=== PATIENT | female | born 1950 ===

== ENCOUNTER 2017-07-02 11:03 | Inpatient (IN) | payer MEDICARE ==
[2017-07-02] MEDS ORDERED: Sodium Chloride 0.9% 1,000 ML IV ONE (11:32)
[2017-07-02] MEDS ORDERED: Octreotide 1,250 MCG in Dextrose 5% In Water 250 ML IV STA (11:34)
[2017-07-02 11:38] LABS: BASO % 0.3 % (0.0-2.0); EOS % 0.1 % (0.0-4.0); HEMATOCRIT 40.9 % (34.0-47.0); LYMPH # 1.4 K/uL (1.0-4.3); LYMPH % 22.6 % (20.0-40.0); MEAN CELL VOLUME 86.3 fL (81.0-99.0); MEAN CORPUSCULAR HGB CONC 31.3 g/dL (33.0-37.0); MONO # 0.6 K/uL (0.0-0.8); MONO % 9.8 % (0.0-10.0); NRBC % 0.1 % (0.0-2.0); PLATELET COUNT 310 K/uL (130-400); RED CELL DISTRIBUTION WIDTH 15.6 % (11.5-14.5)
[2017-07-02] MEDS ORDERED: Pantoprazole 80 MG in Sodium Chloride 0.9% 100 ML IVP SCH (11:45)
[2017-07-02 11:47] LABS: INR 2.4
[2017-07-02 11:50] LABS: ALB/GLOB RATIO 1.3 (1.0-2.1); ALKALINE PHOSPHATASE 99 U/L (38-126); ALT/SGPT 712 U/L (9-52); AST/SGOT 738 U/L (14-36); BILIRUBIN,TOTAL 0.6 mg/dL (0.2-1.3); BLOOD UREA NITROGEN 19 mg/dL (7-17); CALCIUM 8.9 mg/dl (8.6-10.4); CARBON DIOXIDE 23 mmol/L (22-30); CHLORIDE 104 mmol/L (98-107); GFR AFRICAN-AMERICAN 23; GLUCOSE,RANDOM 73 mg/dL (65-105); POTASSIUM 3.2 mmol/L (3.6-5.2); SODIUM 147 mmol/L (132-148)
--- NOTE | 2017-07-02 11:59 | RAD ---
PROCEDURE: CHEST RADIOGRAPH, 1 VIEW HISTORY: R/O Infiltrate S/P intubation COMPARISON: None available. FINDINGS: LUNGS: There are heterogeneous patchy opacities at the right lung more prominent at the lower lobe. The ET tube is seen at appropriate position with the T is approximately 3.4 centimeter above the [place]. PLEURA: No pneumothorax or pleural fluid seen. CARDIOVASCULAR: Normal. OSSEOUS STRUCTURES: No significant abnormalities. VISUALIZED UPPER ABDOMEN: The NG tube seen extending to the stomach. OTHER FINDINGS: None. IMPRESSION: Diffuse heterogeneous opacities at the right lung more prominent at the right lower lobe. Appropriate position of the support devices.
[2017-07-02] MEDS ORDERED: Iodixanol 320 MG/ML 200 ML BOTTLE IV ONE (12:04)
--- NOTE | 2017-07-02 12:07 | C.PDOC ---
History Of Present Illness Patient is a 66 y/o female who presents to the ED by EMS for unconsciousness and hematemesis. 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 Chief Complaint (Nursing): GI Problem Past Medical History Vital Signs: Last Vital Signs Temp 99.1 F 07/02/17 11:04 Pulse 73 07/02/17 11:15 Resp 20 07/02/17 11:15 BP 72/43 L 07/02/17 11:15 Pulse Ox - Medical History PMH: Atrial Fibrillation, HTN - Social History Hx Alcohol Use: No Hx Substance Use: No (unknown) - Immunization History Hx Tetanus Toxoid Vaccination: No Hx Influenza Vaccination: No ED Course And Treatment - Laboratory Results Result Diagrams: 07/02/17 11:32 Disposition - Disposition Forms: Method (Czech)
--- NOTE | 2017-07-02 12:07 | C.PDOC ---
History Of Present Illness Patient is a 66 y/o female who presents to the ED for GI bleed. EMS was called by daughter who found her at home unconscious with blood coming out of mouth; patient given one push epi x1 and i-gel airway by EMS prior to arrival. EMS reports patient was 66 systolic and actively puking blood in bed. Patient was last known well yesterday; family states patient is on morphine and xanax, and sometimes can take more than prescribed amount due to forgetfulness. Chief Complaint (Nursing): GI Problem History Per: Patient History/Exam Limitations: other (LOC. ) Onset/Duration Of Symptoms: Mins Current Symptoms Are (Timing): Still Present Number Of Bleeding Episodes: Unknown Associated Symptoms: Hematemesis Recent travel outside of the [place]: No Additional History Per: EMS, Family Past Medical History Reviewed: Historical Data, Nursing Documentation, Vital Signs Vital Signs: Last Vital Signs Temp 97.8 F 07/02/17 13:16 Pulse 105 H 07/02/17 13:16 Resp 80 H 07/02/17 13:16 BP 92/62 L 07/02/17 13:16 Pulse Ox 85 L 07/02/17 13:16 - Medical History PMH: Atrial Fibrillation, Bipolar Disorder, Depression, HTN Surgical History: No Surg Hx Family History: States: No Known Family Hx - Social History Hx Alcohol Use: No Hx Substance Use: No (unknown) - Immunization History Hx Tetanus Toxoid Vaccination: No Hx Influenza Vaccination: No Review Of Systems Review Of Systems: ROS cannot be obtained secondary to pt's inabilty to answer questions. Physical Exam - Physical Exam Appears: Other (unconscious; blood on mouth/face) Head: Atraumatic, Normacephalic Eye(s): bilateral: Normal Inspection (pupils dilated) Oral Mucosa: Moist Respiratory: Decreased Breath Sounds (hoarse bilaterally; sounds diminished on R side. ) Gastrointestinal/Abdominal: Soft, No Distention ED Course And Treatment - Laboratory Results Result Diagrams: 07/02/17 11:32 07/02/17 11:32 - Physician Consult Information Time Consulting Physician Contacted: 12:00 Physician Contacted: Mario Cates Critical Care Time - Critical Care Note Total Time (in mins): 60 Comments: critical patient Documented critical care: time excludes all time spent performing seperately billable procedures. Procedure: Blank - Time Time Performed: 11:15 - Time Out Time Out: Patient ID confirmed - Procedure Procedure:: intubation - Consent obtained: Consent obtained: Emergent consent implied - Performed by: Performed by:: Attending physician - Indications Indications(s):: unresponsive, airway management - Contraindications: Contraindications:: None - Result Result: Successful - Patient Tolerated Procedure Patient Tolerated Procedure:: Well Progress - Time Time: 01:20 Medical Decision Making Medical Decision Making: ED: Patient was not maintaining own airway and was administered glidescope intubation. Two IV lines were placed and patient was started on non-type blood; patient was pressurized NS and was started on pressers for HTN. ICU attending at bedside along with family. To be admitted in ICU. Plan: Blood work, CT Chest and CT A/P, EKG, UA, and ventilators ordered; Ocretoctide and Protonix IV drips and IV fluids administered. Disposition Discussed With : Bora Ball Counseled Patient/Family Regarding: Studies Performed, Diagnosis - Disposition Disposition: HOSPITALIZED Disposition Time: 12:05 Condition: CRITICAL - Clinical Impression Clinical Impression: Gastrointestinal hemorrhage - Scribe Statement The provider has reviewed the documentation as recorded by the Scribe Karime Aguirre All medical record entries made by the Scribe were at my direction and personally dictated by me. I have reviewed the chart and agree that the record accurately reflects my personal performance of the history, physical exam, medical decision making, and the department course for this patient. I have also personally directed, reviewed, and agree with the discharge instructions and disposition. Decision To Admit - Pt Status Changed To: Hospital Disposition Of: Inpatient - Admit Certification Admit to Inpatient:: After my assessment, the patient will require hospitalization for at least two midnights. This is because of the severity of symptoms shown, intensity of services needed, and/or the medical risk in this patient being treated as an outpatient. - InPatient: Physician Admission Certification: I certify that this patient requires 2 or more midnights of care for the following reason:: gi bleed - . Bed Request Type: ICU Patient Diagnosis: Gastrointestinal hemorrhage Addendum Addendum: 07/02/17 13:[address] to right groin , no complications
[2017-07-02] MEDS ORDERED: Sodium Chloride 0.9% 3,000 ML IV ONE (12:26)
[2017-07-02] MEDS: Pantoprazole 80 MG in Sodium Chloride 0.9% 100 ML IVPB SCH ×2 (13:04→21:59)
[2017-07-02 13:05] LABS: LARGE PLATELETS PRESENT; METAMYELOCYTE 4 % (0-0); MYELOCYTE 1 % (0-0); NEUTROPHIL 39 % (50-75); PLATELET CLUMPS PRESENT; TOTAL CELLS COUNTED 100
[2017-07-02 13:06] LABS: SPHEROCYTES SLIGHT
[2017-07-02] MEDS: Phenylephrine 30 MG in Sodium Chloride 0.9% 250 ML IV PRN ×2 (13:06→19:49)
[2017-07-02 13:35] LABS: RBC URINE 11 /hpf (0-3); URINE BACTERIA OCC (<OCC); URINE BILIRUBIN NEGATIVE (NEGATIVE); URINE BLOOD 3+ (NEGATIVE); URINE GLUCOSE (UA) NORMAL (Normal); URINE KETONE NEGATIVE (NEGATIVE); URINE LEUKOCYTE ESTERASE NEG Leu/uL (Negative); URINE PROTEIN 2+ mg/dL (NEGATIVE); URINE UROBILINOGEN NORMAL mg/dL (0.2-1.0); WBC URINE 5 /hpf (0-5)
[2017-07-02 13:37] LABS: URINE COLOR YELLOW (YELLOW)
[2017-07-02] MEDS ORDERED: Naloxone 0.4 mg/ml Inj (Adult) ONE (14:05)
[2017-07-02] MEDS ORDERED: Sodium Chloride 0.9% 0 ML IV ONE (14:11)
[2017-07-02] MEDS ORDERED: EPINEPHrine 1 mg/ml (1:1000) Inj ONE (14:11)
[2017-07-02] MEDS ORDERED: Lidocaine 2% Inj (20ml) ONE (14:12)
[2017-07-02 14:35] LABS: ALCOHOL SERUM < 10 mg/dl (0-10)
--- NOTE | 2017-07-02 14:38 | CP.PCM.CON ---
History of Present Illness - History of Present Illness History of Present Illness: 66yo F. PMHx Atrial Fibrillation, Bipolar Disorder, Depression, HTN. was found down at home by daughter vomiting bloody material. EMS called, intubated with LMA in field, ketamine and vecuronium given. Reintubated in ED. Transfused 2 units PRBC and given 4L saline boluses. Femoral TLC placed sterile in ED. Transferred to ICU, urgent bronchoscopy performed for suspected aspiration with ongoing hypoxia. Review of Systems - Review of Systems Systems not reviewed;Unavailable: Intubated Past Patient History - Past Social History Smoking Status: Heavy Smoker > 10 Cigarettes Daily - CARDIAC Hx Atrial Fibrillation: Yes Hx Hypertension: Yes - PSYCHIATRIC Hx Bipolar Disorder: Yes Hx Depression: Yes Hx Substance Use: No (unknown) - SURGICAL HISTORY Hx Surgeries: No - ANESTHESIA Hx Anesthesia: No Hx Anesthesia Reactions: No Meds Allergies/Adverse Reactions: Allergies Allergy/AdvReac Type Severity Reaction Status Date / Time No Known Allergies Allergy Unverified 07/02/17 11:13 - Medications Medications: Current Medications Sodium Chloride (Sodium Chloride 0.9%) 1,000 mls @ 100 mls/hr IV .Q10H ONE Stop: 07/02/17 21:31 Last Admin: 07/02/17 11:30 Dose: 100 mls/hr Octreotide Acetate 1,250 mcg/ (Dextrose) 252.5 mls @ 5.05 mls/hr IV .Q24H STA; 25 MCG/HR PRN Reason: Protocol Stop: 07/03/17 11:33 Last Admin: 07/02/17 13:05 Dose: 5.05 mls/hr Pantoprazole Sodium 80 mg/ (Sodium Chloride) 100 mls @ 10 mls/hr IVPB .Q10H STEPHANE PRN Reason: 8 MG/HR Last Admin: 07/02/17 13:04 Dose: 10 mls/hr Phenylephrine HCl 30 mg/ (Sodium Chloride) 253 mls @ 50.6 mls/hr IV .Q5H PRN; Protocol; 100 MCG/MIN PRN Reason: TITRATE PER MD ORDER Last Admin: 07/02/17 13:06 Dose: 50.6 mls/hr Sodium Chloride (Sodium Chloride 0.9%) 3,000 mls @ 1,000 mls/hr IV .Q3H ONE Stop: 07/02/17 15:25 Last Admin: 07/02/17 13:05 Dose: 1,000 mls/hr Physical Exam - Head Exam Head Exam: ATRAUMATIC, NORMAL INSPECTION, NORMOCEPHALIC - Eye Exam Eye Exam: Normal appearance Pupil Exam: Fixed, Miosis. absent: NORMAL ACCOMODATION, PERRL - ENT Exam ENT Exam: Mucous Membranes Moist, Normal Exam - Respiratory Exam Respiratory Exam: Rhonchi - Cardiovascular Exam Cardiovascular Exam: Tachycardia, REGULAR RHYTHM - GI/Abdominal Exam GI & Abdominal Exam: Normal Bowel Sounds, Soft. absent: Tenderness - Neurological Exam Additional comments: unresponsive, no corneals, no gag, possibly paralytic still present. Results - Vital Signs Recent Vital Signs: Last Vital Signs Temp 97.6 F 07/02/17 13:45 Pulse 105 H 07/02/17 13:45 Resp 20 07/02/17 13:45 BP 103/51 L 07/02/17 13:45 Pulse Ox 8 L 07/02/17 13:45 - Labs Result Diagrams: 07/02/17 11:32 07/02/17 11:32 Labs: Laboratory Results - last 24 hr 07/02/17 07/02/17 13:09 13:09 Urine Color Yellow Urine Clarity Hazy Urine pH 5.0 Ur Specific [place] 1.025 Urine Protein 2+ H Urine Glucose (UA) Normal Urine Ketones Negative Urine Blood 3+ H Urine Nitrate Negative Urine Bilirubin Negative Urine Urobilinogen Normal Ur Leukocyte Esterase Neg Urine WBC (Auto) 5 Urine RBC (Auto) 11 H Ur Squamous Epith Cells 1 Amorphous Sediment Few H Urine Bacteria Occ H Urine Opiates Screen Positive Urine Methadone Screen Negative Ur Barbiturates Screen Negative Ur Phencyclidine Scrn Negative Ur Amphetamines Screen Negative U Benzodiazepines Scrn Positive U Oth Cocaine Metabols Negative U Cannabinoids Screen Negative Assessment & Plan (1) Gastrointestinal hemorrhage Assessment and Plan: 66yo F. PMHx Atrial Fibrillation, Bipolar Disorder, Depression, HTN. p/w possible coffee ground emesis c/b aspiration. Neuro: unresponsive, possible paralytic (given by EMS) still present. Patient may have overdosed on Xanax and Morphine, gave Narcan, no change. Pulm: aspiration pneumonitis, probable pneumonia. Performed bronch - CV: septic shock, started on levophed. Hem: no anemia on first h/h (prior to transfusion), making it unlikely GI bleed. 2 PRBC units given in ED with 4L saline boluses. Renal: acute renal failure, baseline unknown. Will monitor urine output. Endo: no acute issues GI: GI consulted for EGD for possible GI bleed, octreotide gtt, protonix gtt. ID: septic shock, starting Zosyn for aspiration pneumonia. DVT proph - heparin sq GI proph - protonix gtt rick for strict I/O's during acute illness Code status - full code Critical Care Time spent 50 minutes Multi-disciplinary rounds were performed with house staff, nursing, speech therapy, respiratory therapy, pharmacy and nutrition with integrated input from the primary team/attending and other consulting services. The documented time is cumulative and includes review of patient data/exams/labs/chart review and examination of the patient on rounds and throughout the day; time is exclusive of any procedures or teaching time. Status: Acute
[2017-07-02] MEDS ORDERED: Propofol 10 mg/ml Inj (20 ML) ONE (15:35)
[2017-07-02] MEDS ORDERED: Naloxone 0.4 mg/ml Inj (Adult) IVP ONE (15:53)
[2017-07-02] MEDS: Piperacill/Tazo 2.25gm in Dex 2.25 GM/50 ML BAG IVPB SCH ×2 (16:09→23:21)
--- NOTE | 2017-07-02 16:11 | PCM.OP ---
Operative Report - Operative Report Date of Surgery/Procedure: 07/02/17 Time of Surgery/Procedure: 16:50 Surgeon: Tono Tejada Anesthesia/Sedation: none Pre-Operative Diagnosis: aspiration pneumonitis Post-Operative Diagnosis: aspiration pneumonitis Indication for Surgery: to try to improve oxygenation Operative Findings: Vilma visualized and normal. The trachobronchial tree of the right and left lungs was examined to at least the first subsegmental level. Bronchial mucosa and anatomy were normal. Lots of bilious material seen throughout the right lung [place]. Performed bronchoalveolar lavage of all branches up to at least the first subsegmental level. No endobronchial lesions were noted and no secretions. Patient tolerated procedure well. Patient also did not react throughout procedure with no sedation given. Procedure/Operation Description: bronchoscopy Estimated Blood Loss: 0ml Complications: none Discharge & Condition: still in septic shock on pressors, before and after procedure.
[2017-07-02 16:36] LABS: HEMATOCRIT 52.7 % (34.0-47.0); MEAN CELL VOLUME 86.6 fL (81.0-99.0); MEAN CORPUSCULAR HEMOGLOBIN 27.3 pg (27.0-31.0); MEAN CORPUSCULAR HGB CONC 31.5 g/dL (33.0-37.0); RED CELL DISTRIBUTION WIDTH 15.7 % (11.5-14.5)
[2017-07-02 16:43] LABS: WHITE BLOOD COUNT 2.5 K/uL (4.8-10.8)
[2017-07-02 16:46] LABS: POTASSIUM 3.9 mmol/L (3.6-5.2)
[2017-07-02 16:48] LABS: ALB/GLOB RATIO 1.1 (1.0-2.1); BILIRUBIN,TOTAL 0.9 mg/dL (0.2-1.3); TOTAL PROTEIN 5.6 g/dL (6.3-8.3)
[2017-07-02 16:49] LABS: CALCIUM 7.3 mg/dl (8.6-10.4); MAGNESIUM 1.7 mg/dL (1.6-2.3); PHOSPHOROUS 5.6 mg/dL (2.5-4.5)
[2017-07-02 17:29] LABS: ABG MECHANICAL RATE 20; ARTERIAL BLOOD GAS MODE PRVC; ARTERIAL BLOOD HGB O2 SAT 88.2 % (95.0-98.0); ATERIAL BLOOD GAS PEEP 14; CARBOXYHEMOGLOBIN 1.3 % (0.5-1.5); DRAW SITE RBA; HHB 9.7 % (0.0-5.0); METHEMOGLOBIN 0.9 % (0.0-3.0)
[2017-07-02 17:43] LABS: ABG ALLEN TEST POS; ARTERIAL BLOOD GAS MODE PRVC; ARTERIAL BLOOD HGB O2 SAT 85.5 % (95.0-98.0); ATERIAL BLOOD GAS PEEP 5; CARBOXYHEMOGLOBIN 2.1 % (0.5-1.5); DRAW SITE RR; HHB 11.7 % (0.0-5.0); METHEMOGLOBIN 0.7 % (0.0-3.0)
[2017-07-02] MEDS ORDERED: Sodium Bicarbonate 8.4% 150 MEQ in Sodium Chloride 0.45% 850 ML IV SCH (17:45)
[2017-07-02] MEDS ORDERED: Sodium Bicarbonate (8.4%) 50 Meq Syringe IVP ONE (17:46)
[2017-07-02] MEDS ORDERED: Albumin Human 25% (12.5 gm/50 ml) IV ONE (19:12)
[2017-07-02 20:27] LABS: VENOUS BLOOD GAS BASE EXCESS -6.9 mmol/L (0.0-2.0); VENOUS BLOOD GAS MODE PRVC; VENOUS BLOOD GAS PCO2 90 mmHg (40-60); VENOUS BLOOD PH 7.06 (7.32-7.43)
[2017-07-02 20:31] LABS: EOS % 0.1 % (0.0-4.0); LYMPH # 0.3 K/uL (1.0-4.3); MONO # 0.1 K/uL (0.0-0.8)
[2017-07-02 20:36] LABS: BASO % 0.1 % (0.0-2.0); HEMATOCRIT 50.4 % (34.0-47.0); LYMPH % 29.6 % (20.0-40.0); MEAN CELL VOLUME 85.2 fL (81.0-99.0); MEAN CORPUSCULAR HEMOGLOBIN 27.4 pg (27.0-31.0); MEAN CORPUSCULAR HGB CONC 32.2 g/dL (33.0-37.0); MEAN PLATELET VOLUME 9.1 fL (7.2-11.7); MONO % 5.4 % (0.0-10.0); NRBC % 2.1 % (0.0-2.0); PLATELET COUNT 188 K/uL (130-400); RED CELL DISTRIBUTION WIDTH 15.7 % (11.5-14.5)
[2017-07-02 20:45] LABS: INR 2.6
[2017-07-02 20:47] LABS: ALB/GLOB RATIO 1.2 (1.0-2.1); BILIRUBIN,TOTAL 0.9 mg/dL (0.2-1.3); CALCIUM 7.3 mg/dl (8.6-10.4); MAGNESIUM 1.6 mg/dL (1.6-2.3); PHOSPHOROUS 5.3 mg/dL (2.5-4.5); POTASSIUM 3.5 mmol/L (3.6-5.2); TOTAL PROTEIN 5.2 g/dL (6.3-8.3)
[2017-07-02 21:42] LABS: METAMYELOCYTE 1 % (0-0); NEUTROPHIL 41 % (50-75); NUCLEATED RED BLOOD CELL 2 % (0-0); TOTAL CELLS COUNTED 100
[2017-07-02 21:44] LABS: LARGE PLATELETS PRESENT
--- NOTE | 2017-07-02 22:38 | CP.PCM.HP ---
History of Present Illness - History of Present Illness History of Present Illness: 66yo F. PMHx Atrial Fibrillation, Bipolar Disorder, Depression, HTN. was found down at home by daughter vomiting bloody material. EMS called, intubated with LMA in field, ketamine and vecuronium given. Reintubated in ED. Transfused 2 units PRBC and given 4L saline boluses. Femoral TLC placed sterile in ED. Transferred to ICU, urgent bronchoscopy performed for suspected aspiration with ongoing hypoxia. Present on Admission - Present on Admission Any Indicators Present on Admission: No Past Patient History - Past Medical History & Family History Past Medical History?: Yes - Past Social History Smoking Status: Heavy Smoker > 10 Cigarettes Daily - CARDIAC Hx Atrial Fibrillation: Yes Hx Hypertension: Yes - PULMONARY Hx Respiratory Disorders: No - NEUROLOGICAL Hx Neurological Disorder: No - HEENT Hx HEENT Problems: No - RENAL Hx Chronic Kidney Disease: No - ENDOCRINE/METABOLIC Hx Endocrine Disorders: No - HEMATOLOGICAL/ONCOLOGICAL Hx Blood Disorders: No - INTEGUMENTARY Hx Dermatological Problems: No - MUSCULOSKELETAL/RHEUMATOLOGICAL Hx Falls: Yes - GASTROINTESTINAL Hx Gastrointestinal Disorders: No - GENITOURINARY/GYNECOLOGICAL Hx Genitourinary Disorders: No - PSYCHIATRIC Hx Bipolar Disorder: Yes Hx Depression: Yes Hx Substance Use: No (unknown) - SURGICAL HISTORY Hx Surgeries: No - ANESTHESIA Hx Anesthesia: No Hx Anesthesia Reactions: No Meds Allergies/Adverse Reactions: Allergies Allergy/AdvReac Type Severity Reaction Status Date / Time No Known Allergies Allergy Unverified 07/02/17 11:13 Results - Vital Signs Recent Vital Signs: Last Vital Signs Temp 98.1 F 07/02/17 20:00 Pulse 114 H 07/02/17 20:30 Resp 26 H 07/02/17 20:30 BP 72/36 L 07/02/17 20:28 Pulse Ox 89 L 07/02/17 20:30 - Labs Result Diagrams: 07/03/17 06:00 07/03/17 06:00 Labs: Laboratory Results - last 24 hr 07/02/17 07/02/17 07/02/17 13:09 13:09 16:33 WBC 2.5 L D RBC 6.09 H Hgb 16.6 H D Hct 52.7 H MCV 86.6 MCH 27.3 MCHC 31.5 L RDW 15.7 H Plt Count 226 MPV 9.0 Neut % (Auto) Lymph % (Auto) [place] % (Auto) Eos % (Auto) Baso % (Auto) Neut # Lymph # [place] # Eos # Baso # Neutrophils % (Manual) Band Neutrophils % Lymphocytes % (Manual) Monocytes % (Manual) Metamyelocytes % Nucleated RBC % Platelet Estimate Large Platelets Poikilocytosis (manual Anisocytosis (manual) Ovalocytes PT INR APTT Puncture Site pCO2 pO2 HCO3 ABG pH ABG Total CO2 ABG O2 Saturation ABG Base Excess ABG Hemoglobin ABG Carboxyhemoglobin POC ABG HHb (Measured) ABG Methemoglobin Yaw Test VBG pH VBG pCO2 VBG HCO3 VBG Total CO2 VBG O2 Sat (Calc) VBG Base Excess VBG Potassium A-a O2 Difference Respiratory Index Hgb O2 Saturation Glucose Lactate Vent Mode Mechanical Rate FiO2 Tidal Volume PEEP Crit Value Called To Crit Value Called By Crit Value Read Back Blood Gas Notified Time Sodium Potassium Chloride Carbon Dioxide Anion Gap BUN Creatinine Est GFR ( Amer) Est GFR (Non-Af Amer) Random Glucose Lactic Acid Calcium Phosphorus Magnesium Total Bilirubin AST ALT Alkaline Phosphatase Ammonia Total Creatine Kinase CK-MB (Mass) Troponin I, Quant Total Protein Albumin Globulin Albumin/Globulin Ratio Venous Blood Potassium Urine Color Yellow Urine Clarity Hazy Urine pH 5.0 Ur Specific [place] 1.025 Urine Protein 2+ H Urine Glucose (UA) Normal Urine Ketones Negative Urine Blood 3+ H Urine Nitrate Negative Urine Bilirubin Negative Urine Urobilinogen Normal Ur Leukocyte Esterase Neg Urine WBC (Auto) 5 Urine RBC (Auto) 11 H Ur Squamous Epith Cells 1 Amorphous Sediment Few H Urine Bacteria Occ H Urine Opiates Screen Positive Urine Methadone Screen Negative Ur Barbiturates Screen Negative Ur Phencyclidine Scrn Negative Ur Amphetamines Screen Negative U Benzodiazepines Scrn Positive U Oth Cocaine Metabols Negative U Cannabinoids Screen Negative 07/02/17 07/02/17 07/02/17 16:33 16:33 17:25 WBC RBC Hgb Hct MCV MCH MCHC RDW Plt Count MPV Neut % (Auto) Lymph % (Auto) [place] % (Auto) Eos % (Auto) Baso % (Auto) Neut # Lymph # [place] # Eos # Baso # Neutrophils % (Manual) Band Neutrophils % Lymphocytes % (Manual) Monocytes % (Manual) Metamyelocytes % Nucleated RBC % Platelet Estimate Large Platelets Poikilocytosis (manual Anisocytosis (manual) Ovalocytes PT INR APTT Puncture Site Rba pCO2 84 H* pO2 58 L HCO3 12.3 L ABG pH 6.95 L* ABG Total CO2 21.1 L ABG O2 Saturation 90.1 L ABG Base Excess -15.8 L ABG Hemoglobin 17.1 ABG Carboxyhemoglobin 1.3 POC ABG HHb (Measured) 9.7 H ABG Methemoglobin 0.9 Yaw Test Na VBG pH VBG pCO2 VBG HCO3 VBG Total CO2 VBG O2 Sat (Calc) VBG Base Excess VBG Potassium A-a O2 Difference 550.0 Respiratory Index 9.5 Hgb O2 Saturation 88.2 L Glucose Lactate Vent Mode Prvc Mechanical Rate 20 FiO2 100.0 Tidal Volume 470 PEEP 14 Crit Value Called To [facility] nurse abel Crit Value Called By Fariha vyas Crit Value Read Back Y Blood Gas Notified Time 1729 Sodium 142 Potassium 3.9 Chloride 111 H Carbon Dioxide 21 L Anion Gap 14 BUN 20 H Creatinine 2.5 H Est GFR ( Amer) 23 Est GFR (Non-Af Amer) 19 Random Glucose 58 L Lactic Acid 3.0 H Calcium 7.3 L Phosphorus 5.6 H Magnesium 1.7 Total Bilirubin 0.9 AST 3894 H ALT 4119 H Alkaline Phosphatase 110 Ammonia Total Creatine Kinase 6070 H CK-MB (Mass) 33.1 H Troponin I, Quant 1.9000 H* Total Protein 5.6 L Albumin 3.0 L Globulin 2.6 Albumin/Globulin Ratio 1.1 Venous Blood Potassium Urine Color Urine Clarity Urine pH Ur Specific [place] Urine Protein Urine Glucose (UA) Urine Ketones Urine Blood Urine Nitrate Urine Bilirubin Urine Urobilinogen Ur Leukocyte Esterase Urine WBC (Auto) Urine RBC (Auto) Ur Squamous Epith Cells Amorphous Sediment Urine Bacteria Urine Opiates Screen Urine Methadone Screen Ur Barbiturates Screen Ur Phencyclidine Scrn Ur Amphetamines Screen U Benzodiazepines Scrn U Oth Cocaine Metabols U Cannabinoids Screen 07/02/17 07/02/17 07/02/17 20:21 20:26 20:26 WBC 1.0 L* D RBC 5.91 H Hgb 16.2 H Hct 50.4 H MCV 85.2 MCH 27.4 MCHC 32.2 L RDW 15.7 H Plt Count 188 MPV 9.1 Neut % (Auto) 64.8 Lymph % (Auto) 29.6 [place] % (Auto) 5.4 Eos % (Auto) 0.1 Baso % (Auto) 0.1 Neut # 0.6 L Lymph # 0.3 L [place] # 0.1 Eos # 0.0 Baso # 0.0 Neutrophils % (Manual) 41 L Band Neutrophils % 17 H* Lymphocytes % (Manual) 35 Monocytes % (Manual) 6 Metamyelocytes % 1 H Nucleated RBC % 2 H Platelet Estimate Normal Large Platelets Present Poikilocytosis (manual Slight Anisocytosis (manual) Slight Ovalocytes Slight PT 29.9 H* INR 2.6 APTT 33 Puncture Site pCO2 pO2 25 L HCO3 ABG pH ABG Total CO2 ABG O2 Saturation ABG Base Excess ABG Hemoglobin ABG Carboxyhemoglobin POC ABG HHb (Measured) ABG Methemoglobin Yaw Test VBG pH 7.06 L* VBG pCO2 90 H* VBG HCO3 17.5 VBG Total CO2 28.3 H VBG O2 Sat (Calc) 48.4 VBG Base Excess -6.9 L VBG Potassium 3.5 L A-a O2 Difference Respiratory Index Hgb O2 Saturation Glucose 52 L Lactate 3.9 H Vent Mode Mechanical Rate FiO2 100.0 Tidal Volume PEEP 18 Crit Value Called To Dr. diop Crit Value Called By Fariha vyas Crit Value Read Back Y Blood Gas Notified Time 2026 Sodium 144.0 Potassium Chloride 109.0 H Carbon Dioxide Anion Gap BUN Creatinine Est GFR ( Amer) Est GFR (Non-Af Amer) Random Glucose Lactic Acid Calcium Phosphorus Magnesium Total Bilirubin AST ALT Alkaline Phosphatase Ammonia Total Creatine Kinase CK-MB (Mass) Troponin I, Quant Total Protein Albumin Globulin Albumin/Globulin Ratio Venous Blood Potassium 3.5 L Urine Color Urine Clarity Urine pH Ur Specific [place] Urine Protein Urine Glucose (UA) Urine Ketones Urine Blood Urine Nitrate Urine Bilirubin Urine Urobilinogen Ur Leukocyte Esterase Urine WBC (Auto) Urine RBC (Auto) Ur Squamous Epith Cells Amorphous Sediment Urine Bacteria Urine Opiates Screen Urine Methadone Screen Ur Barbiturates Screen Ur Phencyclidine Scrn Ur Amphetamines Screen U Benzodiazepines Scrn U Oth Cocaine Metabols U Cannabinoids Screen 07/02/17 07/02/17 20:26 20:26 WBC RBC Hgb Hct MCV MCH MCHC RDW Plt Count MPV Neut % (Auto) Lymph % (Auto) [place] % (Auto) Eos % (Auto) Baso % (Auto) Neut # Lymph # [place] # Eos # Baso # Neutrophils % (Manual) Band Neutrophils % Lymphocytes % (Manual) Monocytes % (Manual) Metamyelocytes % Nucleated RBC % Platelet Estimate Large Platelets Poikilocytosis (manual Anisocytosis (manual) Ovalocytes PT INR APTT Puncture Site pCO2 pO2 HCO3 ABG pH ABG Total CO2 ABG O2 Saturation ABG Base Excess ABG Hemoglobin ABG Carboxyhemoglobin POC ABG HHb (Measured) ABG Methemoglobin Yaw Test VBG pH VBG pCO2 VBG HCO3 VBG Total CO2 VBG O2 Sat (Calc) VBG Base Excess VBG Potassium A-a O2 Difference Respiratory Index Hgb O2 Saturation Glucose Lactate Vent Mode Mechanical Rate FiO2 Tidal Volume PEEP Crit Value Called To Crit Value Called By Crit Value Read Back Blood Gas Notified Time Sodium 146 Potassium 3.5 L Chloride 107 Carbon Dioxide 27 Anion Gap 16 BUN 22 H Creatinine 2.8 H Est GFR ( Amer) 21 Est GFR (Non-Af Amer) 17 Random Glucose 42 L Lactic Acid Calcium 7.3 L Phosphorus 5.3 H Magnesium 1.6 Total Bilirubin 0.9 AST 4880 H ALT 4012 H Alkaline Phosphatase 100 Ammonia 29 Total Creatine Kinase 5456 H CK-MB (Mass) Troponin I, Quant Total Protein 5.2 L Albumin 2.8 L Globulin 2.4 Albumin/Globulin Ratio 1.2 Venous Blood Potassium Urine Color Urine Clarity Urine pH Ur Specific [place] Urine Protein Urine Glucose (UA) Urine Ketones Urine Blood Urine Nitrate Urine Bilirubin Urine Urobilinogen Ur Leukocyte Esterase Urine WBC (Auto) Urine RBC (Auto) Ur Squamous Epith Cells Amorphous Sediment Urine Bacteria Urine Opiates Screen Urine Methadone Screen Ur Barbiturates Screen Ur Phencyclidine Scrn Ur Amphetamines Screen U Benzodiazepines Scrn U Oth Cocaine Metabols U Cannabinoids Screen
[2017-07-02 22:41] LABS: VENOUS BLOOD GAS MODE PRVC; VENOUS BLOOD GAS PCO2 81 mmHg (40-60); VENOUS BLOOD PH 7.09 (7.32-7.43)
[2017-07-02] MEDS ORDERED: Dextrose 50% SYRINGE Inj (50 ml) IV STA (23:04)
[2017-07-02] MEDS: Sodium Bicarbonate 8.4% 150 MEQ in Dextrose 5% In Water 1,000 ML IV SCH (23:39)
[2017-07-03] MEDS ORDERED: Budesonide 0.5 mg/2 ml Inhal Susp UD INH SCH (00:08)
[2017-07-03 01:12] LABS: ABG ALLEN TEST POS; ABG MECHANICAL RATE 28; ARTERIAL BLOOD GAS MODE PRVC; ATERIAL BLOOD GAS PEEP 16; DRAW SITE R RAD
[2017-07-03] MEDS: Phenylephrine 30 MG in Sodium Chloride 0.9% 250 ML IV PRN ×5 (04:46→21:07)
[2017-07-03 06:11] LABS: BASO % 0.5 % (0.0-2.0); EOS # 0.1 K/uL (0.0-0.7); EOS % 2.5 % (0.0-4.0); LYMPH # 0.4 K/uL (1.0-4.3); LYMPH % 12.5 % (20.0-40.0); MEAN CELL VOLUME 85.5 fL (81.0-99.0); MEAN CORPUSCULAR HEMOGLOBIN 27.5 pg (27.0-31.0); MEAN CORPUSCULAR HGB CONC 32.2 g/dL (33.0-37.0); MEAN PLATELET VOLUME 9.9 fL (7.2-11.7); MONO # 0.1 K/uL (0.0-0.8); MONO % 2.5 % (0.0-10.0); NRBC % 1.3 % (0.0-2.0); PLATELET COUNT 150 K/uL (130-400); RED CELL DISTRIBUTION WIDTH 15.6 % (11.5-14.5); WHITE BLOOD COUNT 3.4 K/uL (4.8-10.8)
[2017-07-03 06:25] LABS: POTASSIUM 2.8 mmol/L (3.6-5.2)
[2017-07-03 06:27] LABS: BILIRUBIN,TOTAL 1.1 mg/dL (0.2-1.3)
[2017-07-03 06:28] LABS: ALB/GLOB RATIO 1.3 (1.0-2.1); CALCIUM 6.8 mg/dl (8.6-10.4); MAGNESIUM 1.4 mg/dL (1.6-2.3); TOTAL PROTEIN 4.9 g/dL (6.3-8.3)
[2017-07-03 06:36] LABS: INR 2.6
[2017-07-03 06:56] LABS: TROPONIN I 4.86 ng/mL (0.00-0.120)
[2017-07-03] MEDS: Pantoprazole 80 MG in Sodium Chloride 0.9% 100 ML IVPB SCH (07:05)
[2017-07-03] MEDS: Piperacill/Tazo 2.25gm in Dex 2.25 GM/50 ML BAG IVPB SCH ×3 (07:11→22:50)
[2017-07-03] MEDS: Magnesium Sulfate 1 gm in D5W 1 GM/100 ML BAG IVPB SCH ×2 (07:45→09:13)
[2017-07-03] MEDS: Sodium Bicarbonate 8.4% 150 MEQ in Dextrose 5% In Water 1,000 ML IV SCH ×3 (07:46→22:07)
[2017-07-03] MEDS: Albuterol-Ipratrop 3 mg / 0.5 (3 ml) UD INH SCH ×2 (07:55→13:53)
--- NOTE | 2017-07-03 08:23 | CP.PCM.CON ---
History of Present Illness - History of Present Illness History of Present Illness: consultation requested for hx and management of atrial fibrillation HPI: 66-year-old female with past medical history significant for chronic atrial fibrillation on oral anticoagulation with Eliquis beta-blockers had CARIE cardioversion 2 while she was in [place]. According to the daughter they just moved over from [place] and [place] and who was recently evaluated by a clinical research director in [place]. At baseline she had severely limited activity and was barely able to do our activities of daily living without assistance. Done the day of presentation she was found by her daughter on the morning in her bed with noted puking of blood on the bedside. EMS found her blood pressure to be in the 60s she was given 1 dose of epinephrine and was brought to the emergency room and electively intubated and apparently patient had laryngeal mask airway is on these field and was brought over to the emergency room where she was intubated emergently. Patient at the time of my evaluation was in severe state of shock with 4 pressors unresponsive. Heart rate was 140s range. Review of Systems - Review of Systems All systems: reviewed and no additional remarkable complaints except - Constitutional Constitutional: As Per HPI - EENT Eyes: As Per HPI Ears: As Per HPI Nose/Mouth/Throat: As Per HPI - Breasts Breasts: As Per HPI - Cardiovascular Cardiovascular: As Per HPI - Respiratory Respiratory: As Per HPI - Gastrointestinal Gastrointestinal: As Per HPI - Genitourinary Genitourinary: As Per HPI - Reproductive: Female Reproductive:Female: As Per HPI - Menstruation Menstruation: As Per HPI - Musculoskeletal Musculoskeletal: As Per HPI - Integumentary Integumentary: As Per HPI - Neurological Neurological: As Per HPI - Psychiatric Psychiatric: As Per HPI - Endocrine Endocrine: As Per HPI - Hematologic/Lymphatic Hematologic: As Per HPI Past Patient History - Past Medical History & Family History Past Medical History?: Yes Pertinent Family History: +ve for HTN and DM - Past Social History Smoking Status: Heavy Smoker > 10 Cigarettes Daily - CARDIAC Hx Atrial Fibrillation: Yes Hx Hypertension: Yes - PULMONARY Hx Respiratory Disorders: No - NEUROLOGICAL Hx Neurological Disorder: No - HEENT Hx HEENT Problems: No - RENAL Hx Chronic Kidney Disease: No - ENDOCRINE/METABOLIC Hx Endocrine Disorders: No - HEMATOLOGICAL/ONCOLOGICAL Hx Blood Disorders: No - INTEGUMENTARY Hx Dermatological Problems: No - MUSCULOSKELETAL/RHEUMATOLOGICAL Hx Falls: Yes - GASTROINTESTINAL Hx Gastrointestinal Disorders: No - GENITOURINARY/GYNECOLOGICAL Hx Genitourinary Disorders: No - PSYCHIATRIC Hx Bipolar Disorder: Yes Hx Depression: Yes Hx Substance Use: No (unknown) - SURGICAL HISTORY Hx Surgeries: No - ANESTHESIA Hx Anesthesia: No Hx Anesthesia Reactions: No Meds Allergies/Adverse Reactions: Allergies Allergy/AdvReac Type Severity Reaction Status Date / Time No Known Allergies Allergy Unverified 07/02/17 11:13 - Medications Medications: Current Medications Albuterol/Ipratropium (Duoneb 3 Mg/0.5 Mg (3 Ml) Ud) 3 ml INH RQ6 STEPHANE Budesonide (Pulmicort Respules) 0.5 mg INH RQ12 STEPHANE Octreotide Acetate 1,250 mcg/ (Dextrose) 252.5 mls @ 5.05 mls/hr IV .Q24H STA; 25 MCG/HR PRN Reason: Protocol Stop: 07/03/17 11:33 Last Admin: 07/02/17 13:05 Dose: 5.05 mls/hr Pantoprazole Sodium 80 mg/ (Sodium Chloride) 100 mls @ 10 mls/hr IVPB .Q10H STEPHANE PRN Reason: 8 MG/HR Last Admin: 07/03/17 07:05 Dose: 10 mls/hr Phenylephrine HCl 30 mg/ (Sodium Chloride) 253 mls @ 50.6 mls/hr IV .Q5H PRN; Protocol; 100 MCG/MIN PRN Reason: TITRATE PER MD ORDER Last Titration: 07/03/17 07:04 Dose: 118.57 mcg/min, 60 mls/hr Norepinephrine Bitartrate 8 mg (/ Sodium Chloride) 258 mls @ 7.74 mls/hr IV .Q24H PRN; Protocol; 4 MCG/MIN PRN Reason: TITRATE PER MD ORDER Last Admin: 07/03/17 07:49 Dose: 19.37 mcg/min, 37.48 mls/hr Piperacillin Sod/Tazobactam Sod (Zosyn 2.25 Gm Iv Premix) 2.25 gm in 50 mls @ 100 mls/hr IVPB Q8H STEPHANE Last Admin: 07/03/17 07:11 Dose: 100 mls/hr Sodium Bicarbonate 150 meq/ (Dextrose) 1,150 mls @ 150 mls/hr IV .Q7H40M STEPHANE Last Admin: 07/03/17 07:46 Dose: 150 mls/hr Magnesium Sulfate/Dextrose (Magnesium Sulfate 1 Gm/100 Ml D5w) 1 gm in 100 mls @ 200 mls/hr IVPB Q30M STEPHANE Stop: 07/03/17 08:29 Last Admin: 07/03/17 07:45 Dose: 200 mls/hr Potassium Chloride (Potassium Chloride 20 Meq/100 Ml) 20 meq in 100 mls @ 50 mls/hr IVPB ONCE ONE Stop: 07/03/17 09:27 Last Admin: 07/03/17 07:46 Dose: 50 mls/hr Potassium Chloride (Potassium Chloride 20 Meq/100 Ml) 20 meq in 100 mls @ 50 mls/hr IVPB ONCE ONE Stop: 07/03/17 11:29 Influenza Virus Vaccine (Afluria) 45 mcg IM .ONCE ONE Stop: 07/05/17 10:01 Pneumococcal Polyvalent Vaccine (Pneumovax 23 Vaccine) 0.5 ml IM .ONCE ONE Stop: 07/05/17 10:01 Physical Exam - Constitutional Appears: Toxic - Eye Exam Pupil Exam: Unequal - ENT Exam ENT Exam: Mucous Membranes Dry - Neck Exam Neck exam: Positive for: Normal Inspection - Respiratory Exam Respiratory Exam: Rales, Rhonchi, Respiratory Distress, Stridor - Cardiovascular Exam Cardiovascular Exam: Tachycardia, Irregular Rhythm, +S1, +S2, +S4, Systolic Murmur - GI/Abdominal Exam GI & Abdominal Exam: Hypoactive Bowel Sounds - Extremities Exam Extremities exam: Positive for: pedal pulses present - Neurological Exam Neurological exam: Altered Results - Vital Signs Recent Vital Signs: Last Vital Signs Temp 96.7 F L 07/03/17 08:00 Pulse 122 H 07/03/17 08:00 Resp 28 H 07/03/17 08:00 BP 110/86 07/03/17 08:00 Pulse Ox 97 07/03/17 08:00 - Labs Result Diagrams: 07/03/17 06:00 07/03/17 06:00 Labs: Laboratory Results - last 24 hr 07/02/17 07/02/17 07/02/17 13:09 13:09 16:33 WBC 2.5 L D RBC 6.09 H Hgb 16.6 H D Hct 52.7 H MCV 86.6 MCH 27.3 MCHC 31.5 L RDW 15.7 H Plt Count 226 MPV 9.0 Neut % (Auto) Lymph % (Auto) [place] % (Auto) Eos % (Auto) Baso % (Auto) Neut # Lymph # [facility] # Eos # Baso # Neutrophils % (Manual) Band Neutrophils % Lymphocytes % (Manual) Monocytes % (Manual) Metamyelocytes % Nucleated RBC % Platelet Estimate Large Platelets Poikilocytosis (manual Anisocytosis (manual) Ovalocytes PT INR APTT Puncture Site pCO2 pO2 HCO3 ABG pH ABG Total CO2 ABG O2 Saturation ABG Base Excess ABG Hemoglobin ABG Carboxyhemoglobin POC ABG HHb (Measured) ABG Methemoglobin Yaw Test ABG Potassium VBG pH VBG pCO2 VBG HCO3 VBG Total CO2 VBG O2 Sat (Calc) VBG Base Excess VBG Potassium A-a O2 Difference Respiratory Index Hgb O2 Saturation Glucose Lactate Vent Mode Mechanical Rate FiO2 Tidal Volume PEEP Crit Value Called To Crit Value Called By Crit Value Read Back Blood Gas Notified Time Sodium Potassium Chloride Carbon Dioxide Anion Gap BUN Creatinine Est GFR ( Amer) Est GFR (Non-Af Amer) POC Glucose (mg/dL) Random Glucose Lactic Acid Calcium Phosphorus Magnesium Total Bilirubin AST ALT Alkaline Phosphatase Ammonia Total Creatine Kinase CK-MB (Mass) Troponin I Troponin I, Quant Total Protein Albumin Globulin Albumin/Globulin Ratio Arterial Blood Potassium Venous Blood Potassium Urine Color Yellow Urine Clarity Hazy Urine pH 5.0 Ur Specific [place] 1.025 Urine Protein 2+ H Urine Glucose (UA) Normal Urine Ketones Negative Urine Blood 3+ H Urine Nitrate Negative Urine Bilirubin Negative Urine Urobilinogen Normal Ur Leukocyte Esterase Neg Urine WBC (Auto) 5 Urine RBC (Auto) 11 H Ur Squamous Epith Cells 1 Amorphous Sediment Few H Urine Bacteria Occ H Urine Opiates Screen Positive Urine Methadone Screen Negative Ur Barbiturates Screen Negative Ur Phencyclidine Scrn Negative Ur Amphetamines Screen Negative U Benzodiazepines Scrn Positive U Oth Cocaine Metabols Negative U Cannabinoids Screen Negative 07/02/17 07/02/17 07/02/17 16:33 16:33 17:25 WBC RBC Hgb Hct MCV MCH MCHC RDW Plt Count MPV Neut % (Auto) Lymph % (Auto) [facility] % (Auto) Eos % (Auto) Baso % (Auto) Neut # Lymph # [facility] [place] # Eos # Baso # Neutrophils % (Manual) Band Neutrophils % Lymphocytes % (Manual) Monocytes % (Manual) Metamyelocytes % Nucleated RBC % Platelet Estimate Large Platelets Poikilocytosis (manual Anisocytosis (manual) Ovalocytes PT INR APTT Puncture Site Rba pCO2 84 H* pO2 58 L HCO3 12.3 L ABG pH 6.95 L* ABG Total CO2 21.1 L ABG O2 Saturation 90.1 L ABG Base Excess -15.8 L ABG Hemoglobin 17.1 ABG Carboxyhemoglobin 1.3 POC ABG HHb (Measured) 9.7 H ABG Methemoglobin 0.9 Yaw Test Na ABG Potassium VBG pH VBG pCO2 VBG HCO3 VBG Total CO2 VBG O2 Sat (Calc) VBG Base Excess VBG Potassium A-a O2 Difference 550.0 Respiratory Index 9.5 Hgb O2 Saturation 88.2 L Glucose Lactate Vent Mode Prvc Mechanical Rate 20 FiO2 100.0 Tidal Volume 470 PEEP 14 Crit Value Called To [facility] nurse abel Crit Value Called By Fariha rt Crit Value Read Back Y Blood Gas Notified Time 1729 Sodium 142 Potassium 3.9 Chloride 111 H Carbon Dioxide 21 L Anion Gap 14 BUN 20 H Creatinine 2.5 H Est GFR ( Amer) 23 Est GFR (Non-Af Amer) 19 POC Glucose (mg/dL) Random Glucose 58 L Lactic Acid 3.0 H Calcium 7.3 L Phosphorus 5.6 H Magnesium 1.7 Total Bilirubin 0.9 AST 3894 H ALT 4119 H Alkaline Phosphatase 110 Ammonia Total Creatine Kinase 6070 H CK-MB (Mass) 33.1 H Troponin I Troponin I, Quant 1.9000 H* Total Protein 5.6 L Albumin 3.0 L Globulin 2.6 Albumin/Globulin Ratio 1.1 Arterial Blood Potassium Venous Blood Potassium Urine Color Urine Clarity Urine pH Ur Specific [place] Urine Protein Urine Glucose (UA) Urine Ketones Urine Blood Urine Nitrate Urine Bilirubin Urine Urobilinogen Ur Leukocyte Esterase Urine WBC (Auto) Urine RBC (Auto) Ur Squamous Epith Cells Amorphous Sediment Urine Bacteria Urine Opiates Screen Urine Methadone Screen Ur Barbiturates Screen Ur Phencyclidine Scrn Ur Amphetamines Screen U Benzodiazepines Scrn U Oth Cocaine Metabols U Cannabinoids Screen 07/02/17 07/02/17 07/02/17 20:21 20:26 20:26 WBC 1.0 L* D RBC 5.91 H Hgb 16.2 H Hct 50.4 H MCV 85.2 MCH 27.4 MCHC 32.2 L RDW 15.7 H Plt Count 188 MPV 9.1 Neut % (Auto) 64.8 Lymph % (Auto) 29.6 [facility] % (Auto) 5.4 Eos % (Auto) 0.1 Baso % (Auto) 0.1 Neut # 0.6 L Lymph # 0.[address] # 0.1 Eos # 0.0 Baso # 0.0 Neutrophils % (Manual) 41 L Band Neutrophils % 17 H* Lymphocytes % (Manual) 35 Monocytes % (Manual) 6 Metamyelocytes % 1 H Nucleated RBC % 2 H Platelet Estimate Normal Large Platelets Present Poikilocytosis (manual Slight Anisocytosis (manual) Slight Ovalocytes Slight PT 29.9 H* INR 2.6 APTT 33 Puncture Site pCO2 pO2 25 L HCO3 ABG pH ABG Total CO2 ABG O2 Saturation ABG Base Excess ABG Hemoglobin ABG Carboxyhemoglobin POC ABG HHb (Measured) ABG Methemoglobin Yaw Test ABG Potassium VBG pH 7.06 L* VBG pCO2 90 H* VBG HCO3 17.5 VBG Total CO2 28.3 H VBG O2 Sat (Calc) 48.4 VBG Base Excess -6.9 L VBG Potassium 3.5 L A-a O2 Difference Respiratory Index Hgb O2 Saturation Glucose 52 L Lactate 3.9 H Vent Mode Mechanical Rate FiO2 100.0 Tidal Volume PEEP 18 Crit Value Called To Dr. diop Crit Value Called By Fariha vyas Crit Value Read Back Y Blood Gas Notified Time 2026 Sodium 144.0 Potassium Chloride 109.0 H Carbon Dioxide Anion Gap BUN Creatinine Est GFR ( Amer) Est GFR (Non-Af Amer) POC Glucose (mg/dL) Random Glucose Lactic Acid Calcium Phosphorus Magnesium Total Bilirubin AST ALT Alkaline Phosphatase Ammonia Total Creatine Kinase CK-MB (Mass) Troponin I Troponin I, Quant Total Protein Albumin Globulin Albumin/Globulin Ratio Arterial Blood Potassium Venous Blood Potassium 3.5 L Urine Color Urine Clarity Urine pH Ur Specific [place] Urine Protein Urine Glucose (UA) Urine Ketones Urine Blood Urine Nitrate Urine Bilirubin Urine Urobilinogen Ur Leukocyte Esterase Urine WBC (Auto) Urine RBC (Auto) Ur Squamous Epith Cells Amorphous Sediment Urine Bacteria Urine Opiates Screen Urine Methadone Screen Ur Barbiturates Screen Ur Phencyclidine Scrn Ur Amphetamines Screen U Benzodiazepines Scrn U Oth Cocaine Metabols U Cannabinoids Screen 07/02/17 07/02/17 07/02/17 20:26 20:26 22:36 WBC RBC Hgb Hct MCV MCH MCHC RDW Plt Count MPV Neut % (Auto) Lymph % (Auto) [facility] % (Auto) Eos % (Auto) Baso % (Auto) Neut # Lymph # [facility] # Eos # Baso # Neutrophils % (Manual) Band Neutrophils % Lymphocytes % (Manual) Monocytes % (Manual) Metamyelocytes % Nucleated RBC % Platelet Estimate Large Platelets Poikilocytosis (manual Anisocytosis (manual) Ovalocytes PT INR APTT Puncture Site pCO2 pO2 32 HCO3 ABG pH ABG Total CO2 ABG O2 Saturation ABG Base Excess ABG Hemoglobin ABG Carboxyhemoglobin POC ABG HHb (Measured) ABG Methemoglobin Yaw Test ABG Potassium VBG pH 7.09 L* VBG pCO2 81 H* VBG HCO3 17.8 VBG Total CO2 27.1 VBG O2 Sat (Calc) 65.4 H VBG Base Excess -7.0 L VBG Potassium 3.2 L A-a O2 Difference Respiratory Index Hgb O2 Saturation Glucose 31 L* D Lactate 4.7 H* Vent Mode Mechanical Rate FiO2 100.0 Tidal Volume PEEP 18 Crit Value Called To Dr. diop Crit Value Called By Fariha rt Crit Value Read Back Y Blood Gas Notified Time 2241 Sodium 146 145.0 Potassium 3.5 L Chloride 107 110.0 H Carbon Dioxide 27 Anion Gap 16 BUN 22 H Creatinine 2.8 H Est GFR ( Amer) 21 Est GFR (Non-Af Amer) 17 POC Glucose (mg/dL) Random Glucose 42 L Lactic Acid Calcium 7.3 L Phosphorus 5.3 H Magnesium 1.6 Total Bilirubin 0.9 AST 4880 H ALT 4012 H Alkaline Phosphatase 100 Ammonia 29 Total Creatine Kinase 5456 H CK-MB (Mass) Troponin I Troponin I, Quant Total Protein 5.2 L Albumin 2.8 L Globulin 2.4 Albumin/Globulin Ratio 1.2 Arterial Blood Potassium Venous Blood Potassium 3.2 L Urine Color Urine Clarity Urine pH Ur Specific [place] Urine Protein Urine Glucose (UA) Urine Ketones Urine Blood Urine Nitrate Urine Bilirubin Urine Urobilinogen Ur Leukocyte Esterase Urine WBC (Auto) Urine RBC (Auto) Ur Squamous Epith Cells Amorphous Sediment Urine Bacteria Urine Opiates Screen Urine Methadone Screen Ur Barbiturates Screen Ur Phencyclidine Scrn Ur Amphetamines Screen U Benzodiazepines Scrn U Oth Cocaine Metabols U Cannabinoids Screen 07/02/17 07/02/17 07/03/17 23:03 23:38 00:43 WBC RBC Hgb Hct MCV MCH MCHC RDW Plt Count MPV Neut % (Auto) Lymph % (Auto) [facility] % (Auto) Eos % (Auto) Baso % (Auto) Neut # Lymph # [facility] # Eos # Baso # Neutrophils % (Manual) Band Neutrophils % Lymphocytes % (Manual) Monocytes % (Manual) Metamyelocytes % Nucleated RBC % Platelet Estimate Large Platelets Poikilocytosis (manual Anisocytosis (manual) Ovalocytes PT INR APTT Puncture Site R rad pCO2 60 H pO2 119 H HCO3 18.7 L ABG pH 7.16 L* ABG Total CO2 23.2 ABG O2 Saturation 98.9 H ABG Base Excess -8.0 L ABG Hemoglobin ABG Carboxyhemoglobin POC ABG HHb (Measured) ABG Methemoglobin Yaw Test Pos ABG Potassium 2.9 L VBG pH VBG pCO2 VBG HCO3 VBG Total CO2 VBG O2 Sat (Calc) VBG Base Excess VBG Potassium A-a O2 Difference 519.0 Respiratory Index 4.4 Hgb O2 Saturation Glucose 112 H Lactate 6.1 H* Vent Mode Prvc Mechanical Rate 28 FiO2 100.0 Tidal Volume 450 PEEP 16 Crit Value Called To Dr diop Crit Value Called By Litzy muñoz rt Crit Value Read Back Y Blood Gas Notified Time 115 Sodium 143.0 Potassium Chloride 108.0 H Carbon Dioxide Anion Gap BUN Creatinine Est GFR ( Amer) Est GFR (Non-Af Amer) POC Glucose (mg/dL) < 20 L* 85 Random Glucose Lactic Acid Calcium Phosphorus Magnesium Total Bilirubin AST ALT Alkaline Phosphatase Ammonia Total Creatine Kinase CK-MB (Mass) Troponin I Troponin I, Quant Total Protein Albumin Globulin Albumin/Globulin Ratio Arterial Blood Potassium 2.9 L Venous Blood Potassium Urine Color Urine Clarity Urine pH Ur Specific [place] Urine Protein Urine Glucose (UA) Urine Ketones Urine Blood Urine Nitrate Urine Bilirubin Urine Urobilinogen Ur Leukocyte Esterase Urine WBC (Auto) Urine RBC (Auto) Ur Squamous Epith Cells Amorphous Sediment Urine Bacteria Urine Opiates Screen Urine Methadone Screen Ur Barbiturates Screen Ur Phencyclidine Scrn Ur Amphetamines Screen U Benzodiazepines Scrn U Oth Cocaine Metabols U Cannabinoids Screen 07/03/17 07/03/17 07/03/17 02:49 05:38 06:00 WBC RBC Hgb Hct MCV MCH MCHC RDW Plt Count MPV Neut % (Auto) Lymph % (Auto) [facility] % (Auto) Eos % (Auto) Baso % (Auto) Neut # Lymph # [facility] [place] # Eos # Baso # Neutrophils % (Manual) Band Neutrophils % Lymphocytes % (Manual) Monocytes % (Manual) Metamyelocytes % Nucleated RBC % Platelet Estimate Large Platelets Poikilocytosis (manual Anisocytosis (manual) Ovalocytes PT INR APTT Puncture Site pCO2 pO2 HCO3 ABG pH ABG Total CO2 ABG O2 Saturation ABG Base Excess ABG Hemoglobin ABG Carboxyhemoglobin POC ABG HHb (Measured) ABG Methemoglobin Yaw Test ABG Potassium VBG pH VBG pCO2 VBG HCO3 VBG Total CO2 VBG O2 Sat (Calc) VBG Base Excess VBG Potassium A-a O2 Difference Respiratory Index Hgb O2 Saturation Glucose Lactate Vent Mode Mechanical Rate FiO2 Tidal Volume PEEP Crit Value Called To Crit Value Called By Crit Value Read Back Blood Gas Notified Time Sodium Potassium Chloride Carbon Dioxide Anion Gap BUN Creatinine Est GFR ( Amer) Est GFR (Non-Af Amer) POC Glucose (mg/dL) 95 96 Random Glucose Lactic Acid Calcium Phosphorus Magnesium Total Bilirubin AST ALT Alkaline Phosphatase Ammonia 25 Total Creatine Kinase CK-MB (Mass) Troponin I Troponin I, Quant Total Protein Albumin Globulin Albumin/Globulin Ratio Arterial Blood Potassium Venous Blood Potassium Urine Color Urine Clarity Urine pH Ur Specific [place] Urine Protein Urine Glucose (UA) Urine Ketones Urine Blood Urine Nitrate Urine Bilirubin Urine Urobilinogen Ur Leukocyte Esterase Urine WBC (Auto) Urine RBC (Auto) Ur Squamous Epith Cells Amorphous Sediment Urine Bacteria Urine Opiates Screen Urine Methadone Screen Ur Barbiturates Screen Ur Phencyclidine Scrn Ur Amphetamines Screen U Benzodiazepines Scrn U Oth Cocaine Metabols U Cannabinoids Screen 07/03/17 07/03/17 07/03/17 06:00 06:00 06:00 WBC 3.4 L D RBC 5.50 H Hgb 15.1 Hct 47.0 MCV 85.5 MCH 27.5 MCHC 32.2 L RDW 15.6 H Plt Count 150 MPV 9.9 Neut % (Auto) 82.0 H Lymph % (Auto) 12.[address] % (Auto) 2.5 Eos % (Auto) 2.5 Baso % (Auto) 0.5 Neut # 2.7 Lymph # 0.[address] [place] # 0.1 Eos # 0.1 Baso # 0.0 Neutrophils % (Manual) Band Neutrophils % Lymphocytes % (Manual) Monocytes % (Manual) Metamyelocytes % Nucleated RBC % Platelet Estimate Large Platelets Poikilocytosis (manual Anisocytosis (manual) Ovalocytes PT 30.5 H* INR 2.6 APTT 31 Puncture Site pCO2 pO2 HCO3 ABG pH ABG Total CO2 ABG O2 Saturation ABG Base Excess ABG Hemoglobin ABG Carboxyhemoglobin POC ABG HHb (Measured) ABG Methemoglobin Yaw Test ABG Potassium VBG pH VBG pCO2 VBG HCO3 VBG Total CO2 VBG O2 Sat (Calc) VBG Base Excess VBG Potassium A-a O2 Difference Respiratory Index Hgb O2 Saturation Glucose Lactate Vent Mode Mechanical Rate FiO2 Tidal Volume PEEP Crit Value Called To Crit Value Called By Crit Value Read Back Blood Gas Notified Time Sodium 142 Potassium 2.8 L Chloride 102 Carbon Dioxide 21 L Anion Gap 22 H BUN 27 H Creatinine 3.6 H Est GFR ( Amer) 15 Est GFR (Non-Af Amer) 13 POC Glucose (mg/dL) Random Glucose 94 Lactic Acid Calcium 6.8 L Phosphorus 5.0 H Magnesium 1.4 L Total Bilirubin 1.1 AST 5295 H ALT 4114 H Alkaline Phosphatase 87 Ammonia Total Creatine Kinase 6338 H CK-MB (Mass) 21.5 H Troponin I 4.8600 H* Troponin I, Quant Total Protein 4.9 L Albumin 2.7 L Globulin 2.1 L Albumin/Globulin Ratio 1.3 Arterial Blood Potassium Venous Blood Potassium Urine Color Urine Clarity Urine pH Ur Specific [place] Urine Protein Urine Glucose (UA) Urine Ketones Urine Blood Urine Nitrate Urine Bilirubin Urine Urobilinogen Ur Leukocyte Esterase Urine WBC (Auto) Urine RBC (Auto) Ur Squamous Epith Cells Amorphous Sediment Urine Bacteria Urine Opiates Screen Urine Methadone Screen Ur Barbiturates Screen Ur Phencyclidine Scrn Ur Amphetamines Screen U Benzodiazepines Scrn U Oth Cocaine Metabols U Cannabinoids Screen 07/03/17 08:10 WBC RBC Hgb Hct MCV MCH MCHC RDW Plt Count MPV Neut % (Auto) Lymph % (Auto) [facility] % (Auto) Eos % (Auto) Baso % (Auto) Neut # Lymph # [facility] [place] # Eos # Baso # Neutrophils % (Manual) Band Neutrophils % Lymphocytes % (Manual) Monocytes % (Manual) Metamyelocytes % Nucleated RBC % Platelet Estimate Large Platelets Poikilocytosis (manual Anisocytosis (manual) Ovalocytes PT INR APTT Puncture Site pCO2 pO2 HCO3 ABG pH ABG Total CO2 ABG O2 Saturation ABG Base Excess ABG Hemoglobin ABG Carboxyhemoglobin POC ABG HHb (Measured) ABG Methemoglobin Yaw Test ABG Potassium VBG pH VBG pCO2 VBG HCO3 VBG Total CO2 VBG O2 Sat (Calc) VBG Base Excess VBG Potassium A-a O2 Difference Respiratory Index Hgb O2 Saturation Glucose Lactate Vent Mode Mechanical Rate FiO2 Tidal Volume PEEP Crit Value Called To Crit Value Called By Crit Value Read Back Blood Gas Notified Time Sodium Potassium Chloride Carbon Dioxide Anion Gap BUN Creatinine Est GFR ( Amer) Est GFR (Non-Af Amer) POC Glucose (mg/dL) 70 Random Glucose Lactic Acid Calcium Phosphorus Magnesium Total Bilirubin AST ALT Alkaline Phosphatase Ammonia Total Creatine Kinase CK-MB (Mass) Troponin I Troponin I, Quant Total Protein Albumin Globulin Albumin/Globulin Ratio Arterial Blood Potassium Venous Blood Potassium Urine Color Urine Clarity Urine pH Ur Specific [place] Urine Protein Urine Glucose (UA) Urine Ketones Urine Blood Urine Nitrate Urine Bilirubin Urine Urobilinogen Ur Leukocyte Esterase Urine WBC (Auto) Urine RBC (Auto) Ur Squamous Epith Cells Amorphous Sediment Urine Bacteria Urine Opiates Screen Urine Methadone Screen Ur Barbiturates Screen Ur Phencyclidine Scrn Ur Amphetamines Screen U Benzodiazepines Scrn U Oth Cocaine Metabols U Cannabinoids Screen Assessment & Plan (1) Shock Assessment and Plan: on 4 pressors overall poor prognosis Status: Acute (2) Afib Assessment and Plan: with RVR 2' to shock will check echo Status: Acute (3) Gastrointestinal hemorrhage Assessment and Plan: monitor H&H Status: Acute
--- NOTE | 2017-07-03 08:28 | CP.CCUPN ---
CCU Subjective - Physician Review Subjective (Free Text): Patient seen and examined at bedside with son by her side. Patient intubated on vent, unresponsive to painful stimuli. OGT with bilious output. ROS unobtainable. 07/03/17 13:18 CCU Objective - Vital Signs / Intake & Output Vital Signs (Last 4 hours): Vital Signs Temp Pulse Resp BP Pulse Ox 07/03/17 08:15 120 H 28 H 125/71 98 07/03/17 08:00 96.7 F L 122 H 28 H 110/86 97 07/03/17 07:49 91/40 L 07/03/17 07:48 124 H 28 H 113/83 07/03/17 07:45 123 H 28 H 113/83 91 L 07/03/17 07:34 125 H 28 H 117/95 H 93 L 07/03/17 07:30 126 H 28 H 117/95 H 93 L 07/03/17 07:20 126 H 28 H 89/44 L 94 L 07/03/17 07:15 126 H 28 H 89/44 L 94 L 07/03/17 07:03 124 H 28 H 95/40 L 92 L 07/03/17 07:00 124 H 28 H 95/40 L 94 L 07/03/17 06:48 125 H 28 H 86/41 L 93 L 07/03/17 06:45 125 H 28 H 93 L 07/03/17 06:34 127 H 28 H 116/95 H 07/03/17 06:30 126 H 28 H 73/48 L 07/03/17 06:29 126 H 28 H 77/26 L 07/03/17 06:28 126 H 28 H 70/41 L 07/03/17 06:27 126 H 28 H 91/58 L 78 L 07/03/17 06:26 126 H 28 H 91/72 L 68 L 07/03/17 06:15 126 H 28 H 93 L 07/03/17 06:03 127 H 28 H 91/25 L 92 L 07/03/17 06:00 127 H 28 H 94 L 07/03/17 05:48 127 H 28 H 81/33 L 72 L 07/03/17 05:45 127 H 28 H 51 L 07/03/17 05:34 126 H 28 H 84/19 L 92 L 07/03/17 05:30 127 H 28 H 93 L 07/03/17 05:19 127 H 28 H 105/34 L 74 L 07/03/17 05:15 127 H 28 H 75 L 07/03/17 05:04 131 H 28 H 162/122 H 95 07/03/17 05:00 131 H 28 H 104/51 L 96 07/03/17 04:55 130 H 28 H 55/27 L 96 07/03/17 04:51 128 H 28 H 49/13 L 96 07/03/17 04:48 127 H 28 H 95 07/03/17 04:46 127 H 28 H 45/33 L 96 07/03/17 04:45 127 H 28 H 95 07/03/17 04:33 127 H 28 H 60/37 L 95 07/03/17 04:30 126 H 28 H 96 Intake and Output (Last 8hrs): Intake & Output 07/02/17 07/03/17 07/03/17 22:59 06:59 14:59 Intake Total 1753.7 2511.0 462.5 Output Total 300 475 0 Balance 1453.7 2036.0 462.5 Intake: IV 326 511 150 Intake, IV Amount 1427.7 2000.0 312.5 Left Forearm 40 80 10 Right Antecubital 300 100 50 Right Distal Port Femoral 287.7 300.0 37.5 Right Medial Port Femoral 35 40 5 Right Proximal Port 630 1200 150 Femoral Y port Distal TLC 135 280 60 Oral 0 0 Output: Gastric Amount 150 450 Stomach 150 450 Urine 150 25 0 Urethral (Rick) 150 25 0 - Physical Exam Head: Positive for: Atraumatic, Normocephalic Pupils: Positive for: Sluggish Mouth: Positive for: Other (ETT, OGT with bilious outpt) Respiratory/Chest: Positive for: Wheezes, Rhonchi. Negative for: Clear to Auscultation Cardiovascular: Positive for: Regular Rate and Rhythm, Normal S1, S2 Lower Extremity: Positive for: Edema Neurological: Negative for: GCS=15 Skin: Positive for: Cold. Negative for: Warm Psychiatric: Negative for: Alert, Oriented x 3 - Medications Active Medications: Active Medications Generic Name Dose Route Start Last Admin Trade Name Freq PRN Reason Stop Dose Admin Albuterol/Ipratropium 3 ml 07/03/17 02:00 Duoneb 3 Mg/0.5 Mg (3 Ml) Ud INH RQ6 STEPHANE Budesonide 0.5 mg 07/03/17 00:08 Pulmicort Respules INH RQ12 STEPHANE Octreotide Acetate 1,250 mcg/ 252.5 mls @ 5.05 mls/hr 07/02/17 11:34 13:05 Dextrose IV 07/03/17 11:33 5.05 mls/hr .Q24H STA Administration Protocol 25 MCG/HR Pantoprazole Sodium 80 mg/ 100 mls @ 10 mls/hr 07/02/17 12:00 07/03/17 07:05 Sodium Chloride IVPB 10 mls/hr .Q10H STEPHANE Administration 8 MG/HR Phenylephrine HCl 30 mg/ 253 mls @ 50.6 mls/hr 07/02/17 11:46 07/03/17 07:04 Sodium Chloride IV 118.57 mcg/min .Q5H PRN 60 mls/hr TITRATE PER MD ORDER Titration Protocol 100 MCG/MIN Norepinephrine Bitartrate 8 mg 258 mls @ 7.74 mls/hr 07/02/17 15:20 07/03/17 07:49 / Sodium Chloride IV 19.37 mcg/min .Q24H PRN 37.48 mls/hr TITRATE PER MD ORDER Administration Protocol 4 MCG/MIN Piperacillin Sod/Tazobactam Sod 2.25 gm in 50 mls @ 100 mls/hr 07/02/17 15:30 07/03/17 07:11 Zosyn 2.25 Gm Iv Premix IVPB 100 mls/hr Q8H STEPHANE Administration Sodium Bicarbonate 150 meq/ 1,150 mls @ 150 mls/hr 07/02/17 23:00 07/03/17 07 :46 Dextrose IV 150 mls/hr .Q7H40M STEPHANE Administration Magnesium Sulfate/Dextrose 1 gm in 100 mls @ 200 mls/hr 07/03/17 07:30 07:45 Magnesium Sulfate 1 Gm/100 Ml D5w IVPB 07/03/17 08:29 200 mls/hr Q30M STEPHANE Administration Potassium Chloride 20 meq in 100 mls @ 50 mls/hr 07/03/17 07:28 07/03/17 07: 46 Potassium Chloride 20 Meq/100 Ml IVPB 07/03/17 09:27 50 mls/hr ONCE ONE Administration Potassium Chloride 20 meq in 100 mls @ 50 mls/hr 07/03/17 09:30 Potassium Chloride 20 Meq/100 Ml IVPB 07/03/17 11:29 ONCE ONE Influenza Virus Vaccine 45 mcg 07/05/17 10:00 Afluria IM 07/05/17 10:01 .ONCE ONE Pneumococcal Polyvalent Vaccine 0.5 ml 07/05/17 10:00 Pneumovax 23 Vaccine IM 07/05/17 10:01 .ONCE ONE - Patient Studies Lab Studies: Lab Studies 07/03/17 07/03/17 07/03/17 Range/Units 08:10 06:00 06:00 WBC (4.8-10.8) K/uL RBC (3.80-5.20) Mil/uL Hgb (11.0-16.0) g/dL Hct (34.0-47.0) % MCV (81.0-99.0) fL MCH (27.0-31.0) pg MCHC (33.0-37.0) g/dL RDW (11.5-14.5) % Plt Count (130-400) K/uL MPV (7.2-11.7) fL Neut % (Auto) (50.0-75.0) % Lymph % (Auto) (20.0-40.0) % Yell % (Auto) (0.0-10.0) % Eos % (Auto) (0.0-4.0) % Baso % (Auto) (0.0-2.0) % Neut # (1.8-7.0) K/uL Lymph # (1.0-4.3) K/uL Yell # (0.0-0.8) K/uL Eos # (0.0-0.7) K/uL Baso # (0.0-0.2) K/uL Neutrophils % (Manual) (50-75) % Band Neutrophils % (0-2) % Lymphocytes % (Manual) (20-40) % Monocytes % (Manual) (0-10) % Metamyelocytes % (0-0) % Nucleated RBC % (0-0) % Platelet Estimate (NORMAL) Large Platelets Poikilocytosis (manual Anisocytosis (manual) Ovalocytes PT 30.5 H* (9.7-12.2) SECONDS INR 2.6 APTT 31 (21-34) SECONDS Puncture Site pCO2 (35-45) mm/Hg pO2 (80-100) mm/Hg HCO3 (21-28) mmol/L ABG pH (7.35-7.45) ABG Total CO2 (22-28) mmol/L ABG O2 Saturation (95-98) % ABG Base Excess (-2.0-3.0) mmol/L ABG Hemoglobin (11.7-17.4) g/dL ABG Carboxyhemoglobin (0.5-1.5) % POC ABG HHb (Measured) (0.0-5.0) % ABG Methemoglobin (0.0-3.0) % Yaw Test ABG Potassium (3.6-5.2) mmol/L VBG pH (7.32-7.43) VBG pCO2 (40-60) mmHg VBG HCO3 mmol/L VBG Total CO2 (22-28) mmol/L VBG O2 Sat (Calc) (40-65) % VBG Base Excess (0.0-2.0) mmol/L VBG Potassium (3.6-5.2) mmol/L A-a O2 Difference mm/Hg Respiratory Index Hgb O2 Saturation (95.0-98.0) % Glucose (65-105) mg/dl Lactate (0.7-2.1) mmol/L Vent Mode Mechanical Rate FiO2 % Tidal Volume PEEP Crit Value Called To Crit Value Called By Crit Value Read Back Blood Gas Notified Time Sodium 142 (132-148) mmol/L Potassium 2.8 L (3.6-5.2) mmol/L Chloride 102 (98-107) mmol/L Carbon Dioxide 21 L (22-30) mmol/L Anion Gap 22 H (10-20) BUN 27 H (7-17) mg/dL Creatinine 3.6 H (0.7-1.2) MG/DL Est GFR ( Amer) 15 Est GFR (Non-Af Amer) 13 POC Glucose (mg/dL) 70 (65-110) mg/dL Random Glucose 94 (65-105) mg/dL Lactic Acid (0.7-2.1) mmol/L Calcium 6.8 L (8.6-10.4) mg/dl Phosphorus 5.0 H (2.5-4.5) mg/dL Magnesium 1.4 L (1.6-2.3) mg/dL Total Bilirubin 1.1 (0.2-1.3) mg/dL AST 5295 H (14-36) U/L ALT 4114 H (9-52) U/L Alkaline Phosphatase 87 (38-126) U/L Ammonia (9-33) umol/L Total Creatine Kinase 6338 H (30-135) U/L CK-MB (Mass) 21.5 H (0.0-3.38) ng/mL Troponin I 4.8600 H* (0.00-0.120) ng/mL Troponin I, Quant (0.00-0.120) ng/mL Total Protein 4.9 L (6.3-8.3) g/dL Albumin 2.7 L (3.5-5.0) g/dL Globulin 2.1 L (2.2-3.9) gm/dL Albumin/Globulin Ratio 1.3 (1.0-2.1) Arterial Blood Potassium (3.6-5.2) mmol/L Venous Blood Potassium (3.6-5.2) mmol/L Urine Color (YELLOW) Urine Clarity (Clear) Urine pH (5.0-8.0) Ur Specific [place] (1.003-1.030) Urine Protein (NEGATIVE) mg/dL Urine Glucose (UA) (Normal) mg/dL Urine Ketones (NEGATIVE) mg/dL Urine Blood (NEGATIVE) Urine Nitrate (NEGATIVE) Urine Bilirubin (NEGATIVE) Urine Urobilinogen (0.2-1.0) mg/dL Ur Leukocyte Esterase (Negative) Kit/uL Urine WBC (Auto) (0-5) /hpf Urine RBC (Auto) (0-3) /hpf Ur Squamous Epith Cells (0-5) /hpf Amorphous Sediment (<OCC) /ul Urine Bacteria (<OCC) Urine Opiates Screen (NEGATIVE) Urine Methadone Screen (NEGATIVE) Ur Barbiturates Screen (NEGATIVE) Ur Phencyclidine Scrn (NEGATIVE) Ur Amphetamines Screen (NEGATIVE) U Benzodiazepines Scrn (NEGATIVE) U Oth Cocaine Metabols (NEGATIVE) U Cannabinoids Screen (NEGATIVE) 07/03/17 07/03/17 07/03/17 Range/Units 06:00 06:00 05:38 WBC 3.4 L D (4.8-10.8) K/uL RBC 5.50 H (3.80-5.20) Mil/uL Hgb 15.1 (11.0-16.0) g/dL Hct 47.0 (34.0-47.0) % MCV 85.5 (81.0-99.0) fL MCH 27.5 (27.0-31.0) pg MCHC 32.2 L (33.0-37.0) g/dL RDW 15.6 H (11.5-14.5) % Plt Count 150 (130-400) K/uL MPV 9.9 (7.2-11.7) fL Neut % (Auto) 82.0 H (50.0-75.0) % Lymph % (Auto) 12.5 L (20.0-40.0) % Yell % (Auto) 2.5 (0.0-10.0) % Eos % (Auto) 2.5 (0.0-4.0) % Baso % (Auto) 0.5 (0.0-2.0) % Neut # 2.7 (1.8-7.0) K/uL Lymph # 0.4 L (1.0-4.3) K/uL Yell # 0.1 (0.0-0.8) K/uL Eos # 0.1 (0.0-0.7) K/uL Baso # 0.0 (0.0-0.2) K/uL Neutrophils % (Manual) (50-75) % Band Neutrophils % (0-2) % Lymphocytes % (Manual) (20-40) % Monocytes % (Manual) (0-10) % Metamyelocytes % (0-0) % Nucleated RBC % (0-0) % Platelet Estimate (NORMAL) Large Platelets Poikilocytosis (manual Anisocytosis (manual) Ovalocytes PT (9.7-12.2) SECONDS INR APTT (21-34) SECONDS Puncture Site pCO2 (35-45) mm/Hg pO2 (80-100) mm/Hg HCO3 (21-28) mmol/L ABG pH (7.35-7.45) ABG Total CO2 (22-28) mmol/L ABG O2 Saturation (95-98) % ABG Base Excess (-2.0-3.0) mmol/L ABG Hemoglobin (11.7-17.4) g/dL ABG Carboxyhemoglobin (0.5-1.5) % POC ABG HHb (Measured) (0.0-5.0) % ABG Methemoglobin (0.0-3.0) % Yaw Test ABG Potassium (3.6-5.2) mmol/L VBG pH (7.32-7.43) VBG pCO2 (40-60) mmHg VBG HCO3 mmol/L VBG Total CO2 (22-28) mmol/L VBG O2 Sat (Calc) (40-65) % VBG Base Excess (0.0-2.0) mmol/L VBG Potassium (3.6-5.2) mmol/L A-a O2 Difference mm/Hg Respiratory Index Hgb O2 Saturation (95.0-98.0) % Glucose (65-105) mg/dl Lactate (0.7-2.1) mmol/L Vent Mode Mechanical Rate FiO2 % Tidal Volume PEEP Crit Value Called To Crit Value Called By Crit Value Read Back Blood Gas Notified Time Sodium (132-148) mmol/L Potassium (3.6-5.2) mmol/L Chloride (98-107) mmol/L Carbon Dioxide (22-30) mmol/L Anion Gap (10-20) BUN (7-17) mg/dL Creatinine (0.7-1.2) MG/DL Est GFR ( Amer) Est GFR (Non-Af Amer) POC Glucose (mg/dL) 96 (65-110) mg/dL Random Glucose (65-105) mg/dL Lactic Acid (0.7-2.1) mmol/L Calcium (8.6-10.4) mg/dl Phosphorus (2.5-4.5) mg/dL Magnesium (1.6-2.3) mg/dL Total Bilirubin (0.2-1.3) mg/dL AST (14-36) U/L ALT (9-52) U/L Alkaline Phosphatase (38-126) U/L Ammonia 25 (9-33) umol/L Total Creatine Kinase (30-135) U/L CK-MB (Mass) (0.0-3.38) ng/mL Troponin I (0.00-0.120) ng/mL Troponin I, Quant (0.00-0.120) ng/mL Total Protein (6.3-8.3) g/dL Albumin (3.5-5.0) g/dL Globulin (2.2-3.9) gm/dL Albumin/Globulin Ratio (1.0-2.1) Arterial Blood Potassium (3.6-5.2) mmol/L Venous Blood Potassium (3.6-5.2) mmol/L Urine Color (YELLOW) Urine Clarity (Clear) Urine pH (5.0-8.0) Ur Specific [place] (1.003-1.030) Urine Protein (NEGATIVE) mg/dL Urine Glucose (UA) (Normal) mg/dL Urine Ketones (NEGATIVE) mg/dL Urine Blood (NEGATIVE) Urine Nitrate (NEGATIVE) Urine Bilirubin (NEGATIVE) Urine Urobilinogen (0.2-1.0) mg/dL Ur Leukocyte Esterase (Negative) Kit/uL Urine WBC (Auto) (0-5) /hpf Urine RBC (Auto) (0-3) /hpf Ur Squamous Epith Cells (0-5) /hpf Amorphous Sediment (<OCC) /ul Urine Bacteria (<OCC) Urine Opiates Screen (NEGATIVE) Urine Methadone Screen (NEGATIVE) Ur Barbiturates Screen (NEGATIVE) Ur Phencyclidine Scrn (NEGATIVE) Ur Amphetamines Screen (NEGATIVE) U Benzodiazepines Scrn (NEGATIVE) U Oth Cocaine Metabols (NEGATIVE) U Cannabinoids Screen (NEGATIVE) 07/03/17 07/03/17 07/02/17 Range/Units 02:49 00:43 23:38 WBC (4.8-10.8) K/uL RBC (3.80-5.20) Mil/uL Hgb (11.0-16.0) g/dL Hct (34.0-47.0) % MCV (81.0-99.0) fL MCH (27.0-31.0) pg MCHC (33.0-37.0) g/dL RDW (11.5-14.5) % Plt Count (130-400) K/uL MPV (7.2-11.7) fL Neut % (Auto) (50.0-75.0) % Lymph % (Auto) (20.0-40.0) % Yell % (Auto) (0.0-10.0) % Eos % (Auto) (0.0-4.0) % Baso % (Auto) (0.0-2.0) % Neut # (1.8-7.0) K/uL Lymph # (1.0-4.3) K/uL Yell # (0.0-0.8) K/uL Eos # (0.0-0.7) K/uL Baso # (0.0-0.2) K/uL Neutrophils % (Manual) (50-75) % Band Neutrophils % (0-2) % Lymphocytes % (Manual) (20-40) % Monocytes % (Manual) (0-10) % Metamyelocytes % (0-0) % Nucleated RBC % (0-0) % Platelet Estimate (NORMAL) Large Platelets Poikilocytosis (manual Anisocytosis (manual) Ovalocytes PT (9.7-12.2) SECONDS INR APTT (21-34) SECONDS Puncture Site R rad pCO2 60 H (35-45) mm/Hg pO2 119 H (80-100) mm/Hg HCO3 18.7 L (21-28) mmol/L ABG pH 7.16 L* (7.35-7.45) ABG Total CO2 23.2 (22-28) mmol/L ABG O2 Saturation 98.9 H (95-98) % ABG Base Excess -8.0 L (-2.0-3.0) mmol/L ABG Hemoglobin (11.7-17.4) g/dL ABG Carboxyhemoglobin (0.5-1.5) % POC ABG HHb (Measured) (0.0-5.0) % ABG Methemoglobin (0.0-3.0) % Yaw Test Pos ABG Potassium 2.9 L (3.6-5.2) mmol/L VBG pH (7.32-7.43) VBG pCO2 (40-60) mmHg VBG HCO3 mmol/L VBG Total CO2 (22-28) mmol/L VBG O2 Sat (Calc) (40-65) % VBG Base Excess (0.0-2.0) mmol/L VBG Potassium (3.6-5.2) mmol/L A-a O2 Difference 519.0 mm/Hg Respiratory Index 4.4 Hgb O2 Saturation (95.0-98.0) % Glucose 112 H (65-105) mg/dl Lactate 6.1 H* (0.7-2.1) mmol/L Vent Mode Prvc Mechanical Rate 28 FiO2 100.0 % Tidal Volume 450 PEEP 16 Crit Value Called To Dr diop Crit Value Called By Litzy muñoz rt Crit Value Read Back Y Blood Gas Notified Time 115 Sodium 143.0 (132-148) mmol/L Potassium (3.6-5.2) mmol/L Chloride 108.0 H (98-107) mmol/L Carbon Dioxide (22-30) mmol/L Anion Gap (10-20) BUN (7-17) mg/dL Creatinine (0.7-1.2) MG/DL Est GFR ( Amer) Est GFR (Non-Af Amer) POC Glucose (mg/dL) 95 85 (65-110) mg/dL Random Glucose (65-105) mg/dL Lactic Acid (0.7-2.1) mmol/L Calcium (8.6-10.4) mg/dl Phosphorus (2.5-4.5) mg/dL Magnesium (1.6-2.3) mg/dL Total Bilirubin (0.2-1.3) mg/dL AST (14-36) U/L ALT (9-52) U/L Alkaline Phosphatase (38-126) U/L Ammonia (9-33) umol/L Total Creatine Kinase (30-135) U/L CK-MB (Mass) (0.0-3.38) ng/mL Troponin I (0.00-0.120) ng/mL Troponin I, Quant (0.00-0.120) ng/mL Total Protein (6.3-8.3) g/dL Albumin (3.5-5.0) g/dL Globulin (2.2-3.9) gm/dL Albumin/Globulin Ratio (1.0-2.1) Arterial Blood Potassium 2.9 L (3.6-5.2) mmol/L Venous Blood Potassium (3.6-5.2) mmol/L Urine Color (YELLOW) Urine Clarity (Clear) Urine pH (5.0-8.0) Ur Specific [place] (1.003-1.030) Urine Protein (NEGATIVE) mg/dL Urine Glucose (UA) (Normal) mg/dL Urine Ketones (NEGATIVE) mg/dL Urine Blood (NEGATIVE) Urine Nitrate (NEGATIVE) Urine Bilirubin (NEGATIVE) Urine Urobilinogen (0.2-1.0) mg/dL Ur Leukocyte Esterase (Negative) Kit/uL Urine WBC (Auto) (0-5) /hpf Urine RBC (Auto) (0-3) /hpf Ur Squamous Epith Cells (0-5) /hpf Amorphous Sediment (<OCC) /ul Urine Bacteria (<OCC) Urine Opiates Screen (NEGATIVE) Urine Methadone Screen (NEGATIVE) Ur Barbiturates Screen (NEGATIVE) Ur Phencyclidine Scrn (NEGATIVE) Ur Amphetamines Screen (NEGATIVE) U Benzodiazepines Scrn (NEGATIVE) U Oth Cocaine Metabols (NEGATIVE) U Cannabinoids Screen (NEGATIVE) 07/02/17 07/02/17 07/02/17 Range/Units 23:03 22:36 20:26 WBC (4.8-10.8) K/uL RBC (3.80-5.20) Mil/uL Hgb (11.0-16.0) g/dL Hct (34.0-47.0) % MCV (81.0-99.0) fL MCH (27.0-31.0) pg MCHC (33.0-37.0) g/dL RDW (11.5-14.5) % Plt Count (130-400) K/uL MPV (7.2-11.7) fL Neut % (Auto) (50.0-75.0) % Lymph % (Auto) (20.0-40.0) % Yell % (Auto) (0.0-10.0) % Eos % (Auto) (0.0-4.0) % Baso % (Auto) (0.0-2.0) % Neut # (1.8-7.0) K/uL Lymph # (1.0-4.3) K/uL Yell # (0.0-0.8) K/uL Eos # (0.0-0.7) K/uL Baso # (0.0-0.2) K/uL Neutrophils % (Manual) (50-75) % Band Neutrophils % (0-2) % Lymphocytes % (Manual) (20-40) % Monocytes % (Manual) (0-10) % Metamyelocytes % (0-0) % Nucleated RBC % (0-0) % Platelet Estimate (NORMAL) Large Platelets Poikilocytosis (manual Anisocytosis (manual) Ovalocytes PT (9.7-12.2) SECONDS INR APTT (21-34) SECONDS Puncture Site pCO2 (35-45) mm/Hg pO2 32 (80-100) mm/Hg HCO3 (21-28) mmol/L ABG pH (7.35-7.45) ABG Total CO2 (22-28) mmol/L ABG O2 Saturation (95-98) % ABG Base Excess (-2.0-3.0) mmol/L ABG Hemoglobin (11.7-17.4) g/dL ABG Carboxyhemoglobin (0.5-1.5) % POC ABG HHb (Measured) (0.0-5.0) % ABG Methemoglobin (0.0-3.0) % Yaw Test ABG Potassium (3.6-5.2) mmol/L VBG pH 7.09 L* (7.32-7.43) VBG pCO2 81 H* (40-60) mmHg VBG HCO3 17.8 mmol/L VBG Total CO2 27.1 (22-28) mmol/L VBG O2 Sat (Calc) 65.4 H (40-65) % VBG Base Excess -7.0 L (0.0-2.0) mmol/L VBG Potassium 3.2 L (3.6-5.2) mmol/L A-a O2 Difference mm/Hg Respiratory Index Hgb O2 Saturation (95.0-98.0) % Glucose 31 L* D (65-105) mg/dl Lactate 4.7 H* (0.7-2.1) mmol/L Vent Mode Mechanical Rate FiO2 100.0 % Tidal Volume PEEP 18 Crit Value Called To Dr. diop Crit Value Called By Fariha vyas Crit Value Read Back Y Blood Gas Notified Time 2242 Sodium 145.0 (132-148) mmol/L Potassium (3.6-5.2) mmol/L Chloride 110.0 H (98-107) mmol/L Carbon Dioxide (22-30) mmol/L Anion Gap (10-20) BUN (7-17) mg/dL Creatinine (0.7-1.2) MG/DL Est GFR ( Amer) Est GFR (Non-Af Amer) POC Glucose (mg/dL) < 20 L* (65-110) mg/dL Random Glucose (65-105) mg/dL Lactic Acid (0.7-2.1) mmol/L Calcium (8.6-10.4) mg/dl Phosphorus (2.5-4.5) mg/dL Magnesium (1.6-2.3) mg/dL Total Bilirubin (0.2-1.3) mg/dL AST (14-36) U/L ALT (9-52) U/L Alkaline Phosphatase (38-126) U/L Ammonia 29 (9-33) umol/L Total Creatine Kinase (30-135) U/L CK-MB (Mass) (0.0-3.38) ng/mL Troponin I (0.00-0.120) ng/mL Troponin I, Quant (0.00-0.120) ng/mL Total Protein (6.3-8.3) g/dL Albumin (3.5-5.0) g/dL Globulin (2.2-3.9) gm/dL Albumin/Globulin Ratio (1.0-2.1) Arterial Blood Potassium (3.6-5.2) mmol/L Venous Blood Potassium 3.2 L (3.6-5.2) mmol/L Urine Color (YELLOW) Urine Clarity (Clear) Urine pH (5.0-8.0) Ur Specific [place] (1.003-1.030) Urine Protein (NEGATIVE) mg/dL Urine Glucose (UA) (Normal) mg/dL Urine Ketones (NEGATIVE) mg/dL Urine Blood (NEGATIVE) Urine Nitrate (NEGATIVE) Urine Bilirubin (NEGATIVE) Urine Urobilinogen (0.2-1.0) mg/dL Ur Leukocyte Esterase (Negative) Kit/uL Urine WBC (Auto) (0-5) /hpf Urine RBC (Auto) (0-3) /hpf Ur Squamous Epith Cells (0-5) /hpf Amorphous Sediment (<OCC) /ul Urine Bacteria (<OCC) Urine Opiates Screen (NEGATIVE) Urine Methadone Screen (NEGATIVE) Ur Barbiturates Screen (NEGATIVE) Ur Phencyclidine Scrn (NEGATIVE) Ur Amphetamines Screen (NEGATIVE) U Benzodiazepines Scrn (NEGATIVE) U Oth Cocaine Metabols (NEGATIVE) U Cannabinoids Screen (NEGATIVE) 07/02/17 07/02/17 07/02/17 Range/Units 20:26 20:26 20:26 WBC 1.0 L* D (4.8-10.8) K/uL RBC 5.91 H (3.80-5.20) Mil/uL Hgb 16.2 H (11.0-16.0) g/dL Hct 50.4 H (34.0-47.0) % MCV 85.2 (81.0-99.0) fL MCH 27.4 (27.0-31.0) pg MCHC 32.2 L (33.0-37.0) g/dL RDW 15.7 H (11.5-14.5) % Plt Count 188 (130-400) K/uL MPV 9.1 (7.2-11.7) fL Neut % (Auto) 64.8 (50.0-75.0) % Lymph % (Auto) 29.6 (20.0-40.0) % Yell % (Auto) 5.4 (0.0-10.0) % Eos % (Auto) 0.1 (0.0-4.0) % Baso % (Auto) 0.1 (0.0-2.0) % Neut # 0.6 L (1.8-7.0) K/uL Lymph # 0.3 L (1.0-4.3) K/uL Yell # 0.1 (0.0-0.8) K/uL Eos # 0.0 (0.0-0.7) K/uL Baso # 0.0 (0.0-0.2) K/uL Neutrophils % (Manual) 41 L (50-75) % Band Neutrophils % 17 H* (0-2) % Lymphocytes % (Manual) 35 (20-40) % Monocytes % (Manual) 6 (0-10) % Metamyelocytes % 1 H (0-0) % Nucleated RBC % 2 H (0-0) % Platelet Estimate Normal (NORMAL) Large Platelets Present Poikilocytosis (manual Slight Anisocytosis (manual) Slight Ovalocytes Slight PT 29.9 H* (9.7-12.2) SECONDS INR 2.6 APTT 33 (21-34) SECONDS Puncture Site pCO2 (35-45) mm/Hg pO2 (80-100) mm/Hg HCO3 (21-28) mmol/L ABG pH (7.35-7.45) ABG Total CO2 (22-28) mmol/L ABG O2 Saturation (95-98) % ABG Base Excess (-2.0-3.0) mmol/L ABG Hemoglobin (11.7-17.4) g/dL ABG Carboxyhemoglobin (0.5-1.5) % POC ABG HHb (Measured) (0.0-5.0) % ABG Methemoglobin (0.0-3.0) % Yaw Test ABG Potassium (3.6-5.2) mmol/L VBG pH (7.32-7.43) VBG pCO2 (40-60) mmHg VBG HCO3 mmol/L VBG Total CO2 (22-28) mmol/L VBG O2 Sat (Calc) (40-65) % VBG Base Excess (0.0-2.0) mmol/L VBG Potassium (3.6-5.2) mmol/L A-a O2 Difference mm/Hg Respiratory Index Hgb O2 Saturation (95.0-98.0) % Glucose (65-105) mg/dl Lactate (0.7-2.1) mmol/L Vent Mode Mechanical Rate FiO2 % Tidal Volume PEEP Crit Value Called To Crit Value Called By Crit Value Read Back Blood Gas Notified Time Sodium 146 (132-148) mmol/L Potassium 3.5 L (3.6-5.2) mmol/L Chloride 107 (98-107) mmol/L Carbon Dioxide 27 (22-30) mmol/L Anion Gap 16 (10-20) BUN 22 H (7-17) mg/dL Creatinine 2.8 H (0.7-1.2) MG/DL Est GFR ( Amer) 21 Est GFR (Non-Af Amer) 17 POC Glucose (mg/dL) (65-110) mg/dL Random Glucose 42 L (65-105) mg/dL Lactic Acid (0.7-2.1) mmol/L Calcium 7.3 L (8.6-10.4) mg/dl Phosphorus 5.3 H (2.5-4.5) mg/dL Magnesium 1.6 (1.6-2.3) mg/dL Total Bilirubin 0.9 (0.2-1.3) mg/dL AST 4880 H (14-36) U/L ALT 4012 H (9-52) U/L Alkaline Phosphatase 100 (38-126) U/L Ammonia (9-33) umol/L Total Creatine Kinase 5456 H (30-135) U/L CK-MB (Mass) (0.0-3.38) ng/mL Troponin I (0.00-0.120) ng/mL Troponin I, Quant (0.00-0.120) ng/mL Total Protein 5.2 L (6.3-8.3) g/dL Albumin 2.8 L (3.5-5.0) g/dL Globulin 2.4 (2.2-3.9) gm/dL Albumin/Globulin Ratio 1.2 (1.0-2.1) Arterial Blood Potassium (3.6-5.2) mmol/L Venous Blood Potassium (3.6-5.2) mmol/L Urine Color (YELLOW) Urine Clarity (Clear) Urine pH (5.0-8.0) Ur Specific [place] (1.003-1.030) Urine Protein (NEGATIVE) mg/dL Urine Glucose (UA) (Normal) mg/dL Urine Ketones (NEGATIVE) mg/dL Urine Blood (NEGATIVE) Urine Nitrate (NEGATIVE) Urine Bilirubin (NEGATIVE) Urine Urobilinogen (0.2-1.0) mg/dL Ur Leukocyte Esterase (Negative) Kit/uL Urine WBC (Auto) (0-5) /hpf Urine RBC (Auto) (0-3) /hpf Ur Squamous Epith Cells (0-5) /hpf Amorphous Sediment (<OCC) /ul Urine Bacteria (<OCC) Urine Opiates Screen (NEGATIVE) Urine Methadone Screen (NEGATIVE) Ur Barbiturates Screen (NEGATIVE) Ur Phencyclidine Scrn (NEGATIVE) Ur Amphetamines Screen (NEGATIVE) U Benzodiazepines Scrn (NEGATIVE) U Oth Cocaine Metabols (NEGATIVE) U Cannabinoids Screen (NEGATIVE) 07/02/17 07/02/17 07/02/17 Range/Units 20:21 17:25 16:33 WBC (4.8-10.8) K/uL RBC (3.80-5.20) Mil/uL Hgb (11.0-16.0) g/dL Hct (34.0-47.0) % MCV (81.0-99.0) fL MCH (27.0-31.0) pg MCHC (33.0-37.0) g/dL RDW (11.5-14.5) % Plt Count (130-400) K/uL MPV (7.2-11.7) fL Neut % (Auto) (50.0-75.0) % Lymph % (Auto) (20.0-40.0) % Yell % (Auto) (0.0-10.0) % Eos % (Auto) (0.0-4.0) % Baso % (Auto) (0.0-2.0) % Neut # (1.8-7.0) K/uL Lymph # (1.0-4.3) K/uL Yell # (0.0-0.8) K/uL Eos # (0.0-0.7) K/uL Baso # (0.0-0.2) K/uL Neutrophils % (Manual) (50-75) % Band Neutrophils % (0-2) % Lymphocytes % (Manual) (20-40) % Monocytes % (Manual) (0-10) % Metamyelocytes % (0-0) % Nucleated RBC % (0-0) % Platelet Estimate (NORMAL) Large Platelets Poikilocytosis (manual Anisocytosis (manual) Ovalocytes PT (9.7-12.2) SECONDS INR APTT (21-34) SECONDS Puncture Site Rba pCO2 84 H* (35-45) mm/Hg pO2 25 L 58 L (80-100) mm/Hg HCO3 12.3 L (21-28) mmol/L ABG pH 6.95 L* (7.35-7.45) ABG Total CO2 21.1 L (22-28) mmol/L ABG O2 Saturation 90.1 L (95-98) % ABG Base Excess -15.8 L (-2.0-3.0) mmol/L ABG Hemoglobin 17.1 (11.7-17.4) g/dL ABG Carboxyhemoglobin 1.3 (0.5-1.5) % POC ABG HHb (Measured) 9.7 H (0.0-5.0) % ABG Methemoglobin 0.9 (0.0-3.0) % Yaw Test Na ABG Potassium (3.6-5.2) mmol/L VBG pH 7.06 L* (7.32-7.43) VBG pCO2 90 H* (40-60) mmHg VBG HCO3 17.5 mmol/L VBG Total CO2 28.3 H (22-28) mmol/L VBG O2 Sat (Calc) 48.4 (40-65) % VBG Base Excess -6.9 L (0.0-2.0) mmol/L VBG Potassium 3.5 L (3.6-5.2) mmol/L A-a O2 Difference 550.0 mm/Hg Respiratory Index 9.5 Hgb O2 Saturation 88.2 L (95.0-98.0) % Glucose 52 L (65-105) mg/dl Lactate 3.9 H (0.7-2.1) mmol/L Vent Mode Prvc Mechanical Rate 20 FiO2 100.0 100.0 % Tidal Volume 470 PEEP 18 14 Crit Value Called To Dr. diop [facility] nurse abel Crit Value Called By Fariha Fried rt Crit Value Read Back Y Y Blood Gas Notified Time 2026 1728 Sodium 144.0 (132-148) mmol/L Potassium (3.6-5.2) mmol/L Chloride 109.0 H (98-107) mmol/L Carbon Dioxide (22-30) mmol/L Anion Gap (10-20) BUN (7-17) mg/dL Creatinine (0.7-1.2) MG/DL Est GFR ( Amer) Est GFR (Non-Af Amer) POC Glucose (mg/dL) (65-110) mg/dL Random Glucose (65-105) mg/dL Lactic Acid 3.0 H (0.7-2.1) mmol/L Calcium (8.6-10.4) mg/dl Phosphorus (2.5-4.5) mg/dL Magnesium (1.6-2.3) mg/dL Total Bilirubin (0.2-1.3) mg/dL AST (14-36) U/L ALT (9-52) U/L Alkaline Phosphatase (38-126) U/L Ammonia (9-33) umol/L Total Creatine Kinase (30-135) U/L CK-MB (Mass) (0.0-3.38) ng/mL Troponin I (0.00-0.120) ng/mL Troponin I, Quant (0.00-0.120) ng/mL Total Protein (6.3-8.3) g/dL Albumin (3.5-5.0) g/dL Globulin (2.2-3.9) gm/dL Albumin/Globulin Ratio (1.0-2.1) Arterial Blood Potassium (3.6-5.2) mmol/L Venous Blood Potassium 3.5 L (3.6-5.2) mmol/L Urine Color (YELLOW) Urine Clarity (Clear) Urine pH (5.0-8.0) Ur Specific [place] (1.003-1.030) Urine Protein (NEGATIVE) mg/dL Urine Glucose (UA) (Normal) mg/dL Urine Ketones (NEGATIVE) mg/dL Urine Blood (NEGATIVE) Urine Nitrate (NEGATIVE) Urine Bilirubin (NEGATIVE) Urine Urobilinogen (0.2-1.0) mg/dL Ur Leukocyte Esterase (Negative) Kit/uL Urine WBC (Auto) (0-5) /hpf Urine RBC (Auto) (0-3) /hpf Ur Squamous Epith Cells (0-5) /hpf Amorphous Sediment (<OCC) /ul Urine Bacteria (<OCC) Urine Opiates Screen (NEGATIVE) Urine Methadone Screen (NEGATIVE) Ur Barbiturates Screen (NEGATIVE) Ur Phencyclidine Scrn (NEGATIVE) Ur Amphetamines Screen (NEGATIVE) U Benzodiazepines Scrn (NEGATIVE) U Oth Cocaine Metabols (NEGATIVE) U Cannabinoids Screen (NEGATIVE) 07/02/17 07/02/17 07/02/17 Range/Units 16:33 16:33 13:09 WBC 2.5 L D (4.8-10.8) K/uL RBC 6.09 H (3.80-5.20) Mil/uL Hgb 16.6 H D (11.0-16.0) g/dL Hct 52.7 H (34.0-47.0) % MCV 86.6 (81.0-99.0) fL MCH 27.3 (27.0-31.0) pg MCHC 31.5 L (33.0-37.0) g/dL RDW 15.7 H (11.5-14.5) % Plt Count 226 (130-400) K/uL MPV 9.0 (7.2-11.7) fL Neut % (Auto) (50.0-75.0) % Lymph % (Auto) (20.0-40.0) % Yell % (Auto) (0.0-10.0) % Eos % (Auto) (0.0-4.0) % Baso % (Auto) (0.0-2.0) % Neut # (1.8-7.0) K/uL Lymph # (1.0-4.3) K/uL Yell # (0.0-0.8) K/uL Eos # (0.0-0.7) K/uL Baso # (0.0-0.2) K/uL Neutrophils % (Manual) (50-75) % Band Neutrophils % (0-2) % Lymphocytes % (Manual) (20-40) % Monocytes % (Manual) (0-10) % Metamyelocytes % (0-0) % Nucleated RBC % (0-0) % Platelet Estimate (NORMAL) Large Platelets Poikilocytosis (manual Anisocytosis (manual) Ovalocytes PT (9.7-12.2) SECONDS INR APTT (21-34) SECONDS Puncture Site pCO2 (35-45) mm/Hg pO2 (80-100) mm/Hg HCO3 (21-28) mmol/L ABG pH (7.35-7.45) ABG Total CO2 (22-28) mmol/L ABG O2 Saturation (95-98) % ABG Base Excess (-2.0-3.0) mmol/L ABG Hemoglobin (11.7-17.4) g/dL ABG Carboxyhemoglobin (0.5-1.5) % POC ABG HHb (Measured) (0.0-5.0) % ABG Methemoglobin (0.0-3.0) % Yaw Test ABG Potassium (3.6-5.2) mmol/L VBG pH (7.32-7.43) VBG pCO2 (40-60) mmHg VBG HCO3 mmol/L VBG Total CO2 (22-28) mmol/L VBG O2 Sat (Calc) (40-65) % VBG Base Excess (0.0-2.0) mmol/L VBG Potassium (3.6-5.2) mmol/L A-a O2 Difference mm/Hg Respiratory Index Hgb O2 Saturation (95.0-98.0) % Glucose (65-105) mg/dl Lactate (0.7-2.1) mmol/L Vent Mode Mechanical Rate FiO2 % Tidal Volume PEEP Crit Value Called To Crit Value Called By Crit Value Read Back Blood Gas Notified Time Sodium 142 (132-148) mmol/L Potassium 3.9 (3.6-5.2) mmol/L Chloride 111 H (98-107) mmol/L Carbon Dioxide 21 L (22-30) mmol/L Anion Gap 14 (10-20) BUN 20 H (7-17) mg/dL Creatinine 2.5 H (0.7-1.2) MG/DL Est GFR ( Amer) 23 Est GFR (Non-Af Amer) 19 POC Glucose (mg/dL) (65-110) mg/dL Random Glucose 58 L (65-105) mg/dL Lactic Acid (0.7-2.1) mmol/L Calcium 7.3 L (8.6-10.4) mg/dl Phosphorus 5.6 H (2.5-4.5) mg/dL Magnesium 1.7 (1.6-2.3) mg/dL Total Bilirubin 0.9 (0.2-1.3) mg/dL AST 3894 H (14-36) U/L ALT 4119 H (9-52) U/L Alkaline Phosphatase 110 (38-126) U/L Ammonia (9-33) umol/L Total Creatine Kinase 6070 H (30-135) U/L CK-MB (Mass) 33.1 H (0.0-3.38) ng/mL Troponin I (0.00-0.120) ng/mL Troponin I, Quant 1.9000 H* (0.00-0.120) ng/mL Total Protein 5.6 L (6.3-8.3) g/dL Albumin 3.0 L (3.5-5.0) g/dL Globulin 2.6 (2.2-3.9) gm/dL Albumin/Globulin Ratio 1.1 (1.0-2.1) Arterial Blood Potassium (3.6-5.2) mmol/L Venous Blood Potassium (3.6-5.2) mmol/L Urine Color Yellow (YELLOW) Urine Clarity Hazy (Clear) Urine pH 5.0 (5.0-8.0) Ur Specific [place] 1.025 (1.003-1.030) Urine Protein 2+ H (NEGATIVE) mg/dL Urine Glucose (UA) Normal (Normal) mg/dL Urine Ketones Negative (NEGATIVE) mg/dL Urine Blood 3+ H (NEGATIVE) Urine Nitrate Negative (NEGATIVE) Urine Bilirubin Negative (NEGATIVE) Urine Urobilinogen Normal (0.2-1.0) mg/dL Ur Leukocyte Esterase Neg (Negative) Kit/uL Urine WBC (Auto) 5 (0-5) /hpf Urine RBC (Auto) 11 H (0-3) /hpf Ur Squamous Epith Cells 1 (0-5) /hpf Amorphous Sediment Few H (<OCC) /ul Urine Bacteria Occ H (<OCC) Urine Opiates Screen (NEGATIVE) Urine Methadone Screen (NEGATIVE) Ur Barbiturates Screen (NEGATIVE) Ur Phencyclidine Scrn (NEGATIVE) Ur Amphetamines Screen (NEGATIVE) U Benzodiazepines Scrn (NEGATIVE) U Oth Cocaine Metabols (NEGATIVE) U Cannabinoids Screen (NEGATIVE) 07/02/17 Range/Units 13:09 WBC (4.8-10.8) K/uL RBC (3.80-5.20) Mil/uL Hgb (11.0-16.0) g/dL Hct (34.0-47.0) % MCV (81.0-99.0) fL MCH (27.0-31.0) pg MCHC (33.0-37.0) g/dL RDW (11.5-14.5) % Plt Count (130-400) K/uL MPV (7.2-11.7) fL Neut % (Auto) (50.0-75.0) % Lymph % (Auto) (20.0-40.0) % Yell % (Auto) (0.0-10.0) % Eos % (Auto) (0.0-4.0) % Baso % (Auto) (0.0-2.0) % Neut # (1.8-7.0) K/uL Lymph # (1.0-4.3) K/uL Yell # (0.0-0.8) K/uL Eos # (0.0-0.7) K/uL Baso # (0.0-0.2) K/uL Neutrophils % (Manual) (50-75) % Band Neutrophils % (0-2) % Lymphocytes % (Manual) (20-40) % Monocytes % (Manual) (0-10) % Metamyelocytes % (0-0) % Nucleated RBC % (0-0) % Platelet Estimate (NORMAL) Large Platelets Poikilocytosis (manual Anisocytosis (manual) Ovalocytes PT (9.7-12.2) SECONDS INR APTT (21-34) SECONDS Puncture Site pCO2 (35-45) mm/Hg pO2 (80-100) mm/Hg HCO3 (21-28) mmol/L ABG pH (7.35-7.45) ABG Total CO2 (22-28) mmol/L ABG O2 Saturation (95-98) % ABG Base Excess (-2.0-3.0) mmol/L ABG Hemoglobin (11.7-17.4) g/dL ABG Carboxyhemoglobin (0.5-1.5) % POC ABG HHb (Measured) (0.0-5.0) % ABG Methemoglobin (0.0-3.0) % Yaw Test ABG Potassium (3.6-5.2) mmol/L VBG pH (7.32-7.43) VBG pCO2 (40-60) mmHg VBG HCO3 mmol/L VBG Total CO2 (22-28) mmol/L VBG O2 Sat (Calc) (40-65) % VBG Base Excess (0.0-2.0) mmol/L VBG Potassium (3.6-5.2) mmol/L A-a O2 Difference mm/Hg Respiratory Index Hgb O2 Saturation (95.0-98.0) % Glucose (65-105) mg/dl Lactate (0.7-2.1) mmol/L Vent Mode Mechanical Rate FiO2 % Tidal Volume PEEP Crit Value Called To Crit Value Called By Crit Value Read Back Blood Gas Notified Time Sodium (132-148) mmol/L Potassium (3.6-5.2) mmol/L Chloride (98-107) mmol/L Carbon Dioxide (22-30) mmol/L Anion Gap (10-20) BUN (7-17) mg/dL Creatinine (0.7-1.2) MG/DL Est GFR ( Amer) Est GFR (Non-Af Amer) POC Glucose (mg/dL) (65-110) mg/dL Random Glucose (65-105) mg/dL Lactic Acid (0.7-2.1) mmol/L Calcium (8.6-10.4) mg/dl Phosphorus (2.5-4.5) mg/dL Magnesium (1.6-2.3) mg/dL Total Bilirubin (0.2-1.3) mg/dL AST (14-36) U/L ALT (9-52) U/L Alkaline Phosphatase (38-126) U/L Ammonia (9-33) umol/L Total Creatine Kinase (30-135) U/L CK-MB (Mass) (0.0-3.38) ng/mL Troponin I (0.00-0.120) ng/mL Troponin I, Quant (0.00-0.120) ng/mL Total Protein (6.3-8.3) g/dL Albumin (3.5-5.0) g/dL Globulin (2.2-3.9) gm/dL Albumin/Globulin Ratio (1.0-2.1) Arterial Blood Potassium (3.6-5.2) mmol/L Venous Blood Potassium (3.6-5.2) mmol/L Urine Color (YELLOW) Urine Clarity (Clear) Urine pH (5.0-8.0) Ur Specific [place] (1.003-1.030) Urine Protein (NEGATIVE) mg/dL Urine Glucose (UA) (Normal) mg/dL Urine Ketones (NEGATIVE) mg/dL Urine Blood (NEGATIVE) Urine Nitrate (NEGATIVE) Urine Bilirubin (NEGATIVE) Urine Urobilinogen (0.2-1.0) mg/dL Ur Leukocyte Esterase (Negative) Kit/uL Urine WBC (Auto) (0-5) /hpf Urine RBC (Auto) (0-3) /hpf Ur Squamous Epith Cells (0-5) /hpf Amorphous Sediment (<OCC) /ul Urine Bacteria (<OCC) Urine Opiates Screen Positive (NEGATIVE) Urine Methadone Screen Negative (NEGATIVE) Ur Barbiturates Screen Negative (NEGATIVE) Ur Phencyclidine Scrn Negative (NEGATIVE) Ur Amphetamines Screen Negative (NEGATIVE) U Benzodiazepines Scrn Positive (NEGATIVE) U Oth Cocaine Metabols Negative (NEGATIVE) U Cannabinoids Screen Negative (NEGATIVE) Laboratory Results - last 24 hr 07/02/17 07/02/17 07/02/17 13:09 13:09 16:33 WBC 2.5 L D RBC 6.09 H Hgb 16.6 H D Hct 52.7 H MCV 86.6 MCH 27.3 MCHC 31.5 L RDW 15.7 H Plt Count 226 MPV 9.0 Neut % (Auto) Lymph % (Auto) Yell % (Auto) Eos % (Auto) Baso % (Auto) Neut # Lymph # Yell # Eos # Baso # Neutrophils % (Manual) Band Neutrophils % Lymphocytes % (Manual) Monocytes % (Manual) Metamyelocytes % Nucleated RBC % Platelet Estimate Large Platelets Poikilocytosis (manual Anisocytosis (manual) Ovalocytes PT INR APTT Puncture Site pCO2 pO2 HCO3 ABG pH ABG Total CO2 ABG O2 Saturation ABG Base Excess ABG Hemoglobin ABG Carboxyhemoglobin POC ABG HHb (Measured) ABG Methemoglobin Yaw Test ABG Potassium VBG pH VBG pCO2 VBG HCO3 VBG Total CO2 VBG O2 Sat (Calc) VBG Base Excess VBG Potassium A-a O2 Difference Respiratory Index Hgb O2 Saturation Glucose Lactate Vent Mode Mechanical Rate FiO2 Tidal Volume PEEP Crit Value Called To Crit Value Called By Crit Value Read Back Blood Gas Notified Time Sodium Potassium Chloride Carbon Dioxide Anion Gap BUN Creatinine Est GFR ( Amer) Est GFR (Non-Af Amer) POC Glucose (mg/dL) Random Glucose Lactic Acid Calcium Phosphorus Magnesium Total Bilirubin AST ALT Alkaline Phosphatase Ammonia Total Creatine Kinase CK-MB (Mass) Troponin I Troponin I, Quant Total Protein Albumin Globulin Albumin/Globulin Ratio Arterial Blood Potassium Venous Blood Potassium Urine Color Yellow Urine Clarity Hazy Urine pH 5.0 Ur Specific [place] 1.025 Urine Protein 2+ H Urine Glucose (UA) Normal Urine Ketones Negative Urine Blood 3+ H Urine Nitrate Negative Urine Bilirubin Negative Urine Urobilinogen Normal Ur Leukocyte Esterase Neg Urine WBC (Auto) 5 Urine RBC (Auto) 11 H Ur Squamous Epith Cells 1 Amorphous Sediment Few H Urine Bacteria Occ H Urine Opiates Screen Positive Urine Methadone Screen Negative Ur Barbiturates Screen Negative Ur Phencyclidine Scrn Negative Ur Amphetamines Screen Negative U Benzodiazepines Scrn Positive U Oth Cocaine Metabols Negative U Cannabinoids Screen Negative 07/02/17 07/02/17 07/02/17 16:33 16:33 17:25 WBC RBC Hgb Hct MCV MCH MCHC RDW Plt Count MPV Neut % (Auto) Lymph % (Auto) Yell % (Auto) Eos % (Auto) Baso % (Auto) Neut # Lymph # Yell # Eos # Baso # Neutrophils % (Manual) Band Neutrophils % Lymphocytes % (Manual) Monocytes % (Manual) Metamyelocytes % Nucleated RBC % Platelet Estimate Large Platelets Poikilocytosis (manual Anisocytosis (manual) Ovalocytes PT INR APTT Puncture Site Rba pCO2 84 H* pO2 58 L HCO3 12.3 L ABG pH 6.95 L* ABG Total CO2 21.1 L ABG O2 Saturation 90.1 L ABG Base Excess -15.8 L ABG Hemoglobin 17.1 ABG Carboxyhemoglobin 1.3 POC ABG HHb (Measured) 9.7 H ABG Methemoglobin 0.9 Yaw Test Na ABG Potassium VBG pH VBG pCO2 VBG HCO3 VBG Total CO2 VBG O2 Sat (Calc) VBG Base Excess VBG Potassium A-a O2 Difference 550.0 Respiratory Index 9.5 Hgb O2 Saturation 88.2 L Glucose Lactate Vent Mode Prvc Mechanical Rate 20 FiO2 100.0 Tidal Volume 470 PEEP 14 Crit Value Called To [facility] nurse abel Crit Value Called By Fariha rt Crit Value Read Back Y Blood Gas Notified Time 1729 Sodium 142 Potassium 3.9 Chloride 111 H Carbon Dioxide 21 L Anion Gap 14 BUN 20 H Creatinine 2.5 H Est GFR ( Amer) 23 Est GFR (Non-Af Amer) 19 POC Glucose (mg/dL) Random Glucose 58 L Lactic Acid 3.0 H Calcium 7.3 L Phosphorus 5.6 H Magnesium 1.7 Total Bilirubin 0.9 AST 3894 H ALT 4119 H Alkaline Phosphatase 110 Ammonia Total Creatine Kinase 6070 H CK-MB (Mass) 33.1 H Troponin I Troponin I, Quant 1.9000 H* Total Protein 5.6 L Albumin 3.0 L Globulin 2.6 Albumin/Globulin Ratio 1.1 Arterial Blood Potassium Venous Blood Potassium Urine Color Urine Clarity Urine pH Ur Specific [place] Urine Protein Urine Glucose (UA) Urine Ketones Urine Blood Urine Nitrate Urine Bilirubin Urine Urobilinogen Ur Leukocyte Esterase Urine WBC (Auto) Urine RBC (Auto) Ur Squamous Epith Cells Amorphous Sediment Urine Bacteria Urine Opiates Screen Urine Methadone Screen Ur Barbiturates Screen Ur Phencyclidine Scrn Ur Amphetamines Screen U Benzodiazepines Scrn U Oth Cocaine Metabols U Cannabinoids Screen 07/02/17 07/02/17 07/02/17 20:21 20:26 20:26 WBC 1.0 L* D RBC 5.91 H Hgb 16.2 H Hct 50.4 H MCV 85.2 MCH 27.4 MCHC 32.2 L RDW 15.7 H Plt Count 188 MPV 9.1 Neut % (Auto) 64.8 Lymph % (Auto) 29.6 Yell % (Auto) 5.4 Eos % (Auto) 0.1 Baso % (Auto) 0.1 Neut # 0.6 L Lymph # 0.3 L Yell # 0.1 Eos # 0.0 Baso # 0.0 Neutrophils % (Manual) 41 L Band Neutrophils % 17 H* Lymphocytes % (Manual) 35 Monocytes % (Manual) 6 Metamyelocytes % 1 H Nucleated RBC % 2 H Platelet Estimate Normal Large Platelets Present Poikilocytosis (manual Slight Anisocytosis (manual) Slight Ovalocytes Slight PT 29.9 H* INR 2.6 APTT 33 Puncture Site pCO2 pO2 25 L HCO3 ABG pH ABG Total CO2 ABG O2 Saturation ABG Base Excess ABG Hemoglobin ABG Carboxyhemoglobin POC ABG HHb (Measured) ABG Methemoglobin Yaw Test ABG Potassium VBG pH 7.06 L* VBG pCO2 90 H* VBG HCO3 17.5 VBG Total CO2 28.3 H VBG O2 Sat (Calc) 48.4 VBG Base Excess -6.9 L VBG Potassium 3.5 L A-a O2 Difference Respiratory Index Hgb O2 Saturation Glucose 52 L Lactate 3.9 H Vent Mode Mechanical Rate FiO2 100.0 Tidal Volume PEEP 18 Crit Value Called To Dr. diop Crit Value Called By Godfree rt Crit Value Read Back Y Blood Gas Notified Time 2026 Sodium 144.0 Potassium Chloride 109.0 H Carbon Dioxide Anion Gap BUN Creatinine Est GFR ( Amer) Est GFR (Non-Af Amer) POC Glucose (mg/dL) Random Glucose Lactic Acid Calcium Phosphorus Magnesium Total Bilirubin AST ALT Alkaline Phosphatase Ammonia Total Creatine Kinase CK-MB (Mass) Troponin I Troponin I, Quant Total Protein Albumin Globulin Albumin/Globulin Ratio Arterial Blood Potassium Venous Blood Potassium 3.5 L Urine Color Urine Clarity Urine pH Ur Specific [place] Urine Protein Urine Glucose (UA) Urine Ketones Urine Blood Urine Nitrate Urine Bilirubin Urine Urobilinogen Ur Leukocyte Esterase Urine WBC (Auto) Urine RBC (Auto) Ur Squamous Epith Cells Amorphous Sediment Urine Bacteria Urine Opiates Screen Urine Methadone Screen Ur Barbiturates Screen Ur Phencyclidine Scrn Ur Amphetamines Screen U Benzodiazepines Scrn U Oth Cocaine Metabols U Cannabinoids Screen 07/02/17 07/02/17 07/02/17 20:26 20:26 22:36 WBC RBC Hgb Hct MCV MCH MCHC RDW Plt Count MPV Neut % (Auto) Lymph % (Auto) Yell % (Auto) Eos % (Auto) Baso % (Auto) Neut # Lymph # Yell # Eos # Baso # Neutrophils % (Manual) Band Neutrophils % Lymphocytes % (Manual) Monocytes % (Manual) Metamyelocytes % Nucleated RBC % Platelet Estimate Large Platelets Poikilocytosis (manual Anisocytosis (manual) Ovalocytes PT INR APTT Puncture Site pCO2 pO2 32 HCO3 ABG pH ABG Total CO2 ABG O2 Saturation ABG Base Excess ABG Hemoglobin ABG Carboxyhemoglobin POC ABG HHb (Measured) ABG Methemoglobin Yaw Test ABG Potassium VBG pH 7.09 L* VBG pCO2 81 H* VBG HCO3 17.8 VBG Total CO2 27.1 VBG O2 Sat (Calc) 65.4 H VBG Base Excess -7.0 L VBG Potassium 3.2 L A-a O2 Difference Respiratory Index Hgb O2 Saturation Glucose 31 L* D Lactate 4.7 H* Vent Mode Mechanical Rate FiO2 100.0 Tidal Volume PEEP 18 Crit Value Called To Dr. diop Crit Value Called By Fariha rt Crit Value Read Back Y Blood Gas Notified Time 2240 Sodium 146 145.0 Potassium 3.5 L Chloride 107 110.0 H Carbon Dioxide 27 Anion Gap 16 BUN 22 H Creatinine 2.8 H Est GFR ( Amer) 21 Est GFR (Non-Af Amer) 17 POC Glucose (mg/dL) Random Glucose 42 L Lactic Acid Calcium 7.3 L Phosphorus 5.3 H Magnesium 1.6 Total Bilirubin 0.9 AST 4880 H ALT 4012 H Alkaline Phosphatase 100 Ammonia 29 Total Creatine Kinase 5456 H CK-MB (Mass) Troponin I Troponin I, Quant Total Protein 5.2 L Albumin 2.8 L Globulin 2.4 Albumin/Globulin Ratio 1.2 Arterial Blood Potassium Venous Blood Potassium 3.2 L Urine Color Urine Clarity Urine pH Ur Specific [place] Urine Protein Urine Glucose (UA) Urine Ketones Urine Blood Urine Nitrate Urine Bilirubin Urine Urobilinogen Ur Leukocyte Esterase Urine WBC (Auto) Urine RBC (Auto) Ur Squamous Epith Cells Amorphous Sediment Urine Bacteria Urine Opiates Screen Urine Methadone Screen Ur Barbiturates Screen Ur Phencyclidine Scrn Ur Amphetamines Screen U Benzodiazepines Scrn U Oth Cocaine Metabols U Cannabinoids Screen 07/02/17 07/02/17 07/03/17 23:03 23:38 00:43 WBC RBC Hgb Hct MCV MCH MCHC RDW Plt Count MPV Neut % (Auto) Lymph % (Auto) Yell % (Auto) Eos % (Auto) Baso % (Auto) Neut # Lymph # Yell # Eos # Baso # Neutrophils % (Manual) Band Neutrophils % Lymphocytes % (Manual) Monocytes % (Manual) Metamyelocytes % Nucleated RBC % Platelet Estimate Large Platelets Poikilocytosis (manual Anisocytosis (manual) Ovalocytes PT INR APTT Puncture Site R rad pCO2 60 H pO2 119 H HCO3 18.7 L ABG pH 7.16 L* ABG Total CO2 23.2 ABG O2 Saturation 98.9 H ABG Base Excess -8.0 L ABG Hemoglobin ABG Carboxyhemoglobin POC ABG HHb (Measured) ABG Methemoglobin Yaw Test Pos ABG Potassium 2.9 L VBG pH VBG pCO2 VBG HCO3 VBG Total CO2 VBG O2 Sat (Calc) VBG Base Excess VBG Potassium A-a O2 Difference 519.0 Respiratory Index 4.4 Hgb O2 Saturation Glucose 112 H Lactate 6.1 H* Vent Mode Prvc Mechanical Rate 28 FiO2 100.0 Tidal Volume 450 PEEP 16 Crit Value Called To Dr diop Crit Value Called By Litzy muñoz rt Crit Value Read Back Y Blood Gas Notified Time 115 Sodium 143.0 Potassium Chloride 108.0 H Carbon Dioxide Anion Gap BUN Creatinine Est GFR ( Amer) Est GFR (Non-Af Amer) POC Glucose (mg/dL) < 20 L* 85 Random Glucose Lactic Acid Calcium Phosphorus Magnesium Total Bilirubin AST ALT Alkaline Phosphatase Ammonia Total Creatine Kinase CK-MB (Mass) Troponin I Troponin I, Quant Total Protein Albumin Globulin Albumin/Globulin Ratio Arterial Blood Potassium 2.9 L Venous Blood Potassium Urine Color Urine Clarity Urine pH Ur Specific [place] Urine Protein Urine Glucose (UA) Urine Ketones Urine Blood Urine Nitrate Urine Bilirubin Urine Urobilinogen Ur Leukocyte Esterase Urine WBC (Auto) Urine RBC (Auto) Ur Squamous Epith Cells Amorphous Sediment Urine Bacteria Urine Opiates Screen Urine Methadone Screen Ur Barbiturates Screen Ur Phencyclidine Scrn Ur Amphetamines Screen U Benzodiazepines Scrn U Oth Cocaine Metabols U Cannabinoids Screen 07/03/17 07/03/17 07/03/17 02:49 05:38 06:00 WBC RBC Hgb Hct MCV MCH MCHC RDW Plt Count MPV Neut % (Auto) Lymph % (Auto) Yell % (Auto) Eos % (Auto) Baso % (Auto) Neut # Lymph # Yell # Eos # Baso # Neutrophils % (Manual) Band Neutrophils % Lymphocytes % (Manual) Monocytes % (Manual) Metamyelocytes % Nucleated RBC % Platelet Estimate Large Platelets Poikilocytosis (manual Anisocytosis (manual) Ovalocytes PT INR APTT Puncture Site pCO2 pO2 HCO3 ABG pH ABG Total CO2 ABG O2 Saturation ABG Base Excess ABG Hemoglobin ABG Carboxyhemoglobin POC ABG HHb (Measured) ABG Methemoglobin Yaw Test ABG Potassium VBG pH VBG pCO2 VBG HCO3 VBG Total CO2 VBG O2 Sat (Calc) VBG Base Excess VBG Potassium A-a O2 Difference Respiratory Index Hgb O2 Saturation Glucose Lactate Vent Mode Mechanical Rate FiO2 Tidal Volume PEEP Crit Value Called To Crit Value Called By Crit Value Read Back Blood Gas Notified Time Sodium Potassium Chloride Carbon Dioxide Anion Gap BUN Creatinine Est GFR ( Amer) Est GFR (Non-Af Amer) POC Glucose (mg/dL) 95 96 Random Glucose Lactic Acid Calcium Phosphorus Magnesium Total Bilirubin AST ALT Alkaline Phosphatase Ammonia 25 Total Creatine Kinase CK-MB (Mass) Troponin I Troponin I, Quant Total Protein Albumin Globulin Albumin/Globulin Ratio Arterial Blood Potassium Venous Blood Potassium Urine Color Urine Clarity Urine pH Ur Specific [place] Urine Protein Urine Glucose (UA) Urine Ketones Urine Blood Urine Nitrate Urine Bilirubin Urine Urobilinogen Ur Leukocyte Esterase Urine WBC (Auto) Urine RBC (Auto) Ur Squamous Epith Cells Amorphous Sediment Urine Bacteria Urine Opiates Screen Urine Methadone Screen Ur Barbiturates Screen Ur Phencyclidine Scrn Ur Amphetamines Screen U Benzodiazepines Scrn U Oth Cocaine Metabols U Cannabinoids Screen 07/03/17 07/03/17 07/03/17 06:00 06:00 06:00 WBC 3.4 L D RBC 5.50 H Hgb 15.1 Hct 47.0 MCV 85.5 MCH 27.5 MCHC 32.2 L RDW 15.6 H Plt Count 150 MPV 9.9 Neut % (Auto) 82.0 H Lymph % (Auto) 12.5 L Yell % (Auto) 2.5 Eos % (Auto) 2.5 Baso % (Auto) 0.5 Neut # 2.7 Lymph # 0.4 L Yell # 0.1 Eos # 0.1 Baso # 0.0 Neutrophils % (Manual) Band Neutrophils % Lymphocytes % (Manual) Monocytes % (Manual) Metamyelocytes % Nucleated RBC % Platelet Estimate Large Platelets Poikilocytosis (manual Anisocytosis (manual) Ovalocytes PT 30.5 H* INR 2.6 APTT 31 Puncture Site pCO2 pO2 HCO3 ABG pH ABG Total CO2 ABG O2 Saturation ABG Base Excess ABG Hemoglobin ABG Carboxyhemoglobin POC ABG HHb (Measured) ABG Methemoglobin Yaw Test ABG Potassium VBG pH VBG pCO2 VBG HCO3 VBG Total CO2 VBG O2 Sat (Calc) VBG Base Excess VBG Potassium A-a O2 Difference Respiratory Index Hgb O2 Saturation Glucose Lactate Vent Mode Mechanical Rate FiO2 Tidal Volume PEEP Crit Value Called To Crit Value Called By Crit Value Read Back Blood Gas Notified Time Sodium 142 Potassium 2.8 L Chloride 102 Carbon Dioxide 21 L Anion Gap 22 H BUN 27 H Creatinine 3.6 H Est GFR ( Amer) 15 Est GFR (Non-Af Amer) 13 POC Glucose (mg/dL) Random Glucose 94 Lactic Acid Calcium 6.8 L Phosphorus 5.0 H Magnesium 1.4 L Total Bilirubin 1.1 AST 5295 H ALT 4114 H Alkaline Phosphatase 87 Ammonia Total Creatine Kinase 6338 H CK-MB (Mass) 21.5 H Troponin I 4.8600 H* Troponin I, Quant Total Protein 4.9 L Albumin 2.7 L Globulin 2.1 L Albumin/Globulin Ratio 1.3 Arterial Blood Potassium Venous Blood Potassium Urine Color Urine Clarity Urine pH Ur Specific [place] Urine Protein Urine Glucose (UA) Urine Ketones Urine Blood Urine Nitrate Urine Bilirubin Urine Urobilinogen Ur Leukocyte Esterase Urine WBC (Auto) Urine RBC (Auto) Ur Squamous Epith Cells Amorphous Sediment Urine Bacteria Urine Opiates Screen Urine Methadone Screen Ur Barbiturates Screen Ur Phencyclidine Scrn Ur Amphetamines Screen U Benzodiazepines Scrn U Oth Cocaine Metabols U Cannabinoids Screen 07/03/17 08:10 WBC RBC Hgb Hct MCV MCH MCHC RDW Plt Count MPV Neut % (Auto) Lymph % (Auto) Yell % (Auto) Eos % (Auto) Baso % (Auto) Neut # Lymph # Yell # Eos # Baso # Neutrophils % (Manual) Band Neutrophils % Lymphocytes % (Manual) Monocytes % (Manual) Metamyelocytes % Nucleated RBC % Platelet Estimate Large Platelets Poikilocytosis (manual Anisocytosis (manual) Ovalocytes PT INR APTT Puncture Site pCO2 pO2 HCO3 ABG pH ABG Total CO2 ABG O2 Saturation ABG Base Excess ABG Hemoglobin ABG Carboxyhemoglobin POC ABG HHb (Measured) ABG Methemoglobin Yaw Test ABG Potassium VBG pH VBG pCO2 VBG HCO3 VBG Total CO2 VBG O2 Sat (Calc) VBG Base Excess VBG Potassium A-a O2 Difference Respiratory Index Hgb O2 Saturation Glucose Lactate Vent Mode Mechanical Rate FiO2 Tidal Volume PEEP Crit Value Called To Crit Value Called By Crit Value Read Back Blood Gas Notified Time Sodium Potassium Chloride Carbon Dioxide Anion Gap BUN Creatinine Est GFR ( Amer) Est GFR (Non-Af Amer) POC Glucose (mg/dL) 70 Random Glucose Lactic Acid Calcium Phosphorus Magnesium Total Bilirubin AST ALT Alkaline Phosphatase Ammonia Total Creatine Kinase CK-MB (Mass) Troponin I Troponin I, Quant Total Protein Albumin Globulin Albumin/Globulin Ratio Arterial Blood Potassium Venous Blood Potassium Urine Color Urine Clarity Urine pH Ur Specific [place] Urine Protein Urine Glucose (UA) Urine Ketones Urine Blood Urine Nitrate Urine Bilirubin Urine Urobilinogen Ur Leukocyte Esterase Urine WBC (Auto) Urine RBC (Auto) Ur Squamous Epith Cells Amorphous Sediment Urine Bacteria Urine Opiates Screen Urine Methadone Screen Ur Barbiturates Screen Ur Phencyclidine Scrn Ur Amphetamines Screen U Benzodiazepines Scrn U Oth Cocaine Metabols U Cannabinoids Screen EKG/Cardiology Studies: Cardiology / EKG Studies 07/02/17 12:26 ELECTROCARDIOGRAM Stat Comment: Mode Of Transportation: BED Reason For Exam: Detox/Psy Fingerstick Blood Sugar Results: 70 Review of Systems - Review of Systems Systems not reviewed;Unavailable: Intubated Critical Care Progress Note - Vent Settings TIDAL VOLUME:: 500 RESP RATE:: 22 FIO2:: 100 PEEP:: 18 Assessment/Plan - Assessment and Plan (Free Text) Assessment: 66yo F. PMHx Atrial Fibrillation, Bipolar Disorder, Depression, HTN. p/w hematemesis, AMS and hypotension. Neuro: unresponsive, possible paralytic (given by EMS) still present. Patient may have overdosed on Xanax and Morphine, gave Narcan, no change. Pulm: aspiration pneumonitis, probable pneumonia. Performed bronch 07/03/17. CV: septic shock, started on levophed, dopamine and vasopressin. Hem: no anemia on first h/h (prior to transfusion), making it unlikely GI bleed. 2 PRBC units given in ED with 4L saline boluses. Renal: acute renal failure, baseline unknown. Will monitor urine output. Endo: no acute issues GI: No signs of upper or lower GI bleed, Hgb stable after 2U PRBC's and FFP. No plan for emergent endoscopic evaluation. Transaminitis-multifactorial hypotension/septic shock, polysubstance abuse. Abd US Duplex ordered to r/o venous occlusion. Hepatitis panel and autoimmune workup ordered. ID: septic shock, starting Zosyn for aspiration pneumonia. DVT proph - heparin sq GI proph - protonix iv 40mg daily rick for strict I/O's during acute illness Code status - full code
--- NOTE | 2017-07-03 08:53 | RAD ---
HISTORY: patient on vent COMPARISON: Portable chest 07/02/2017. FINDINGS: Endotracheal tube a nasogastric tube do not appear significantly changed in position. LUNGS: There is mixed presentation of infiltrates scattered throughout the right lung with the periphery appearing less involved throughout although the density of the central infiltrated subsegments appearing increased. Upper right lung zone infiltrate has increased. No left-sided infiltrate. PLEURA: No significant pleural effusion identified, no pneumothorax apparent. CARDIOVASCULAR: Normal. OSSEOUS STRUCTURES: No significant abnormalities. VISUALIZED UPPER ABDOMEN: Normal. OTHER FINDINGS: None. IMPRESSION: Mild worsening of diffuse right-sided infiltrate, particularly at the upper right lung zone.
[2017-07-03 09:12] LABS: EOSINOPHIL 5 % (0-4); LARGE PLATELETS PRESENT; MYELOCYTE 4 % (0-0); NEUTROPHIL 9 % (50-75); NUCLEATED RED BLOOD CELL 2 % (0-0); TOTAL CELLS COUNTED 100
[2017-07-03] MEDS ORDERED: Dextrose 50% SYRINGE Inj (50 ml) ONE (11:42)
[2017-07-03] MEDS ORDERED: Dextrose 50% SYRINGE Inj (50 ml) IV ONE ×2 (12:00→13:30)
--- NOTE | 2017-07-03 12:58 | CP.PCM.CON ---
<Lennie Guerrero - Last Filed: 07/03/17 13:08> History of Present Illness - History of Present Illness History of Present Illness: GI Fellow PGY4 Consult Note This is a 66yF with hx of polysubstance abuse including morphine po, xanx, antidepressant, and hx of cocaine abuse 30yrs, depression, bipolar disorder, chronic pain brought to the ER after being found down by daughter. Pt intubated for airway protection, unresponsive, and per EMS pt was vomiting bright red blood. Pt was hypotensive in ER with SBP 60s but Hgb was stable at 12.8 with no active GI bleeding, pt received 2U PRBCs and FFP. Per pt's son, no reported hx of liver disease, hepatitis, or alcohol abuse. She does have a hx of abusing xanx, morphine and may have overdosed per son and was found down with respiratory depression. Pt currently intubated on mechanical ventilation, unresponsive, septic shock on two pressors. Consult was place for GI bleed and transminitis. ROS: A 12pt ROS was obtained and was negative except as above. PmHx; As stated in HPI PsHx: As state din HPI FHx: negative for colon cancer SHx: polysubstance abuse including morphine and xanx, hx of cocaine abuse 30yrs ago, pt's son denies hx of alcohol or hepatitis Past Patient History - Past Medical History & Family History Past Medical History?: Yes - Past Social History Smoking Status: Heavy Smoker > 10 Cigarettes Daily - CARDIAC Hx Atrial Fibrillation: Yes Hx Hypertension: Yes - PULMONARY Hx Respiratory Disorders: No - NEUROLOGICAL Hx Neurological Disorder: No - HEENT Hx HEENT Problems: No - RENAL Hx Chronic Kidney Disease: No - ENDOCRINE/METABOLIC Hx Endocrine Disorders: No - HEMATOLOGICAL/ONCOLOGICAL Hx Blood Disorders: No - INTEGUMENTARY Hx Dermatological Problems: No - MUSCULOSKELETAL/RHEUMATOLOGICAL Hx Falls: Yes - GASTROINTESTINAL Hx Gastrointestinal Disorders: No - GENITOURINARY/GYNECOLOGICAL Hx Genitourinary Disorders: No - PSYCHIATRIC Hx Bipolar Disorder: Yes Hx Depression: Yes Hx Substance Use: No (unknown) - SURGICAL HISTORY Hx Surgeries: No - ANESTHESIA Hx Anesthesia: No Hx Anesthesia Reactions: No Meds Allergies/Adverse Reactions: Allergies Allergy/AdvReac Type Severity Reaction Status Date / Time No Known Allergies Allergy Unverified 07/02/17 11:13 - Medications Medications: Current Medications Albuterol/Ipratropium (Duoneb 3 Mg/0.5 Mg (3 Ml) Ud) 3 ml INH RQ6 [facility] Budesonide (Pulmicort Respules) 0.5 mg INH RQ12 [facility] Phenylephrine HCl 30 mg/ (Sodium Chloride) 253 mls @ 50.6 mls/hr IV .Q5H PRN; Protocol; 100 MCG/MIN PRN Reason: TITRATE PER MD ORDER Last Titration: 07/03/17 09:26 Dose: 88.93 mcg/min, 45 mls/hr Norepinephrine Bitartrate 8 mg (/ Sodium Chloride) 258 mls @ 7.74 mls/hr IV .Q24H PRN; Protocol; 4 MCG/MIN PRN Reason: TITRATE PER MD ORDER Last Admin: 07/03/17 07:49 Dose: 19.37 mcg/min, 37.48 mls/hr Piperacillin Sod/Tazobactam Sod (Zosyn 2.25 Gm Iv Premix) 2.25 gm in 50 mls @ 100 mls/hr IVPB Q8H [facility] Last Admin: 07/03/17 07:11 Dose: 100 mls/hr Sodium Bicarbonate 150 meq/ (Dextrose) 1,150 mls @ 150 mls/hr IV .Q7H40M [facility] Last Admin: 07/03/17 07:46 Dose: 150 mls/hr Influenza Virus Vaccine (Afluria) 45 mcg IM .ONCE ONE Stop: 07/05/17 10:01 Pantoprazole Sodium (Protonix Inj) 40 mg IVP DAILY [facility] Pneumococcal Polyvalent Vaccine (Pneumovax 23 Vaccine) 0.5 ml IM .ONCE ONE Stop: 07/05/17 10:01 Physical Exam - Constitutional Appears: Toxic, In Acute Distress - Head Exam Head Exam: ATRAUMATIC, NORMAL INSPECTION, NORMOCEPHALIC - Eye Exam Eye Exam: Normal appearance Additional comments: pinpoint - ENT Exam ENT Exam: Mucous Membranes Moist Additional comments: ETT, OGT with bilious outpt - Respiratory Exam Respiratory Exam: Rhonchi - Cardiovascular Exam Cardiovascular Exam: Irregular Rhythm, +S1, +S2 - GI/Abdominal Exam GI & Abdominal Exam: Normal Bowel Sounds, Soft. absent: Tenderness - Rectal Exam Rectal Exam: Deferred - Extremities Exam Extremities exam: Positive for: normal inspection - Neurological Exam Additional comments: Intubated, unresponsive - Skin Skin Exam: Dry, Intact, Normal Color, Warm Results - Vital Signs Recent Vital Signs: Last Vital Signs Temp 96.7 F L 07/03/17 08:00 Pulse 106 H 07/03/17 11:45 Resp 28 H 07/03/17 11:45 BP 81/53 L 07/03/17 11:45 Pulse Ox 82 L 07/03/17 09:15 - Labs Result Diagrams: 07/03/17 06:00 07/03/17 06:00 Labs: Laboratory Results - last 24 hr 07/02/17 07/02/17 07/02/17 13:09 13:09 16:33 WBC 2.5 L D RBC 6.09 H Hgb 16.6 H D Hct 52.7 H MCV 86.6 MCH 27.3 MCHC 31.5 L RDW 15.7 H Plt Count 226 MPV 9.0 Neut % (Auto) Lymph % (Auto) Hunt % (Auto) Eos % (Auto) Baso % (Auto) Neut # Lymph # Hunt # Eos # Baso # Neutrophils % (Manual) Band Neutrophils % Lymphocytes % (Manual) Monocytes % (Manual) Eosinophils % (Manual) Metamyelocytes % Myelocytes % Nucleated RBC % Toxic Granulation Platelet Estimate Large Platelets Poikilocytosis (manual Anisocytosis (manual) Ovalocytes PT INR APTT Puncture Site pCO2 pO2 HCO3 ABG pH ABG Total CO2 ABG O2 Saturation ABG Base Excess ABG Hemoglobin ABG Carboxyhemoglobin POC ABG HHb (Measured) ABG Methemoglobin Yaw Test ABG Potassium VBG pH VBG pCO2 VBG HCO3 VBG Total CO2 VBG O2 Sat (Calc) VBG Base Excess VBG Potassium A-a O2 Difference Respiratory Index Hgb O2 Saturation Glucose Lactate Vent Mode Mechanical Rate FiO2 Tidal Volume PEEP Crit Value Called To Crit Value Called By Crit Value Read Back Blood Gas Notified Time Sodium Potassium Chloride Carbon Dioxide Anion Gap BUN Creatinine Est GFR ( Amer) Est GFR (Non-Af Amer) POC Glucose (mg/dL) Random Glucose Lactic Acid Calcium Phosphorus Magnesium Total Bilirubin AST ALT Alkaline Phosphatase Ammonia Total Creatine Kinase CK-MB (Mass) Troponin I Troponin I, Quant Total Protein Albumin Globulin Albumin/Globulin Ratio Arterial Blood Potassium Venous Blood Potassium Urine Color Yellow Urine Clarity Hazy Urine pH 5.0 Ur Specific [place] 1.025 Urine Protein 2+ H Urine Glucose (UA) Normal Urine Ketones Negative Urine Blood 3+ H Urine Nitrate Negative Urine Bilirubin Negative Urine Urobilinogen Normal Ur Leukocyte Esterase Neg Urine WBC (Auto) 5 Urine RBC (Auto) 11 H Ur Squamous Epith Cells 1 Amorphous Sediment Few H Urine Bacteria Occ H Urine Opiates Screen Positive Urine Methadone Screen Negative Ur Barbiturates Screen Negative Ur Phencyclidine Scrn Negative Ur Amphetamines Screen Negative U Benzodiazepines Scrn Positive U Oth Cocaine Metabols Negative U Cannabinoids Screen Negative 07/02/17 07/02/17 07/02/17 16:33 16:33 17:25 WBC RBC Hgb Hct MCV MCH MCHC RDW Plt Count MPV Neut % (Auto) Lymph % (Auto) Hunt % (Auto) Eos % (Auto) Baso % (Auto) Neut # Lymph # Hunt # Eos # Baso # Neutrophils % (Manual) Band Neutrophils % Lymphocytes % (Manual) Monocytes % (Manual) Eosinophils % (Manual) Metamyelocytes % Myelocytes % Nucleated RBC % Toxic Granulation Platelet Estimate Large Platelets Poikilocytosis (manual Anisocytosis (manual) Ovalocytes PT INR APTT Puncture Site Rba pCO2 84 H* pO2 58 L HCO3 12.3 L ABG pH 6.95 L* ABG Total CO2 21.1 L ABG O2 Saturation 90.1 L ABG Base Excess -15.8 L ABG Hemoglobin 17.1 ABG Carboxyhemoglobin 1.3 POC ABG HHb (Measured) 9.7 H ABG Methemoglobin 0.9 Yaw Test Na ABG Potassium VBG pH VBG pCO2 VBG HCO3 VBG Total CO2 VBG O2 Sat (Calc) VBG Base Excess VBG Potassium A-a O2 Difference 550.0 Respiratory Index 9.5 Hgb O2 Saturation 88.2 L Glucose Lactate Vent Mode Prvc Mechanical Rate 20 FiO2 100.0 Tidal Volume 470 PEEP 14 Crit Value Called To [facility] nurse abel Crit Value Called By Fariha rt Crit Value Read Back Y Blood Gas Notified Time 1729 Sodium 142 Potassium 3.9 Chloride 111 H Carbon Dioxide 21 L Anion Gap 14 BUN 20 H Creatinine 2.5 H Est GFR ( Amer) 23 Est GFR (Non-Af Amer) 19 POC Glucose (mg/dL) Random Glucose 58 L Lactic Acid 3.0 H Calcium 7.3 L Phosphorus 5.6 H Magnesium 1.7 Total Bilirubin 0.9 AST 3894 H ALT 4119 H Alkaline Phosphatase 110 Ammonia Total Creatine Kinase 6070 H CK-MB (Mass) 33.1 H Troponin I Troponin I, Quant 1.9000 H* Total Protein 5.6 L Albumin 3.0 L Globulin 2.6 Albumin/Globulin Ratio 1.1 Arterial Blood Potassium Venous Blood Potassium Urine Color Urine Clarity Urine pH Ur Specific [place] Urine Protein Urine Glucose (UA) Urine Ketones Urine Blood Urine Nitrate Urine Bilirubin Urine Urobilinogen Ur Leukocyte Esterase Urine WBC (Auto) Urine RBC (Auto) Ur Squamous Epith Cells Amorphous Sediment Urine Bacteria Urine Opiates Screen Urine Methadone Screen Ur Barbiturates Screen Ur Phencyclidine Scrn Ur Amphetamines Screen U Benzodiazepines Scrn U Oth Cocaine Metabols U Cannabinoids Screen 07/02/17 07/02/17 07/02/17 20:21 20:26 20:26 WBC 1.0 L* D RBC 5.91 H Hgb 16.2 H Hct 50.4 H MCV 85.2 MCH 27.4 MCHC 32.2 L RDW 15.7 H Plt Count 188 MPV 9.1 Neut % (Auto) 64.8 Lymph % (Auto) 29.6 Hunt % (Auto) 5.4 Eos % (Auto) 0.1 Baso % (Auto) 0.1 Neut # 0.6 L Lymph # 0.3 L Hunt # 0.1 Eos # 0.0 Baso # 0.0 Neutrophils % (Manual) 41 L Band Neutrophils % 17 H* Lymphocytes % (Manual) 35 Monocytes % (Manual) 6 Eosinophils % (Manual) Metamyelocytes % 1 H Myelocytes % Nucleated RBC % 2 H Toxic Granulation Platelet Estimate Normal Large Platelets Present Poikilocytosis (manual Slight Anisocytosis (manual) Slight Ovalocytes Slight PT 29.9 H* INR 2.6 APTT 33 Puncture Site pCO2 pO2 25 L HCO3 ABG pH ABG Total CO2 ABG O2 Saturation ABG Base Excess ABG Hemoglobin ABG Carboxyhemoglobin POC ABG HHb (Measured) ABG Methemoglobin Yaw Test ABG Potassium VBG pH 7.06 L* VBG pCO2 90 H* VBG HCO3 17.5 VBG Total CO2 28.3 H VBG O2 Sat (Calc) 48.4 VBG Base Excess -6.9 L VBG Potassium 3.5 L A-a O2 Difference Respiratory Index Hgb O2 Saturation Glucose 52 L Lactate 3.9 H Vent Mode Mechanical Rate FiO2 100.0 Tidal Volume PEEP 18 Crit Value Called To Dr. diop Crit Value Called By Fariha rt Crit Value Read Back Y Blood Gas Notified Time 2026 Sodium 144.0 Potassium Chloride 109.0 H Carbon Dioxide Anion Gap BUN Creatinine Est GFR ( Amer) Est GFR (Non-Af Amer) POC Glucose (mg/dL) Random Glucose Lactic Acid Calcium Phosphorus Magnesium Total Bilirubin AST ALT Alkaline Phosphatase Ammonia Total Creatine Kinase CK-MB (Mass) Troponin I Troponin I, Quant Total Protein Albumin Globulin Albumin/Globulin Ratio Arterial Blood Potassium Venous Blood Potassium 3.5 L Urine Color Urine Clarity Urine pH Ur Specific [place] Urine Protein Urine Glucose (UA) Urine Ketones Urine Blood Urine Nitrate Urine Bilirubin Urine Urobilinogen Ur Leukocyte Esterase Urine WBC (Auto) Urine RBC (Auto) Ur Squamous Epith Cells Amorphous Sediment Urine Bacteria Urine Opiates Screen Urine Methadone Screen Ur Barbiturates Screen Ur Phencyclidine Scrn Ur Amphetamines Screen U Benzodiazepines Scrn U Oth Cocaine Metabols U Cannabinoids Screen 07/02/17 07/02/17 07/02/17 20:26 20:26 22:36 WBC RBC Hgb Hct MCV MCH MCHC RDW Plt Count MPV Neut % (Auto) Lymph % (Auto) Hunt % (Auto) Eos % (Auto) Baso % (Auto) Neut # Lymph # Hunt # Eos # Baso # Neutrophils % (Manual) Band Neutrophils % Lymphocytes % (Manual) Monocytes % (Manual) Eosinophils % (Manual) Metamyelocytes % Myelocytes % Nucleated RBC % Toxic Granulation Platelet Estimate Large Platelets Poikilocytosis (manual Anisocytosis (manual) Ovalocytes PT INR APTT Puncture Site pCO2 pO2 32 HCO3 ABG pH ABG Total CO2 ABG O2 Saturation ABG Base Excess ABG Hemoglobin ABG Carboxyhemoglobin POC ABG HHb (Measured) ABG Methemoglobin Yaw Test ABG Potassium VBG pH 7.09 L* VBG pCO2 81 H* VBG HCO3 17.8 VBG Total CO2 27.1 VBG O2 Sat (Calc) 65.4 H VBG Base Excess -7.0 L VBG Potassium 3.2 L A-a O2 Difference Respiratory Index Hgb O2 Saturation Glucose 31 L* D Lactate 4.7 H* Vent Mode Mechanical Rate FiO2 100.0 Tidal Volume PEEP 18 Crit Value Called To Dr. diop Crit Value Called By Godfree rt Crit Value Read Back Y Blood Gas Notified Time 2241 Sodium 146 145.0 Potassium 3.5 L Chloride 107 110.0 H Carbon Dioxide 27 Anion Gap 16 BUN 22 H Creatinine 2.8 H Est GFR ( Amer) 21 Est GFR (Non-Af Amer) 17 POC Glucose (mg/dL) Random Glucose 42 L Lactic Acid Calcium 7.3 L Phosphorus 5.3 H Magnesium 1.6 Total Bilirubin 0.9 AST 4880 H ALT 4012 H Alkaline Phosphatase 100 Ammonia 29 Total Creatine Kinase 5456 H CK-MB (Mass) Troponin I Troponin I, Quant Total Protein 5.2 L Albumin 2.8 L Globulin 2.4 Albumin/Globulin Ratio 1.2 Arterial Blood Potassium Venous Blood Potassium 3.2 L Urine Color Urine Clarity Urine pH Ur Specific [place] Urine Protein Urine Glucose (UA) Urine Ketones Urine Blood Urine Nitrate Urine Bilirubin Urine Urobilinogen Ur Leukocyte Esterase Urine WBC (Auto) Urine RBC (Auto) Ur Squamous Epith Cells Amorphous Sediment Urine Bacteria Urine Opiates Screen Urine Methadone Screen Ur Barbiturates Screen Ur Phencyclidine Scrn Ur Amphetamines Screen U Benzodiazepines Scrn U Oth Cocaine Metabols U Cannabinoids Screen 07/02/17 07/02/17 07/03/17 23:03 23:38 00:43 WBC RBC Hgb Hct MCV MCH MCHC RDW Plt Count MPV Neut % (Auto) Lymph % (Auto) Hunt % (Auto) Eos % (Auto) Baso % (Auto) Neut # Lymph # Hunt # Eos # Baso # Neutrophils % (Manual) Band Neutrophils % Lymphocytes % (Manual) Monocytes % (Manual) Eosinophils % (Manual) Metamyelocytes % Myelocytes % Nucleated RBC % Toxic Granulation Platelet Estimate Large Platelets Poikilocytosis (manual Anisocytosis (manual) Ovalocytes PT INR APTT Puncture Site R rad pCO2 60 H pO2 119 H HCO3 18.7 L ABG pH 7.16 L* ABG Total CO2 23.2 ABG O2 Saturation 98.9 H ABG Base Excess -8.0 L ABG Hemoglobin ABG Carboxyhemoglobin POC ABG HHb (Measured) ABG Methemoglobin Yaw Test Pos ABG Potassium 2.9 L VBG pH VBG pCO2 VBG HCO3 VBG Total CO2 VBG O2 Sat (Calc) VBG Base Excess VBG Potassium A-a O2 Difference 519.0 Respiratory Index 4.4 Hgb O2 Saturation Glucose 112 H Lactate 6.1 H* Vent Mode Prvc Mechanical Rate 28 FiO2 100.0 Tidal Volume 450 PEEP 16 Crit Value Called To Dr diop Crit Value Called By Litzy muñoz rt Crit Value Read Back Y Blood Gas Notified Time 115 Sodium 143.0 Potassium Chloride 108.0 H Carbon Dioxide Anion Gap BUN Creatinine Est GFR ( Amer) Est GFR (Non-Af Amer) POC Glucose (mg/dL) < 20 L* 85 Random Glucose Lactic Acid Calcium Phosphorus Magnesium Total Bilirubin AST ALT Alkaline Phosphatase Ammonia Total Creatine Kinase CK-MB (Mass) Troponin I Troponin I, Quant Total Protein Albumin Globulin Albumin/Globulin Ratio Arterial Blood Potassium 2.9 L Venous Blood Potassium Urine Color Urine Clarity Urine pH Ur Specific [place] Urine Protein Urine Glucose (UA) Urine Ketones Urine Blood Urine Nitrate Urine Bilirubin Urine Urobilinogen Ur Leukocyte Esterase Urine WBC (Auto) Urine RBC (Auto) Ur Squamous Epith Cells Amorphous Sediment Urine Bacteria Urine Opiates Screen Urine Methadone Screen Ur Barbiturates Screen Ur Phencyclidine Scrn Ur Amphetamines Screen U Benzodiazepines Scrn U Oth Cocaine Metabols U Cannabinoids Screen 07/03/17 07/03/17 07/03/17 02:49 05:38 06:00 WBC RBC Hgb Hct MCV MCH MCHC RDW Plt Count MPV Neut % (Auto) Lymph % (Auto) Hunt % (Auto) Eos % (Auto) Baso % (Auto) Neut # Lymph # Hunt # Eos # Baso # Neutrophils % (Manual) Band Neutrophils % Lymphocytes % (Manual) Monocytes % (Manual) Eosinophils % (Manual) Metamyelocytes % Myelocytes % Nucleated RBC % Toxic Granulation Platelet Estimate Large Platelets Poikilocytosis (manual Anisocytosis (manual) Ovalocytes PT INR APTT Puncture Site pCO2 pO2 HCO3 ABG pH ABG Total CO2 ABG O2 Saturation ABG Base Excess ABG Hemoglobin ABG Carboxyhemoglobin POC ABG HHb (Measured) ABG Methemoglobin Yaw Test ABG Potassium VBG pH VBG pCO2 VBG HCO3 VBG Total CO2 VBG O2 Sat (Calc) VBG Base Excess VBG Potassium A-a O2 Difference Respiratory Index Hgb O2 Saturation Glucose Lactate Vent Mode Mechanical Rate FiO2 Tidal Volume PEEP Crit Value Called To Crit Value Called By Crit Value Read Back Blood Gas Notified Time Sodium Potassium Chloride Carbon Dioxide Anion Gap BUN Creatinine Est GFR ( Amer) Est GFR (Non-Af Amer) POC Glucose (mg/dL) 95 96 Random Glucose Lactic Acid Calcium Phosphorus Magnesium Total Bilirubin AST ALT Alkaline Phosphatase Ammonia 25 Total Creatine Kinase CK-MB (Mass) Troponin I Troponin I, Quant Total Protein Albumin Globulin Albumin/Globulin Ratio Arterial Blood Potassium Venous Blood Potassium Urine Color Urine Clarity Urine pH Ur Specific [place] Urine Protein Urine Glucose (UA) Urine Ketones Urine Blood Urine Nitrate Urine Bilirubin Urine Urobilinogen Ur Leukocyte Esterase Urine WBC (Auto) Urine RBC (Auto) Ur Squamous Epith Cells Amorphous Sediment Urine Bacteria Urine Opiates Screen Urine Methadone Screen Ur Barbiturates Screen Ur Phencyclidine Scrn Ur Amphetamines Screen U Benzodiazepines Scrn U Oth Cocaine Metabols U Cannabinoids Screen 07/03/17 07/03/17 07/03/17 06:00 06:00 06:00 WBC 3.4 L D RBC 5.50 H Hgb 15.1 Hct 47.0 MCV 85.5 MCH 27.5 MCHC 32.2 L RDW 15.6 H Plt Count 150 MPV 9.9 Neut % (Auto) 82.0 H Lymph % (Auto) 12.5 L Hunt % (Auto) 2.5 Eos % (Auto) 2.5 Baso % (Auto) 0.5 Neut # 2.7 Lymph # 0.4 L Hunt # 0.1 Eos # 0.1 Baso # 0.0 Neutrophils % (Manual) 9 L Band Neutrophils % 59 H* Lymphocytes % (Manual) 19 L Monocytes % (Manual) 4 Eosinophils % (Manual) 5 H Metamyelocytes % Myelocytes % 4 H Nucleated RBC % 2 H Toxic Granulation Present Platelet Estimate Normal Large Platelets Present Poikilocytosis (manual Anisocytosis (manual) Ovalocytes PT 30.5 H* INR 2.6 APTT 31 Puncture Site pCO2 pO2 HCO3 ABG pH ABG Total CO2 ABG O2 Saturation ABG Base Excess ABG Hemoglobin ABG Carboxyhemoglobin POC ABG HHb (Measured) ABG Methemoglobin Yaw Test ABG Potassium VBG pH VBG pCO2 VBG HCO3 VBG Total CO2 VBG O2 Sat (Calc) VBG Base Excess VBG Potassium A-a O2 Difference Respiratory Index Hgb O2 Saturation Glucose Lactate Vent Mode Mechanical Rate FiO2 Tidal Volume PEEP Crit Value Called To Crit Value Called By Crit Value Read Back Blood Gas Notified Time Sodium 142 Potassium 2.8 L Chloride 102 Carbon Dioxide 21 L Anion Gap 22 H BUN 27 H Creatinine 3.6 H Est GFR ( Amer) 15 Est GFR (Non-Af Amer) 13 POC Glucose (mg/dL) Random Glucose 94 Lactic Acid Calcium 6.8 L Phosphorus 5.0 H Magnesium 1.4 L Total Bilirubin 1.1 AST 5295 H ALT 4114 H Alkaline Phosphatase 87 Ammonia Total Creatine Kinase 6338 H CK-MB (Mass) 21.5 H Troponin I 4.8600 H* Troponin I, Quant Total Protein 4.9 L Albumin 2.7 L Globulin 2.1 L Albumin/Globulin Ratio 1.3 Arterial Blood Potassium Venous Blood Potassium Urine Color Urine Clarity Urine pH Ur Specific [place] Urine Protein Urine Glucose (UA) Urine Ketones Urine Blood Urine Nitrate Urine Bilirubin Urine Urobilinogen Ur Leukocyte Esterase Urine WBC (Auto) Urine RBC (Auto) Ur Squamous Epith Cells Amorphous Sediment Urine Bacteria Urine Opiates Screen Urine Methadone Screen Ur Barbiturates Screen Ur Phencyclidine Scrn Ur Amphetamines Screen U Benzodiazepines Scrn U Oth Cocaine Metabols U Cannabinoids Screen 07/03/17 07/03/17 08:10 11:36 WBC RBC Hgb Hct MCV MCH MCHC RDW Plt Count MPV Neut % (Auto) Lymph % (Auto) [place] % (Auto) Eos % (Auto) Baso % (Auto) Neut # Lymph # Hunt # Eos # Baso # Neutrophils % (Manual) Band Neutrophils % Lymphocytes % (Manual) Monocytes % (Manual) Eosinophils % (Manual) Metamyelocytes % Myelocytes % Nucleated RBC % Toxic Granulation Platelet Estimate Large Platelets Poikilocytosis (manual Anisocytosis (manual) Ovalocytes PT INR APTT Puncture Site pCO2 pO2 HCO3 ABG pH ABG Total CO2 ABG O2 Saturation ABG Base Excess ABG Hemoglobin ABG Carboxyhemoglobin POC ABG HHb (Measured) ABG Methemoglobin Yaw Test ABG Potassium VBG pH VBG pCO2 VBG HCO3 VBG Total CO2 VBG O2 Sat (Calc) VBG Base Excess VBG Potassium A-a O2 Difference Respiratory Index Hgb O2 Saturation Glucose Lactate Vent Mode Mechanical Rate FiO2 Tidal Volume PEEP Crit Value Called To Crit Value Called By Crit Value Read Back Blood Gas Notified Time Sodium Potassium Chloride Carbon Dioxide Anion Gap BUN Creatinine Est GFR ( Amer) Est GFR (Non-Af Amer) POC Glucose (mg/dL) 70 68 Random Glucose Lactic Acid Calcium Phosphorus Magnesium Total Bilirubin AST ALT Alkaline Phosphatase Ammonia Total Creatine Kinase CK-MB (Mass) Troponin I Troponin I, Quant Total Protein Albumin Globulin Albumin/Globulin Ratio Arterial Blood Potassium Venous Blood Potassium Urine Color Urine Clarity Urine pH Ur Specific [place] Urine Protein Urine Glucose (UA) Urine Ketones Urine Blood Urine Nitrate Urine Bilirubin Urine Urobilinogen Ur Leukocyte Esterase Urine WBC (Auto) Urine RBC (Auto) Ur Squamous Epith Cells Amorphous Sediment Urine Bacteria Urine Opiates Screen Urine Methadone Screen Ur Barbiturates Screen Ur Phencyclidine Scrn Ur Amphetamines Screen U Benzodiazepines Scrn U Oth Cocaine Metabols U Cannabinoids Screen Assessment & Plan - Assessment and Plan (Free Text) Assessment: This is a 66yF with hx of polysubstance abuse including morphine po, xanx, antidepressant, and hx of cocaine abuse 30yrs, depression, bipolar disorder, chronic pain brought to the ER after being found down by daughter. 1. Respiratory Failure s/p intubation and MV 2. Elevated Troponins 3. Septic Shock 4. Aspiration PNA 5. Transaminitis 6. ARF 7. Upper GI Bleed reported Plan: -Continue supportive care -No active GI bleed, Hgb stable after 2U PRBCs and FFP, continue to monitor Hgb -No plan for emergent endoscopic evaluation -No signs of Upper GI Bleed with bilious output through OGT -Recommend discontinuing IV Protonic drip and IV Octreotide -Continue PPI for stress prophylaxis -Transaminitis-multifactorial hypotension/septic shock, polysubstance abuse, will order Abd US Duplex to r/o venous occlusion -Monitor LFTs -Will order Hepatitis panel and autoimmune workup -Will continue to follow pt closely <Giovany Rowan MD - Last Filed: 07/03/17 16:15> Meds - Medications Medications: Current Medications Albuterol/Ipratropium (Duoneb 3 Mg/0.5 Mg (3 Ml) Ud) 3 ml INH RQ6 [facility] Last Admin: 07/03/17 13:53 Dose: 3 ml Budesonide (Pulmicort Respules) 0.5 mg INH RQ12 [facility] Last Admin: 07/03/17 13:53 Dose: 0.5 mg Phenylephrine HCl 30 mg/ (Sodium Chloride) 253 mls @ 50.6 mls/hr IV .Q5H PRN; Protocol; 100 MCG/MIN PRN Reason: TITRATE PER MD ORDER Last Titration: 07/03/17 15:30 Dose: 170 mcg/min, 86.02 mls/hr Norepinephrine Bitartrate 8 mg (/ Sodium Chloride) 258 mls @ 7.74 mls/hr IV .Q24H PRN; Protocol; 4 MCG/MIN PRN Reason: TITRATE PER MD ORDER Last Admin: 07/03/17 07:49 Dose: 19.37 mcg/min, 37.48 mls/hr Piperacillin Sod/Tazobactam Sod (Zosyn 2.25 Gm Iv Premix) 2.25 gm in 50 mls @ 100 mls/hr IVPB Q8H [facility] Last Admin: 07/03/17 15:34 Dose: 100 mls/hr Sodium Bicarbonate 150 meq/ (Dextrose) 1,150 mls @ 150 mls/hr IV .Q7H40M [facility] Last Admin: 07/03/17 14:17 Dose: 150 mls/hr Dopamine HCl/Dextrose (Dopamine 400mg/250ml D5w) 400 mg in 250 mls @ 6.379 mls/ hr IV .Q24H PRN; Protocol; 2 MCG/KG/MIN PRN Reason: TITRATE PER MD ORDER Last Titration: 07/03/17 13:30 Dose: 10 mcg/kg/min, 31.893 mls/hr Vasopressin 40 units/ Sodium (Chloride) 42 mls @ 2.52 mls/hr IV .[id number] [facility] PRN Reason: 0.04 UNITS/MIN Last Admin: 07/03/17 13:31 Dose: 2.52 mls/hr Ibuprofen 400 mg/ Sodium (Chloride) 104 mls @ 104 mls/hr IVPB Q6 PRN PRN Reason: Inflammation Last Admin: 07/03/17 13:55 Dose: 104 mls/hr Influenza Virus Vaccine (Afluria) 45 mcg IM .ONCE ONE Stop: 07/05/17 10:01 Pantoprazole Sodium (Protonix Inj) 40 mg IVP DAILY [facility] Pneumococcal Polyvalent Vaccine (Pneumovax 23 Vaccine) 0.5 ml IM .ONCE ONE Stop: 07/05/17 10:01 Results - Vital Signs Recent Vital Signs: Last Vital Signs Temp 100 F H 07/03/17 15:00 Pulse 131 H 07/03/17 15:00 Resp 28 H 07/03/17 15:00 BP 64/40 L 07/03/17 15:00 Pulse Ox 99 07/03/17 13:31 - Labs Result Diagrams: 07/03/17 06:00 07/03/17 06:00 Labs: Laboratory Results - last 24 hr 07/02/17 07/02/17 07/02/17 16:33 16:33 16:33 WBC 2.5 L D RBC 6.09 H Hgb 16.6 H D Hct 52.7 H MCV 86.6 MCH 27.3 MCHC 31.5 L RDW 15.7 H Plt Count 226 MPV 9.0 Neut % (Auto) Lymph % (Auto) Hunt % (Auto) Eos % (Auto) Baso % (Auto) Neut # Lymph # Hunt # Eos # Baso # Neutrophils % (Manual) Band Neutrophils % Lymphocytes % (Manual) Monocytes % (Manual) Eosinophils % (Manual) Metamyelocytes % Myelocytes % Nucleated RBC % Toxic Granulation Platelet Estimate Large Platelets Poikilocytosis (manual Anisocytosis (manual) Ovalocytes PT INR APTT Puncture Site pCO2 pO2 HCO3 ABG pH ABG Total CO2 ABG O2 Saturation ABG Base Excess ABG Hemoglobin ABG Carboxyhemoglobin POC ABG HHb (Measured) ABG Methemoglobin Yaw Test ABG Potassium VBG pH VBG pCO2 VBG HCO3 VBG Total CO2 VBG O2 Sat (Calc) VBG Base Excess VBG Potassium A-a O2 Difference Respiratory Index Hgb O2 Saturation Glucose Lactate Vent Mode Mechanical Rate FiO2 Tidal Volume PEEP Crit Value Called To Crit Value Called By Crit Value Read Back Blood Gas Notified Time Sodium 142 Potassium 3.9 Chloride 111 H Carbon Dioxide 21 L Anion Gap 14 BUN 20 H Creatinine 2.5 H Est GFR ( Amer) 23 Est GFR (Non-Af Amer) 19 POC Glucose (mg/dL) Random Glucose 58 L Lactic Acid 3.0 H Calcium 7.3 L Phosphorus 5.6 H Magnesium 1.7 Total Bilirubin 0.9 AST 3894 H ALT 4119 H Alkaline Phosphatase 110 Ammonia Total Creatine Kinase 6070 H CK-MB (Mass) 33.1 H Troponin I Troponin I, Quant 1.9000 H* Total Protein 5.6 L Albumin 3.0 L Globulin 2.6 Albumin/Globulin Ratio 1.1 Arterial Blood Potassium Venous Blood Potassium 07/02/17 07/02/17 07/02/17 17:25 20:21 20:26 WBC RBC Hgb Hct MCV MCH MCHC RDW Plt Count MPV Neut % (Auto) Lymph % (Auto) Hunt % (Auto) Eos % (Auto) Baso % (Auto) Neut # Lymph # Hunt # Eos # Baso # Neutrophils % (Manual) Band Neutrophils % Lymphocytes % (Manual) Monocytes % (Manual) Eosinophils % (Manual) Metamyelocytes % Myelocytes % Nucleated RBC % Toxic Granulation Platelet Estimate Large Platelets Poikilocytosis (manual Anisocytosis (manual) Ovalocytes PT 29.9 H* INR 2.6 APTT 33 Puncture Site Rba pCO2 84 H* pO2 58 L 25 L HCO3 12.3 L ABG pH 6.95 L* ABG Total CO2 21.1 L ABG O2 Saturation 90.1 L ABG Base Excess -15.8 L ABG Hemoglobin 17.1 ABG Carboxyhemoglobin 1.3 POC ABG HHb (Measured) 9.7 H ABG Methemoglobin 0.9 Yaw Test Na ABG Potassium VBG pH 7.06 L* VBG pCO2 90 H* VBG HCO3 17.5 VBG Total CO2 28.3 H VBG O2 Sat (Calc) 48.4 VBG Base Excess -6.9 L VBG Potassium 3.5 L A-a O2 Difference 550.0 Respiratory Index 9.5 Hgb O2 Saturation 88.2 L Glucose 52 L Lactate 3.9 H Vent Mode Prvc Mechanical Rate 20 FiO2 100.0 100.0 Tidal Volume 470 PEEP 14 18 Crit Value Called To [facility] nurse abel diop Crit Value Called By Fariha rt Fariha rt Crit Value Read Back Y Y Blood Gas Notified Time 1728 2026 Sodium 144.0 Potassium Chloride 109.0 H Carbon Dioxide Anion Gap BUN Creatinine Est GFR ( Amer) Est GFR (Non-Af Amer) POC Glucose (mg/dL) Random Glucose Lactic Acid Calcium Phosphorus Magnesium Total Bilirubin AST ALT Alkaline Phosphatase Ammonia Total Creatine Kinase CK-MB (Mass) Troponin I Troponin I, Quant Total Protein Albumin Globulin Albumin/Globulin Ratio Arterial Blood Potassium Venous Blood Potassium 3.5 L 07/02/17 07/02/17 07/02/17 20:26 20:26 20:26 WBC 1.0 L* D RBC 5.91 H Hgb 16.2 H Hct 50.4 H MCV 85.2 MCH 27.4 MCHC 32.2 L RDW 15.7 H Plt Count 188 MPV 9.1 Neut % (Auto) 64.8 Lymph % (Auto) 29.6 Hunt % (Auto) 5.4 Eos % (Auto) 0.1 Baso % (Auto) 0.1 Neut # 0.6 L Lymph # 0.3 L Hunt # 0.1 Eos # 0.0 Baso # 0.0 Neutrophils % (Manual) 41 L Band Neutrophils % 17 H* Lymphocytes % (Manual) 35 Monocytes % (Manual) 6 Eosinophils % (Manual) Metamyelocytes % 1 H Myelocytes % Nucleated RBC % 2 H Toxic Granulation Platelet Estimate Normal Large Platelets Present Poikilocytosis (manual Slight Anisocytosis (manual) Slight Ovalocytes Slight PT INR APTT Puncture Site pCO2 pO2 HCO3 ABG pH ABG Total CO2 ABG O2 Saturation ABG Base Excess ABG Hemoglobin ABG Carboxyhemoglobin POC ABG HHb (Measured) ABG Methemoglobin Yaw Test ABG Potassium VBG pH VBG pCO2 VBG HCO3 VBG Total CO2 VBG O2 Sat (Calc) VBG Base Excess VBG Potassium A-a O2 Difference Respiratory Index Hgb O2 Saturation Glucose Lactate Vent Mode Mechanical Rate FiO2 Tidal Volume PEEP Crit Value Called To Crit Value Called By Crit Value Read Back Blood Gas Notified Time Sodium 146 Potassium 3.5 L Chloride 107 Carbon Dioxide 27 Anion Gap 16 BUN 22 H Creatinine 2.8 H Est GFR ( Amer) 21 Est GFR (Non-Af Amer) 17 POC Glucose (mg/dL) Random Glucose 42 L Lactic Acid Calcium 7.3 L Phosphorus 5.3 H Magnesium 1.6 Total Bilirubin 0.9 AST 4880 H ALT 4012 H Alkaline Phosphatase 100 Ammonia 29 Total Creatine Kinase 5456 H CK-MB (Mass) Troponin I Troponin I, Quant Total Protein 5.2 L Albumin 2.8 L Globulin 2.4 Albumin/Globulin Ratio 1.2 Arterial Blood Potassium Venous Blood Potassium 07/02/17 07/02/17 07/02/17 22:36 23:03 23:38 WBC RBC Hgb Hct MCV MCH MCHC RDW Plt Count MPV Neut % (Auto) Lymph % (Auto) Hunt % (Auto) Eos % (Auto) Baso % (Auto) Neut # Lymph # Hunt # Eos # Baso # Neutrophils % (Manual) Band Neutrophils % Lymphocytes % (Manual) Monocytes % (Manual) Eosinophils % (Manual) Metamyelocytes % Myelocytes % Nucleated RBC % Toxic Granulation Platelet Estimate Large Platelets Poikilocytosis (manual Anisocytosis (manual) Ovalocytes PT INR APTT Puncture Site pCO2 pO2 32 HCO3 ABG pH ABG Total CO2 ABG O2 Saturation ABG Base Excess ABG Hemoglobin ABG Carboxyhemoglobin POC ABG HHb (Measured) ABG Methemoglobin Yaw Test ABG Potassium VBG pH 7.09 L* VBG pCO2 81 H* VBG HCO3 17.8 VBG Total CO2 27.1 VBG O2 Sat (Calc) 65.4 H VBG Base Excess -7.0 L VBG Potassium 3.2 L A-a O2 Difference Respiratory Index Hgb O2 Saturation Glucose 31 L* D Lactate 4.7 H* Vent Mode Mechanical Rate FiO2 100.0 Tidal Volume PEEP 18 Crit Value Called To Dr. diop Crit Value Called By Fariha vyas Crit Value Read Back Y Blood Gas Notified Time 2241 Sodium 145.0 Potassium Chloride 110.0 H Carbon Dioxide Anion Gap BUN Creatinine Est GFR ( Amer) Est GFR (Non-Af Amer) POC Glucose (mg/dL) < 20 L* 85 Random Glucose Lactic Acid Calcium Phosphorus Magnesium Total Bilirubin AST ALT Alkaline Phosphatase Ammonia Total Creatine Kinase CK-MB (Mass) Troponin I Troponin I, Quant Total Protein Albumin Globulin Albumin/Globulin Ratio Arterial Blood Potassium Venous Blood Potassium 3.2 L 07/03/17 07/03/17 07/03/17 00:43 02:49 05:38 WBC RBC Hgb Hct MCV MCH MCHC RDW Plt Count MPV Neut % (Auto) Lymph % (Auto) Hunt % (Auto) Eos % (Auto) Baso % (Auto) Neut # Lymph # Hunt # Eos # Baso # Neutrophils % (Manual) Band Neutrophils % Lymphocytes % (Manual) Monocytes % (Manual) Eosinophils % (Manual) Metamyelocytes % Myelocytes % Nucleated RBC % Toxic Granulation Platelet Estimate Large Platelets Poikilocytosis (manual Anisocytosis (manual) Ovalocytes PT INR APTT Puncture Site R rad pCO2 60 H pO2 119 H HCO3 18.7 L ABG pH 7.16 L* ABG Total CO2 23.2 ABG O2 Saturation 98.9 H ABG Base Excess -8.0 L ABG Hemoglobin ABG Carboxyhemoglobin POC ABG HHb (Measured) ABG Methemoglobin Yaw Test Pos ABG Potassium 2.9 L VBG pH VBG pCO2 VBG HCO3 VBG Total CO2 VBG O2 Sat (Calc) VBG Base Excess VBG Potassium A-a O2 Difference 519.0 Respiratory Index 4.4 Hgb O2 Saturation Glucose 112 H Lactate 6.1 H* Vent Mode Prvc Mechanical Rate 28 FiO2 100.0 Tidal Volume 450 PEEP 16 Crit Value Called To Dr diop Crit Value Called By Litzy muñoz rt Crit Value Read Back Y Blood Gas Notified Time 115 Sodium 143.0 Potassium Chloride 108.0 H Carbon Dioxide Anion Gap BUN Creatinine Est GFR ( Amer) Est GFR (Non-Af Amer) POC Glucose (mg/dL) 95 96 Random Glucose Lactic Acid Calcium Phosphorus Magnesium Total Bilirubin AST ALT Alkaline Phosphatase Ammonia Total Creatine Kinase CK-MB (Mass) Troponin I Troponin I, Quant Total Protein Albumin Globulin Albumin/Globulin Ratio Arterial Blood Potassium 2.9 L Venous Blood Potassium 07/03/17 07/03/17 07/03/17 06:00 06:00 06:00 WBC 3.4 L D RBC 5.50 H Hgb 15.1 Hct 47.0 MCV 85.5 MCH 27.5 MCHC 32.2 L RDW 15.6 H Plt Count 150 MPV 9.9 Neut % (Auto) 82.0 H Lymph % (Auto) 12.5 L Hunt % (Auto) 2.5 Eos % (Auto) 2.5 Baso % (Auto) 0.5 Neut # 2.7 Lymph # 0.4 L Hunt # 0.1 Eos # 0.1 Baso # 0.0 Neutrophils % (Manual) 9 L Band Neutrophils % 59 H* Lymphocytes % (Manual) 19 L Monocytes % (Manual) 4 Eosinophils % (Manual) 5 H Metamyelocytes % Myelocytes % 4 H Nucleated RBC % 2 H Toxic Granulation Present Platelet Estimate Normal Large Platelets Present Poikilocytosis (manual Anisocytosis (manual) Ovalocytes PT INR APTT Puncture Site pCO2 pO2 HCO3 ABG pH ABG Total CO2 ABG O2 Saturation ABG Base Excess ABG Hemoglobin ABG Carboxyhemoglobin POC ABG HHb (Measured) ABG Methemoglobin Yaw Test ABG Potassium VBG pH VBG pCO2 VBG HCO3 VBG Total CO2 VBG O2 Sat (Calc) VBG Base Excess VBG Potassium A-a O2 Difference Respiratory Index Hgb O2 Saturation Glucose Lactate Vent Mode Mechanical Rate FiO2 Tidal Volume PEEP Crit Value Called To Crit Value Called By Crit Value Read Back Blood Gas Notified Time Sodium 142 Potassium 2.8 L Chloride 102 Carbon Dioxide 21 L Anion Gap 22 H BUN 27 H Creatinine 3.6 H Est GFR ( Amer) 15 Est GFR (Non-Af Amer) 13 POC Glucose (mg/dL) Random Glucose 94 Lactic Acid Calcium 6.8 L Phosphorus 5.0 H Magnesium 1.4 L Total Bilirubin 1.1 AST 5295 H ALT 4114 H Alkaline Phosphatase 87 Ammonia 25 Total Creatine Kinase 6338 H CK-MB (Mass) 21.5 H Troponin I 4.8600 H* Troponin I, Quant Total Protein 4.9 L Albumin 2.7 L Globulin 2.1 L Albumin/Globulin Ratio 1.3 Arterial Blood Potassium Venous Blood Potassium 07/03/17 07/03/17 07/03/17 06:00 08:10 11:36 WBC RBC Hgb Hct MCV MCH MCHC RDW Plt Count MPV Neut % (Auto) Lymph % (Auto) Hunt % (Auto) Eos % (Auto) Baso % (Auto) Neut # Lymph # Hunt # Eos # Baso # Neutrophils % (Manual) Band Neutrophils % Lymphocytes % (Manual) Monocytes % (Manual) Eosinophils % (Manual) Metamyelocytes % Myelocytes % Nucleated RBC % Toxic Granulation Platelet Estimate Large Platelets Poikilocytosis (manual Anisocytosis (manual) Ovalocytes PT 30.5 H* INR 2.6 APTT 31 Puncture Site pCO2 pO2 HCO3 ABG pH ABG Total CO2 ABG O2 Saturation ABG Base Excess ABG Hemoglobin ABG Carboxyhemoglobin POC ABG HHb (Measured) ABG Methemoglobin Yaw Test ABG Potassium VBG pH VBG pCO2 VBG HCO3 VBG Total CO2 VBG O2 Sat (Calc) VBG Base Excess VBG Potassium A-a O2 Difference Respiratory Index Hgb O2 Saturation Glucose Lactate Vent Mode Mechanical Rate FiO2 Tidal Volume PEEP Crit Value Called To Crit Value Called By Crit Value Read Back Blood Gas Notified Time Sodium Potassium Chloride Carbon Dioxide Anion Gap BUN Creatinine Est GFR ( Amer) Est GFR (Non-Af Amer) POC Glucose (mg/dL) 70 68 Random Glucose Lactic Acid Calcium Phosphorus Magnesium Total Bilirubin AST ALT Alkaline Phosphatase Ammonia Total Creatine Kinase CK-MB (Mass) Troponin I Troponin I, Quant Total Protein Albumin Globulin Albumin/Globulin Ratio Arterial Blood Potassium Venous Blood Potassium 07/03/17 07/03/17 07/03/17 13:17 14:54 16:00 WBC RBC Hgb Hct MCV MCH MCHC RDW Plt Count MPV Neut % (Auto) Lymph % (Auto) Hunt % (Auto) Eos % (Auto) Baso % (Auto) Neut # Lymph # Hunt # Eos # Baso # Neutrophils % (Manual) Band Neutrophils % Lymphocytes % (Manual) Monocytes % (Manual) Eosinophils % (Manual) Metamyelocytes % Myelocytes % Nucleated RBC % Toxic Granulation Platelet Estimate Large Platelets Poikilocytosis (manual Anisocytosis (manual) Ovalocytes PT INR APTT Puncture Site pCO2 pO2 HCO3 ABG pH ABG Total CO2 ABG O2 Saturation ABG Base Excess ABG Hemoglobin ABG Carboxyhemoglobin POC ABG HHb (Measured) ABG Methemoglobin Yaw Test ABG Potassium VBG pH VBG pCO2 VBG HCO3 VBG Total CO2 VBG O2 Sat (Calc) VBG Base Excess VBG Potassium A-a O2 Difference Respiratory Index Hgb O2 Saturation Glucose Lactate Vent Mode Mechanical Rate FiO2 Tidal Volume PEEP Crit Value Called To Crit Value Called By Crit Value Read Back Blood Gas Notified Time Sodium Potassium Chloride Carbon Dioxide Anion Gap BUN Creatinine Est GFR ( Amer) Est GFR (Non-Af Amer) POC Glucose (mg/dL) 70 91 89 Random Glucose Lactic Acid Calcium Phosphorus Magnesium Total Bilirubin AST ALT Alkaline Phosphatase Ammonia Total Creatine Kinase CK-MB (Mass) Troponin I Troponin I, Quant Total Protein Albumin Globulin Albumin/Globulin Ratio Arterial Blood Potassium Venous Blood Potassium Attending/Attestation - Attestation I have personally seen and examined this patient.: Yes I have fully participated in the care of the patient.: Yes I have reviewed all pertinent clinical information: Yes Notes (Text): 07/03/17 16:08 Patient seen in MICU this am with GI fellow on rounds. This is a 66 year old F with hx of polysubstance abuse including cocaine, morphine, xanax, antidepressant with history of depression, bipolar disorder, chronic pain brought to the ER after being found unconscious by daughter. She was intubated in the field and as per daughter there was bloody aspirate through mouth. In ER she was reintubated and started on pressors. She is currently on two pressor support with elevated troponins and aspiration PNA s/p bronchoscopy. She recieved two units PRBC in ER and has had an appropriate response. There is no blood in NG tube. No s/s of cirrhosis or portal HTn and hence octreotide gtt can be discontinued. Can transition PPI gtt to NGT for stress prophylaxis. No s/ s of overt GI bleeding and hence no urgent indication of endoscopic evaluation. will send hepatitis profile and auto immune serologies although abnormal LFt is likely due to ischemic hepatitis. Supportive care as per MICU. Will follow serologies. 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
[2017-07-03] MEDS: DOPamine 400mg/250ml D5W 400 MG/250 ML BAG IV PRN ×3 (13:17→22:59)
[2017-07-03] MEDS ORDERED: MethylPREDNISolone 40 mg Vial IVP STA (14:34)
--- NOTE | 2017-07-03 15:56 | CARD ---
APPROVED REPORT EKG Measurement Heart [id number] <Conclusion> Sinus tachycardia Prolonged QT Abnormal ECG
--- NOTE | 2017-07-03 22:16 | US ---
EXAM: US Abdomen Complete EXAM DATE/TIME: 07/03/2017 12:22 PM CLINICAL HISTORY: 66 years old, female; Abnormal findings; Abnormal lab test; Other: Transaminitis TECHNIQUE: Real-time ultrasound of the abdomen (complete) with image documentation. COMPARISON: There are no prior studies for comparison. FINDINGS: Liver: No focal lesions are seen in the liver. Texture is mildly heterogeneous. Right lobe is prominent. There is hepatopedal flow in the main portal vein. Gallbladder: Gallbladder is not visualized. Common bile duct: Common bile duct measures 8.7 mm in diameter. Pancreas: Pancreas is partially obscured by bowel gas. Visualized portion is echogenic. Kidneys: Right kidney is unremarkable. Left kidney is difficult to visualize. There is no pelvocaliectasis. Spleen: Spleen is unremarkable. Aorta: Visualized portions of the aorta and inferior vena cava are unremarkable. Inferior vena cava: See above. Free fluid: There is trace free fluid. Pleural space: There is a small right pleural effusion. IMPRESSION: Nonvisualization of the gallbladder with prominent common duct; mildly heterogeneous echotexture to the liver, no focal abnormality; limited visualization of pancreas; right pleural effusion and trace ascites
--- NOTE | 2017-07-03 23:37 | CP.PCM.PN ---
Subjective - Date & Time of Evaluation Date of Evaluation: 07/03/17 Time of Evaluation: 22:00 Objective - Vital Signs/Intake and Output Vital Signs (last 24 hours): Temp Pulse Resp BP Pulse Ox 95.5 F L 123 H 28 H 88/63 L 74 L 07/03/17 20:00 07/03/17 22:15 07/03/17 22:15 07/03/17 22:59 07/03/17 22:15 Intake and Output: 07/03/17 07/04/17 18:59 06:59 Intake Total 4870.4 1875.0 Output Total 10 0 Balance 4860.4 1875.0 - Medications Medications: Current Medications Albuterol/Ipratropium (Duoneb 3 Mg/0.5 Mg (3 Ml) Ud) 3 ml INH RQ6 [facility] Last Admin: 07/03/17 13:53 Dose: 3 ml Budesonide (Pulmicort Respules) 0.5 mg INH RQ12 [facility] Last Admin: 07/03/17 13:53 Dose: 0.5 mg Phenylephrine HCl 30 mg/ (Sodium Chloride) 253 mls @ 50.6 mls/hr IV .Q5H PRN; Protocol; 100 MCG/MIN PRN Reason: TITRATE PER MD ORDER Last Admin: 07/03/17 21:07 Dose: 177.86 mcg/min, 90 mls/hr Norepinephrine Bitartrate 8 mg (/ Sodium Chloride) 258 mls @ 7.74 mls/hr IV .Q24H PRN; Protocol; 4 MCG/MIN PRN Reason: TITRATE PER MD ORDER Last Admin: 07/03/17 22:54 Dose: 19.37 mcg/min, 37.48 mls/hr Piperacillin Sod/Tazobactam Sod (Zosyn 2.25 Gm Iv Premix) 2.25 gm in 50 mls @ 100 mls/hr IVPB Q8H [facility] Last Admin: 07/03/17 22:50 Dose: 100 mls/hr Sodium Bicarbonate 150 meq/ (Dextrose) 1,150 mls @ 150 mls/hr IV .[id number] [facility] Last Admin: 07/03/17 22:07 Dose: 150 mls/hr Dopamine HCl/Dextrose (Dopamine 400mg/250ml D5w) 400 mg in 250 mls @ 6.379 mls/ hr IV .Q24H PRN; Protocol; 2 MCG/KG/MIN PRN Reason: TITRATE PER MD ORDER Last Admin: 07/03/17 22:59 Dose: 20 mcg/kg/min, 63.787 mls/hr Vasopressin 40 units/ Sodium (Chloride) 42 mls @ 2.52 mls/hr IV .[id number] STEPHANE PRN Reason: 0.04 UNITS/MIN Last Admin: 07/03/17 13:31 Dose: 2.52 mls/hr Ibuprofen 400 mg/ Sodium (Chloride) 104 mls @ 104 mls/hr IVPB Q6 PRN PRN Reason: Inflammation Last Admin: 07/03/17 13:55 Dose: 104 mls/hr Influenza Virus Vaccine (Afluria) 45 mcg IM .ONCE ONE Stop: 07/05/17 10:01 Pantoprazole Sodium (Protonix Inj) 40 mg IVP DAILY STEPHANE Pneumococcal Polyvalent Vaccine (Pneumovax 23 Vaccine) 0.5 ml IM .ONCE ONE Stop: 07/05/17 10:01 - Labs Labs: 07/03/17 06:00 07/03/17 06:00 PT 30.5 SECONDS (9.7-12.2) H* 07/03/17 06:00 INR 2.6 07/03/17 06:00 APTT 31 SECONDS (21-34) 07/03/17 06:00
[2017-07-04] MEDS: Phenylephrine 30 MG in Sodium Chloride 0.9% 250 ML IV PRN (00:12)
[2017-07-04 00:13] VITALS: BP 94/39
[2017-07-04 00:19] VITALS: PULSE 67; RESP 25; TEMP 97.2; O2SAT 36
--- NOTE | 2017-07-04 22:58 | CP.PCM.DIS ---
Provider - Provider Date of Admission: 07/02/17 12:07 Attending physician: Bora Ball MD Hospital Course - Lab Results Lab Results: Micro Results 07/02/17 19:00 Naris MRSA Culture (Admit) - Final MRSA NOT DETECTED 07/02/17 16:27 Bronchial Washings Bronchial Culture - Preliminary Gram Negative [place] 07/02/17 15:00 Urine Urine Culture - Final No Growth (<1,000 CFU/ML) Most Recent Lab Values WBC 3.4 K/uL (4.8-10.8) L D 07/03/17 06:00 RBC 5.50 Mil/uL (3.80-5.20) H 07/03/17 06:00 Hgb 15.1 g/dL (11.0-16.0) 07/03/17 06:00 Hct 47.0 % (34.0-47.0) 07/03/17 06:00 MCV 85.5 fL (81.0-99.0) 07/03/17 06:00 MCH 27.5 pg (27.0-31.0) 07/03/17 06:00 MCHC 32.2 g/dL (33.0-37.0) L 07/03/17 06:00 RDW 15.6 % (11.5-14.5) H 07/03/17 06:00 Plt Count 150 K/uL (130-400) 07/03/17 06:00 MPV 9.9 fL (7.2-11.7) 07/03/17 06:00 Neut % (Auto) 82.0 % (50.0-75.0) H 07/03/17 06:00 Lymph % (Auto) 12.5 % (20.0-40.0) L 07/03/17 06:00 [place] % (Auto) 2.5 % (0.0-10.0) 07/03/17 06:00 Eos % (Auto) 2.5 % (0.0-4.0) 07/03/17 06:00 Baso % (Auto) 0.5 % (0.0-2.0) 07/03/17 06:00 Neut # 2.7 K/uL (1.8-7.0) 07/03/17 06:00 Lymph # 0.4 K/uL (1.0-4.3) L 07/03/17 06:00 [place] # 0.1 K/uL (0.0-0.8) 07/03/17 06:00 Eos # 0.1 K/uL (0.0-0.7) 07/03/17 06:00 Baso # 0.0 K/uL (0.0-0.2) 07/03/17 06:00 Neutrophils % (Manual) 9 % (50-75) L 07/03/17 06:00 Band Neutrophils % 59 % (0-2) H* 07/03/17 06:00 Lymphocytes % (Manual) 19 % (20-40) L 07/03/17 06:00 Monocytes % (Manual) 4 % (0-10) 07/03/17 06:00 Eosinophils % (Manual) 5 % (0-4) H 07/03/17 06:00 Metamyelocytes % 1 % (0-0) H 07/02/17 20:26 Myelocytes % 4 % (0-0) H 07/03/17 06:00 Nucleated RBC % 2 % (0-0) H 07/03/17 06:00 Toxic Granulation Present 07/03/17 06:00 Platelet Estimate Normal (NORMAL) 07/03/17 06:00 Plt Clumps, EDTA Present 07/02/17 11:32 Large Platelets Present 07/03/17 06:00 Poikilocytosis (manual Slight 07/02/17 20:26 Anisocytosis (manual) Slight 07/02/17 20:26 Microcytosis (manual) Slight 07/02/17 11:32 Macrocytosis (manual) Slight 07/02/17 11:32 Spherocytes Slight 07/02/17 11:32 Ovalocytes Slight 07/02/17 20:26 PT 30.5 SECONDS (9.7-12.2) H* 07/03/17 06:00 INR 2.6 07/03/17 06:00 APTT 31 SECONDS (21-34) 07/03/17 06:00 Puncture Site R rad 07/03/17 00:43 pCO2 60 mm/Hg (35-45) H 07/03/17 00:43 pO2 119 mm/Hg (80-100) H 07/03/17 00:43 HCO3 18.7 mmol/L (21-28) L 07/03/17 00:43 ABG pH 7.16 (7.35-7.45) L* 07/03/17 00:43 ABG Total CO2 23.2 mmol/L (22-28) 07/03/17 00:43 ABG O2 Saturation 98.9 % (95-98) H 07/03/17 00:43 ABG Base Excess -8.0 mmol/L (-2.0-3.0) L 07/03/17 00:43 ABG Hemoglobin 17.1 g/dL (11.7-17.4) 07/02/17 17:25 ABG Carboxyhemoglobin 1.3 % (0.5-1.5) 07/02/17 17:25 POC ABG HHb (Measured) 9.7 % (0.0-5.0) H 07/02/17 17:25 ABG Methemoglobin 0.9 % (0.0-3.0) 07/02/17 17:25 Yaw Test Pos 07/03/17 00:43 ABG Potassium 2.9 mmol/L (3.6-5.2) L 07/03/17 00:43 VBG pH 7.09 (7.32-7.43) L* 07/02/17 22:36 VBG pCO2 81 mmHg (40-60) H* 07/02/17 22:36 VBG HCO3 17.8 mmol/L 07/02/17 22:36 VBG Total CO2 27.1 mmol/L (22-28) 07/02/17 22:36 VBG O2 Sat (Calc) 65.4 % (40-65) H 07/02/17 22:36 VBG Base Excess -7.0 mmol/L (0.0-2.0) L 07/02/17 22:36 VBG Potassium 3.2 mmol/L (3.6-5.2) L 07/02/17 22:36 A-a O2 Difference 519.0 mm/Hg 07/03/17 00:43 Respiratory Index 4.4 07/03/17 00:43 Hgb O2 Saturation 88.2 % (95.0-98.0) L 07/02/17 17:25 Sodium 143.0 mmol/l (132-148) 07/03/17 00:43 Chloride 108.0 mmol/L (98-107) H 07/03/17 00:43 Glucose 112 mg/dl (65-105) H 07/03/17 00:43 Lactate 6.1 mmol/L (0.7-2.1) H* 07/03/17 00:43 Vent Mode Prvc 07/03/17 00:43 Mechanical Rate 28 07/03/17 00:43 FiO2 100.0 % 07/03/17 00:43 Tidal Volume 450 07/03/17 00:43 PEEP 16 07/03/17 00:43 Crit Value Called To Dr diop 07/03/17 00:43 Crit Value Called By Litzy muñoz rt 07/03/17 00:43 Crit Value Read Back Y 07/03/17 00:43 Blood Gas Notified Time 115 07/03/17 00:43 Sodium 142 mmol/L (132-148) 07/03/17 06:00 Potassium 2.8 mmol/L (3.6-5.2) L 07/03/17 06:00 Chloride 102 mmol/L (98-107) 07/03/17 06:00 Carbon Dioxide 21 mmol/L (22-30) L 07/03/17 06:00 Anion Gap 22 (10-20) H 07/03/17 06:00 BUN 27 mg/dL (7-17) H 07/03/17 06:00 Creatinine 3.6 MG/DL (0.7-1.2) H 07/03/17 06:00 Est GFR ( Amer) 15 07/03/17 06:00 Est GFR (Non-Af Amer) 13 07/03/17 06:00 POC Glucose (mg/dL) 81 mg/dL (65-110) 07/03/17 23:56 Random Glucose 94 mg/dL (65-105) 07/03/17 06:00 Lactic Acid 3.0 mmol/L (0.7-2.1) H 07/02/17 16:33 Calcium 6.8 mg/dl (8.6-10.4) L 07/03/17 06:00 Phosphorus 5.0 mg/dL (2.5-4.5) H 07/03/17 06:00 Magnesium 1.4 mg/dL (1.6-2.3) L 07/03/17 06:00 Total Bilirubin 1.1 mg/dL (0.2-1.3) 07/03/17 06:00 AST 5295 U/L (14-36) H 07/03/17 06:00 ALT 4114 U/L (9-52) H 07/03/17 06:00 Alkaline Phosphatase 87 U/L (38-126) 07/03/17 06:00 Ammonia 25 umol/L (9-33) 07/03/17 06:00 Total Creatine Kinase 6338 U/L (30-135) H 07/03/17 06:00 CK-MB (Mass) 21.5 ng/mL (0.0-3.38) H 07/03/17 06:00 Troponin I 4.8600 ng/mL (0.00-0.120) H* 07/03/17 06:00 Troponin I, Quant 1.9000 ng/mL (0.00-0.120) H* 07/02/17 16:33 Total Protein 4.9 g/dL (6.3-8.3) L 07/03/17 06:00 Albumin 2.7 g/dL (3.5-5.0) L 07/03/17 06:00 Globulin 2.1 gm/dL (2.2-3.9) L 07/03/17 06:00 Albumin/Globulin Ratio 1.3 (1.0-2.1) 07/03/17 06:00 Arterial Blood Potassium 2.9 mmol/L (3.6-5.2) L 07/03/17 00:43 Venous Blood Potassium 3.2 mmol/L (3.6-5.2) L 07/02/17 22:36 Urine Color Yellow (YELLOW) 07/02/17 13:09 Urine Clarity Hazy (Clear) 07/02/17 13:09 Urine pH 5.0 (5.0-8.0) 07/02/17 13:09 Ur Specific [place] 1.025 (1.003-1.030) 07/02/17 13:09 Urine Protein 2+ mg/dL (NEGATIVE) H 07/02/17 13:09 Urine Glucose (UA) Normal mg/dL (Normal) 07/02/17 13:09 Urine Ketones Negative mg/dL (NEGATIVE) 07/02/17 13:09 Urine Blood 3+ (NEGATIVE) H 07/02/17 13:09 Urine Nitrate Negative (NEGATIVE) 07/02/17 13:09 Urine Bilirubin Negative (NEGATIVE) 07/02/17 13:09 Urine Urobilinogen Normal mg/dL (0.2-1.0) 07/02/17 13:09 Ur Leukocyte Esterase Neg Kit/uL (Negative) 07/02/17 13:09 Urine WBC (Auto) 5 /hpf (0-5) 07/02/17 13:09 Urine RBC (Auto) 11 /hpf (0-3) H 07/02/17 13:09 Ur Squamous Epith Cells 1 /hpf (0-5) 07/02/17 13:09 Amorphous Sediment Few /ul (<OCC) H 07/02/17 13:09 Urine Bacteria Occ (<OCC) H 07/02/17 13:09 Urine Opiates Screen Positive (NEGATIVE) 07/02/17 13:09 Urine Methadone Screen Negative (NEGATIVE) 07/02/17 13:09 Ur Barbiturates Screen Negative (NEGATIVE) 07/02/17 13:09 Ur Phencyclidine Scrn Negative (NEGATIVE) 07/02/17 13:09 Ur Amphetamines Screen Negative (NEGATIVE) 07/02/17 13:09 U Benzodiazepines Scrn Positive (NEGATIVE) 07/02/17 13:09 U Oth Cocaine Metabols Negative (NEGATIVE) 07/02/17 13:09 U Cannabinoids Screen Negative (NEGATIVE) 07/02/17 13:09 Alcohol, Quantitative < 10 mg/dl (0-10) 07/02/17 11:32 Blood Type AB POSITIVE 07/02/17 11:32 Blood Type Confirm AB POSITIVE 07/02/17 11:32 Antibody Screen Negative 07/02/17 11:32 - Hospital Course Hospital Course: This is a 66 year old F with hx of polysubstance abuse including cocaine, morphine, xanax, antidepressant with history of depression, bipolar disorder, chronic pain brought to the ER after being found unconscious by daughter. She was intubated in the field and as per daughter there was bloody aspirate through mouth. In ER she was reintubated and started on pressors. She is currently on two pressor support with elevated troponins and aspiration PNA s/p bronchoscopy. She recieved two units PRBC in ER and has had an appropriate response. There is no blood in NG tube. No s/s of cirrhosis or portal HTn and hence octreotide gtt can be discontinued. Can transition PPI gtt to NGT for stress prophylaxis. No s/s of overt GI bleeding and hence no urgent indication of endoscopic evaluation. will send hepatitis profile and auto immune serologies although abnormal LFt is likely due to ischemic hepatitis. Pt was on supportive care in MICU, todday Discharge Exam - Head Exam Head Exam: ATRAUMATIC, NORMAL INSPECTION, NORMOCEPHALIC Discharge Plan - Follow Up Plan Condition: CRITICAL Disposition: WITH WITHOUT AUTOPSY
[2017-07-05] MEDS ORDERED: Influenza Virus Vaccine 45 mcg/0.5 ml Syr IM ONE (10:00)
[2017-07-05] MEDS ORDERED: Pneumococcal 23-Valent Vaccine IM ONE (10:00)
== END 2017-07-04 06:50 | DRG 853 ==
LOC: C.ER 11:03 → C.9I 12:07
PROVIDERS: ADMIT Internal Medicine; ATTEND Internal Medicine
PROC: 0B9H8ZX Drainage of Lung Lingula, Via Natural or Artificial Opening Endoscopic, Diagnostic (ICD-10-PCS; 2017-07-02)
PROC: 0BH17EZ Insertion of Endotracheal Airway into Trachea, Via Natural or Artificial Opening (ICD-10-PCS; 2017-07-02)
PROC: 06HY33Z Insertion of Infusion Device into Lower Vein, Percutaneous Approach (ICD-10-PCS; 2017-07-02)
PROC: 3E033XZ Introduction of Vasopressor into Peripheral Vein, Percutaneous Approach (ICD-10-PCS; 2017-07-02)
PROC: 30233L1 Transfusion of Nonautologous Fresh Plasma into Peripheral Vein, Percutaneous Approach (ICD-10-PCS; 2017-07-02)
PROC: 5A1945Z Respiratory Ventilation, 24-96 Consecutive Hours (ICD-10-PCS; principal; 2017-07-02 15:00)
DX: A41.9 Sepsis, unspecified organism (principal); R65.21 Severe sepsis with septic shock; J96.01 Acute respiratory failure with hypoxia; J69.0 Pneumonitis due to inhalation of food and vomit; N17.9 Acute kidney failure, unspecified; K92.0 Hematemesis; T42.4X1A Poisoning by benzodiazepines, accidental (unintentional), initial encounter; I48.91 Unspecified atrial fibrillation; T40.2X1A Poisoning by other opioids, accidental (unintentional), initial encounter; I10 Essential (primary) hypertension; F32.9 Major depressive disorder, single episode, unspecified; F17.210 Nicotine dependence, cigarettes, uncomplicated; F14.10 Cocaine abuse, uncomplicated; R74.8 Abnormal levels of other serum enzymes; R74.0 Nonspecific elevation of levels of transaminase and lactic acid dehydrogenase [LDH]; F13.10 Sedative, hypnotic or anxiolytic abuse, uncomplicated; G89.29 Other chronic pain; Z82.49 Family history of ischemic heart disease and other diseases of the circulatory system; Z79.01 Long term (current) use of anticoagulants; Z83.3 Family history of diabetes mellitus; Y92.019 Unspecified place in single-family (private) house as the place of occurrence of the external cause